=== PATIENT | female | born 1935 | race Caucasian/White ===

== ENCOUNTER 2017-08-21 11:01 | Inpatient (IN) ==
[2017-08-21 12:00] LABS: Mean Corpuscular HGB Conc 33.1 g/dL (31.0-36.0); Mean Corpuscular Hemoglobin 27.8 pg (26.0-34.0); Platelet Count 412 K/mcL (140-440); RBC 4.32 M/mcL (4.00-5.20); Red Cell Distribution Width 15.1 % (11.5-14.5)
[2017-08-21 12:23] LABS: ALT/SGPT 24 U/l (0-40); Albumin 3.7 gm/dL (3.2-5.2); Alkaline Phosphatase 80 U/L (39-117); Blood Urea Nitrogen 11 mg/dl (8-23)
[2017-08-21 12:25] LABS: Basophils % (Manual) 1 % (0-2); Lymphocytes % 16 % (15-49); Monocytes % (Manual) 5 % (1-12); Platelet Estimate NORMAL (NORMAL); RBC Morphology NORMAL (NORMAL); Segmented Neutrophils % 78 % (38-78)
[2017-08-21] MEDS: 0.9 % SODIUM CHLORIDE 1,000 ML IV SCH ×2 (12:30→16:52)
--- NOTE | 2017-08-21 12:38 | Emergency Department Note ---
Weakness HPI - General Chief complaint: Weakness Stated complaint: Weakness Time Seen by Provider: 08/21/17 11:33 Source: family Mode of arrival: wheelchair Limitations: physical limitation - History of Present Illness HPI Narrative: This pleasant 81-year-old female comes to the emergency room at the request of her primary care physician, Dr. Travis Johnson, who called me this morning. He reported her history of COPD and some chronic hyponatremia that has been difficult at times to figure out what to do and cause. She has had symptoms of weakness, slurred speech, mental dysfunction. She has had a recent pneumonia that was seen on recent CT scan is of bilateral posterior basilar infiltrate and suspicious for aspiration although she has no specific history of this. She is also had some nausea and vomiting. She has chronic GI symptoms. She has had her sodium levels repeated, has had fluid retention, has been losing some weight. She has been on doxycycline for pneumonia. She has been to the emergency room 2 times. Because of her mental status changes and weakness a CT recently was done of her head. Consideration for observation and trying to give her some additional fluid and/or workup is discussed. Patient reports that a year ago she was seen for her low sodium and admitted for several days. She was acting a little crazy at that time and could not speak well. Sometimes now (currently) it seems that she cannot get her mouth to work, and she has some dysfunction in her left hand as well as some weakness in her right arm. She has had recent CT scan of the brain and chest as well as an ultrasound of her heart she believes this was 5 days ago. Her last pill for doxycycline for the pneumonia was yesterday. The pneumonia has been for a couple of weeks. It started as a soreness in her chest and wheezing and a little blood in her phlegm. The weakness has been going on for at least a week. Her legs feel weak and are hard to move. She cannot seem to do much. This is made her somewhat even depressed and tearful recently. She only takes her celecoxib maybe once a week. She rarely uses her narcotics. She is not on any diuretic. She does not have any chronic kidney failure, cirrhosis or CHF that she is aware of. She has no history of tuberculosis that she is aware of. No history of thyroid disease that she knows of. She is not taking any antipsychotics or antidepressants. Patient lives in her own home with her . - Related Data Home Medications Medication Instructions Recorded Confirmed budesonide DR - ER 3 mg 3 mg PO TID each 11/02/14 08/21/17 capsule,delayed,extended release multivitamin tablet 1 tab PO QDAY tab 11/02/14 08/20/17 Bifidobacterium infantis 4 mg 4 mg PO QDAY 09/05/16 08/21/17 capsule sodium chloride 1 gram tablet 1 tab PO BID tab 08/09/17 08/20/17 Previous Rx's Medication Instructions Recorded tiotropium bromide 18 mcg capsule 1 cap INHALATION QDAY #90 puff 07/30/16 with inhalation device hyoscyamine 0.125 mg sublingual 0.125 mg PO Q6H PRN #60 tab 09/05/16 tablet albuterol sulfate HFA 90 90 mcg INHALATION Q6H #8.5 g 11/27/16 mcg/actuation aerosol inhaler inhalational spacing device See Dose Instructions .ROUTE 11/29/16 .MEDSUPPLY #1 each celecoxib 200 mg capsule 200 mg PO BID PRN 90 Days #180 cap 01/22/17 hydrocodone 5 mg-acetaminophen 325 0.5 tab PO Q8H PRN #20 tab 01/22/17 mg tablet ondansetron 4 mg disintegrating 4 mg PO Q6H PRN #20 tab 01/22/17 tablet metoclopramide 5 mg tablet 5 mg PO TID #30 tab 03/19/17 potassium chloride ER 10 mEq 10 meq PO QDAY #90 tab 05/23/17 tablet,extended release fluticasone 250 mcg-salmeterol 50 1 inh INHALATION Q12H #180 each 07/09/17 mcg/dose blistr powdr for inhalation lansoprazole 30 mg capsule,delayed 60 mg PO QDAY #180 cap 07/19/17 release pilocarpine 5 mg tablet 5 mg PO TID #270 tab 07/19/17 hydroxychloroquine 200 mg tablet 200 mg PO QDAY #90 tab 07/23/17 Nebulizer Machine and associated #1 each 08/09/17 supplies ipratropium-albuterol 0.5 mg-3 3 ml INHALATION Q6H PRN #90 ml 08/09/17 mg(2.5 mg base)/3 mL nebulization soln doxycycline hyclate 100 mg tablet 100 mg PO BID #20 tab 08/10/17 Allergies Allergy/AdvReac Type Severity Reaction Status Date / Time azithromycin [From Zithromax] Allergy Severe Anaphylaxis Verified 08/20/17 15:48 azathioprine [From Imuran] Allergy Unknown Anaphylaxis Verified 08/20/17 15:48 clarithromycin Allergy Unknown Palpitation Verified 08/20/17 15:48 s morphine AdvReac Severe Vomiting Verified 08/20/17 15:48 Erythromycin Base AdvReac Unknown Vomiting Verified 08/20/17 15:48 lactose AdvReac Verified 08/21/17 11:13 tape Allergy Intermediate Rash Uncoded 08/20/17 15:48 codeine sulfate AdvReac Intermediate Vomiting Uncoded 08/20/17 15:48 Review of Systems Review of Systems: No fevers or chills. She does have some night sweats. She has had a little chest pain with breathing. His coughing a little short of breath. Abdominal discomfort seems like a pressure. No vomiting. No dysuria. Has some right arm pain which she attributes to degenerative disks in her neck. Has occasional headaches. She does feel quite weak. She has numbness of the left upper extremity as well as weakness in that left hand. Her right foot feels numb just today. She admits to some anxiety chronically. She has had some depression more recently because of her disabilities described above. Has had significant fatigue for a month. She has cold intolerance. She has lost some weight, used to weigh 134. She does have fragile bleeding of her arms and at their areas with any bumping. She denies bleeding gums or blood in her stools. Past Medical History - Past Medical History Medical history: Reports: arthritis, cancer (melanoma, colon neoplasm), COPD, GERD, osteoporosis, other (Crohns, Sjogrens, Chronic pain, Gastroparesis, Gout. Hyponatremia, chronic. Pneumonia. Pseudogout. Sicca Syndrome. Weight loss, unintended. Ventricular fibrillation. Diverticulosis. Diarrhea. DDD.). Denies: CHF, CVA, DM, liver disease, myocardial infarction, renal disease, thyroid disease Psychiatric history: Reports: anxiety (Mild). Denies: depression (now experiencing symptoms.) Surgical history ED: Reports: appendectomy, cataract, cholecystectomy, colectomy (Partial, due to Crohn's), hip replacement (Right), hysterectomy, knee replacement (Bilateral), pacemaker/AICD, other (biliary stent. Anal fissure repair. Anal stricture dilation. ) - Social History smoking status: Former smoker (Quit 30 years ago) Alcohol use: Reports: None Drug use: Reports: none. Denies: marijuana Physical Exam Limitations: physical limitation General appearance: alert, in no apparent distress Head: atraumatic, normocephalic Eye: Present: normal appearance, PERRL, EOMI. Absent: scleral icterus, conjunctival injection ENT: normal oropharynx, mucous membranes moist Neck: Present: trachea midline. Absent: lymphadenopathy, thyromegaly Respiratory: Present: normal lung sounds bilaterally. Absent: respiratory distress, wheezes, stridor, accessory muscle use, prolonged expiratory phase Cardiovascular: Present: regular rate, normal rhythm. Absent: systolic murmur, diastolic murmur Abdominal: Present: soft, tenderness (mild in the lower 1/2.). Absent: distention, guarding, rebound, rigidity, organomegaly, mass Extremities: Absent: pedal edema, pretibial edema, calf tenderness Back: Absent: CVA tenderness (R), CVA tenderness (L), spinous process tenderness Neurological: Present: alert, oriented X3 Psychiatric: Present: normal affect, normal mood, other (Became mildly tearful when talking about her multiple problems) Skin: Present: warm, dry Course Vital Signs Temperature 97.6 F 08/21/17 11:03 Pulse Rate 80 08/21/17 11:03 Respiratory Rate 22 08/21/17 11:03 Pulse Oximetry (%) 95 08/21/17 11:03 Temperature 97.6 F 08/21/17 11:33 Pulse Rate 69 08/21/17 12:46 Respiratory Rate 18 08/21/17 12:46 Blood Pressure 122/110 08/21/17 12:46 Pulse Oximetry (%) 93 08/21/17 12:46 Weakness - MDM Narrative Medical decision making narrative: 11:45 AM - Difficult chronic hyponatremia case. Will repeat labs even though they were done yesterday. Consider further workup and/or treatment. Recent CT scans were negative. 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 She has some difficulty with speech but overall is relatively eloquent and memory is intact. Differential dx: Could her hyponatremia simply be SIADH? Could there be tuberculosis? Could the infiltrates that show up on the CT scan be actual cancer? (ALSO HAD MULTIPLE SMALL NODULES - inflammatory?) Could this be essential hyponatremia (reset osmostat)? No previous osmolalities tested that I could see. 1:00 PM -case discussed with Dr. Potter, hospitalist, who kindly accepted this patient as observation. She will consider assist with additional work-up or intervention; consider fluorinef, etc. Does she need new antibiotic? Bronchoscopy? TSH? Other hormone levels? Osmolarities urine and blood? Currently receiving one liter of NS, and at home has been getting Saline pills, 1 gram BID. - Lab Data Result diagrams: 08/21/17 11:32 08/21/17 11:32 Lab Results 08/21/17 08/21/17 Range/Units 11:32 11:32 WBC 8.6 (4.5-11.0) K/mcL RBC 4.32 (4.00-5.20) M/mcL Hgb 12.0 (12.0-15.0) g/dL Hct 36.3 (36.0-48.0) % MCV 84.0 (80.0-100.0) fL MCH 27.8 (26.0-34.0) pg MCHC 33.1 (31.0-36.0) g/dL RDW 15.1 H (11.5-14.5) % Plt Count 412 (140-440) K/mcL MPV 6.8 L (7.4-10.4) fL Total Counted 100 Seg Neutrophils % 78 (38-78) % Band Neutrophils % Not Reportable Lymphocytes % 16 (15-49) % Monocytes % (Manual) 5 (1-12) % Basophils % (Manual) 1 (0-2) % Platelet Estimate Normal (NORMAL) RBC Morphology Normal (NORMAL) Sodium 126 L (133-145) mmol/L Potassium 4.1 (3.3-5.1) mmol/L Chloride 89 L (96-108) mmol/L Carbon Dioxide 26 (22-30) mmol/L Anion Gap 11.0 (8-16) BUN 11 (8-23) mg/dl Creatinine 0.8 (0.6-1.1) mg/dl GFR Calculation 69 Glucose 91 (70-105) mg/dL Calcium 9.2 (8.6-10.4) mg/dl Total Bilirubin 0.5 (0.0-1.0) mg/dL AST 37 (0-37) U/l ALT 24 (0-40) U/l Alkaline Phosphatase 80 (39-117) U/L Total Protein 7.3 (5.9-8.4) gm/dL Albumin 3.7 (3.2-5.2) gm/dL Globulin 3.6 (2.2-3.7) gm/dL Albumin/Globulin Ratio 1.0 (1.0-2.3) Disposition Pt seen by MANAGER INSTRUMENTATION/PA only: No Clinical Impression: Hyponatremia, Weakness, H/O calcium pyrophosphate deposition disease (CPPD) Diarrhea Qualifiers: Diarrhea type: unspecified type Qualified Code(s): R19.7 - Diarrhea, unspecified Pneumonia Qualifiers: Pneumonia type: due to unspecified organism Laterality: bilateral Lung location : lower lobe of lung Qualified Code(s): J18.1 - Lobar pneumonia, unspecified organism Disposition: Xfer As Outpt/Obs ([facility]) Referrals: Travis Johnson MD [Primary Care Provider] -
[2017-08-21 16:24] LABS: Appearance,Urine CLEAR; Bilirubin,Urine NEG (NEG); Color,Urine YELLOW; Glucose,Urine (UA) NEGATIVE (NEG); Leukocyte Esterase,Urine NEG /uL (NEG); Protein,Urine NEG (NEG); Specific Gravity,Urine 1.012 (1.000-1.035); Urine Blood NEG mg/dL (<0.03); Urobilinogen,Urine NEG (NEG)
--- NOTE | 2017-08-21 17:28 | Internal Med History&Physical ---
Medical - H&P: [facility] Patient information: Note initiated : 08/21/17 at 4:56 pm Service Date, if different from initiated Date: [] Patient: Maribeth Berrios a 81 y/o F admitted on 08/21/17 for Weakness. Chief Complaint: lightheadedness and weakness History of present illness: Ms. Berrios is a 81 year old F, referred to ED by PCP (Dr Travis Johnson) for chronic hyponatremia, weakness, stroke-like symptoms and frequent falls. Patient has had an extensive work-up done including CT-head, ECHO, CT-scan etc. as outpatient. Now requesting admission for evaluation and treatment. Patient has had Crohn's disease for many years till 2010. However, started to have problems consistent with gastroparesis since then. The last few weeks patient has sought medical attention for a variety of reasons including coughing, SOB and dysarthria. She was diagnosed with bilateral pneumonia by CTAchest done on 08/16 for SOB. On 08/20 Na was 124 and on 126. Patient states that she has had lightheadedness upon standing for the last 6 days. However, overall decline for about a year with gradual weight loss. Was 165 lbs and is currently only 102 lbs. She c/o early satiety and nausea or epigastric pain with po intake. Patient was diagnosed with gastroparesis by gastrografin study (passage took more than 4 hours). She only drinks supplements , total diane intake is less than 1000 diane daily. Other problems include severe back pain due to multiple compression fractures in T and L spine. Patient has had multiple falls due to weakness. There is no localized motor deficit. - Constitutional Constitutional: Present: anorexia, fatigue, frequent falls, weakness, weight loss - Cardiovascular Cardiovascular: Present: lightheadedness. Absent: chest pain, claudication, irregular heart rhythm, palpatations - Respiratory Respiratory: Absent: cough, dyspnea, hemoptysis - Gastrointestinal Gastrointestinal: Present: dyspepsia, dysphagia, early satiety, vomiting - Genitourinary Genitourinary: Absent: difficulty urinating, dysuria Medical - H&P: PMH Medical history: Medical History Hyponatremia (Acute) Pneumonia (Acute) Osteopenia (Acute) H/O calcium pyrophosphate deposition disease (CPPD) (Chronic) Osteoarthritis (Chronic) Sicca syndrome (Chronic) Encounter for long-term current use of high risk medication (Chronic) Inflammatory arthropathy (Chronic) Epigastric burning sensation (Chronic) Weight loss, unintentional (Chronic) Bronchitis (Acute) COPD (chronic obstructive pulmonary disease) with acute bronchitis (Acute) Gastroparesis (Chronic) Back pain (Chronic) Diverticulosis of colon (Acute) Anal benign neoplasm (Acute) Wound infection (Acute) Wound cellulitis (Acute) Ventricular fibrillation (Acute) Pain due to varicose veins of lower extremity (Acute 08/02/14) History of urinary tract infection (Acute) Melanoma of skin (Acute) Sjogren's syndrome (Acute) Polyarthropathy or polyarthritis of multiple sites (Acute) Phlebitis and thrombophlebitis of superficial vessels of lower extremities ( Acute 08/02/14) Perianal abscess (Acute) Osteoporosis (Acute) Nausea (Acute) Postmenopausal related mood disorder (Acute) Analgesic use (Acute) Hernia, hiatal (Acute) Gouty arthropathy (Acute) Gout (Acute) Gastroesophageal reflux (Acute) Fracture of finger, closed (Acute) Enthesopathy of hip region (Acute) Early satiety (Acute) Diverticulosis of small intestine (Acute) Diarrhea (Acute) Crohn's disease (Acute) Chronic obstructive pulmonary disease (Chronic) Arthritis (Acute) Ankle pain (Acute 07/22/14) Anal fissure (Acute) Abdominal pain (Acute) Abdominal bloating (Acute) Surgical history: Past Surgical History History of colonoscopy (Acute 02/22/15) History of biliary stent insertion (Acute) History of knee replacement (Acute) History of total hip arthroplasty (Acute) History of sigmoidoscopy (Acute 07/27/15) History of rectal surgery (Acute) History of hysterectomy (Acute) History of esophagogastroduodenoscopy (Acute 09/17/14) History of colectomy (Acute) History of cholecystectomy (Acute) History of intestinal surgery (Acute) History of appendectomy (Acute) History of automatic internal cardiac defibrillator (AICD) (Acute) Status post laparoscopic-assisted sigmoidectomy (Chronic 10/11/15) Smoking status: Former smoker Drug use: none Alcohol use: none Medical - H&P: Meds Home Medications Medication Instructions Recorded Confirmed Type budesonide DR - ER 3 mg 3 mg PO TID each 11/02/14 08/21/17 History capsule,delayed,extended release multivitamin tablet 1 tab PO QDAY tab 11/02/14 08/21/17 History tiotropium bromide 18 mcg capsule 1 cap INHALATION QDAY #90 puff 07/30/16 Rx with inhalation device Bifidobacterium infantis 4 mg 4 mg PO QDAY 09/05/16 08/21/17 History capsule hyoscyamine 0.125 mg sublingual 0.125 mg PO Q6H PRN #60 tab 09/05/16 08/21/17 Rx tablet albuterol sulfate HFA 90 90 mcg INHALATION Q6H #8.5 g 11/27/16 08/21/17 Rx mcg/actuation aerosol inhaler inhalational spacing device See Dose Instructions .ROUTE 11/29/16 08/20/17 Rx .MEDSUPPLY #1 each celecoxib 200 mg capsule 200 mg PO BID PRN 90 Days #180 cap 01/22/17 08/21/17 Rx hydrocodone 5 mg-acetaminophen 325 0.5 tab PO Q8H PRN #20 tab 01/22/17 08/21/17 Rx mg tablet ondansetron 4 mg disintegrating 4 mg PO Q6H PRN #20 tab 01/22/17 08/21/17 Rx tablet metoclopramide 5 mg tablet 5 mg PO TID #30 tab 03/19/17 08/21/17 Rx potassium chloride ER 10 mEq 10 meq PO QDAY #90 tab 05/23/17 08/21/17 Rx tablet,extended release fluticasone 250 mcg-salmeterol 50 1 inh INHALATION Q12H #180 each 07/09/1708/21 Rx mcg/dose blistr powdr for inhalation lansoprazole 30 mg capsule,delayed 60 mg PO QDAY #180 cap 07/19/17 08/21/17 Rx release pilocarpine 5 mg tablet 5 mg PO TID #270 tab 07/19/17 08/21/17 Rx hydroxychloroquine 200 mg tablet 200 mg PO QDAY #90 tab 07/23/17 08/21/17 Rx Nebulizer Machine and associated #1 each 08/09/17 08/20/17 Rx supplies ipratropium-albuterol 0.5 mg-3 3 ml INHALATION Q6H PRN #90 ml 08/09/17 08/21/17 Rx mg(2.5 mg base)/3 mL nebulization soln sodium chloride 1 gram tablet 1 tab PO BID tab 08/09/17 08/21/17 History Allergies Allergy/AdvReac Type Severity Reaction Status Date / Time azithromycin [From Zithromax] Allergy Severe Anaphylaxis Verified 08/20/17 15:48 azathioprine [From Imuran] Allergy Unknown Anaphylaxis Verified 08/20/17 15:48 clarithromycin Allergy Unknown Palpitation Verified 08/20/17 15:48 s morphine AdvReac Severe Vomiting Verified 08/20/17 15:48 Erythromycin Base AdvReac Unknown Vomiting Verified 08/20/17 15:48 lactose AdvReac Verified 08/21/17 11:13 tape Allergy Intermediate Rash Uncoded 08/20/17 15:48 codeine sulfate AdvReac Intermediate Vomiting Uncoded 08/20/17 15:48 Medical - H&P: Exam - Constitutional Vitals: Temp Pulse Resp BP Pulse Ox 98.5 F 82 16 123/71 96 08/21/17 16:00 08/21/17 16:00 08/21/17 16:00 08/21/17 16:00 08/21/17 16:00 General appearance: no acute distress, thin - Head Head exam: Present: normal inspection - Eye Eye exam: Present: PERRL - Neck Neck exam: Present: normal inspection - Respiratory Respiratory exam: Present: normal respiratory exam - Cardiovascular Cardiovascular exam: Present: irregular rhythm Additional comments: S/P AICD placement - GI/Abdominal GI/Abdominal exam: Present: normal bowel sounds, soft - Extremities Exam Extremities exam: Present: normal inspection - Expanded Upper Extremities Exam General: Present: abrasion - Neurological Exam Neurological exam: Present: CN II-XII intact - Skin Additional comments: Multiple ecchymoses due to falls Medical - H&P: Reslt - Labs CBC & Chem 7: 08/21/17 11:32 08/21/17 11:32 Labs: Short CBC 08/21/17 Range/Units 11:32 WBC 8.6 (4.5-11.0) K/mcL Hgb 12.0 (12.0-15.0) g/dL Hct 36.3 (36.0-48.0) % Plt Count 412 (140-440) K/mcL BMP 08/21/17 11:32 Sodium 126 L Potassium 4.1 Chloride 89 L Carbon Dioxide 26 BUN 11 Creatinine 0.8 Glucose 91 Calcium 9.2 Liver Function 08/21/17 Range/Units 11:32 Total Bilirubin 0.5 (0.0-1.0) mg/dL AST 37 (0-37) U/l ALT 24 (0-40) U/l Alkaline Phosphatase 80 (39-117) U/L Albumin 3.7 (3.2-5.2) gm/dL Urine 08/21/17 Range/Units 15:58 Urine Color Yellow Urine Appearance Clear Urine pH 6.0 (5.0-9.0) Ur Specific [place] 1.012 (1.000-1.035) Urine Protein Neg (NEG) mg/dL Urine Glucose (UA) Negative (NEG) mg/dL Medical - H&P: A/P - Narrative A/P Narrative: 81-year-old with following problems: - Generalized weakness, lightheadedness, falls CT-head: no acute changes. Chronic ischemic changes Likely due to weight/muscle loss No orthostatic hypotension. TSH/cortisol level/vit B 12 level: wnl. Aldosterone level: P Urine sodium: 40 (however patient is on NaHCO3 tabs) - Gastroparesis/ early satiety. Sometimes nausea and vomiting after solid food intake. Denies problems with swallowing. Is on reglan and zofran - Gradual loss in weight since one year. Baseline weight was 165 lbs. Attributes it to the gastroparesis and early satiety - Hyponatremia of 126 DD SIADH, renal wasting sx, poor intake Has been started on salt tabs BID on 08/20 - Sicca syndrome - Chrohn's disease dormant since 2010 - Chronic severe back pain due to multiple compression fractures - S/P AICD placement for cardiac arrest in 2010 PLAN: - Check urine sodium, cortisol level etc. TSH ...done - calorie count and surveillance director recomm regarding supplements containing Na and protein. - Pt/OT eval - increase to salt tab to TID and watch BP Medical - H&P: Qual - Stroke Symptom Onset Unknown: No - VTE Deep Vein Thrombosis/Pulmonary Embolism Present on Admission: No
[2017-08-21] MEDS ORDERED: IPRATROPIUM/ALBUTEROL 3 ML AMPUL.NEB NEB PRN (17:43)
[2017-08-21] MEDS ORDERED: CELECOXIB 200 MG CAPSULE PO PRN (17:43)
[2017-08-21] MEDS ORDERED: SODIUM CHLORIDE 1 GM TABLET PO SCH (21:00)
[2017-08-21] MEDS ORDERED: METOCLOPRAMIDE 5 MG TABLET PO SCH (21:00)
[2017-08-21] MEDS ORDERED: HYDROcodone/APAP 5/325MG TABLET PO ONE (21:18)
[2017-08-21] MEDS ORDERED: ONDANSETRON ODT 4 MG TABLET ONE (21:18)
[2017-08-21] MEDS: SODIUM CHLORIDE 1 GM TABLET PO SCH (21:28)
[2017-08-21] MEDS: 0.9 % SODIUM CHLORIDE 10 ML SYRINGE IV SCH (21:29)
[2017-08-21] MEDS ORDERED: ONDANSETRON ODT 4 MG TABLET SL PRN (21:54)
[2017-08-21] MEDS: FLUTICASONE/SALMETEROL 250/50 INHALER #14 INH SCH (22:30)
[2017-08-21] MEDS: PILOCARPINE HCL 5 MG PO SCH (22:30)
[2017-08-21] MEDS: ALBUTEROL SULFATE 1 PUFF INHALER INH SCH (22:31)
[2017-08-22] MEDS: ALBUTEROL SULFATE 1 PUFF INHALER INH SCH ×4 (00:13→17:51)
[2017-08-22] MEDS: HYDROcodone/APAP 5/325MG TABLET PO PRN (04:35)
[2017-08-22] MEDS: 0.9 % SODIUM CHLORIDE 10 ML SYRINGE IV SCH ×3 (04:39→20:34)
[2017-08-22 05:35] LABS: Basophils # (Auto) 0 K/mcL (0.0-0.3); Basophils % (Auto) 0.7 % (0.0-2.0); Eosinophils # (Auto) 0.2 K/mcL (0.0-0.7); Eosinophils % (Auto) 2.9 % (0.0-7.0); Granulocytes % (Auto) 51.7 % (38.0-78.0); Lymphocytes % (Auto) 32.5 % (15.5-49.0); Mean Cell Volume 84.4 fL (80.0-100.0); Mean Corpuscular HGB Conc 33.1 g/dL (31.0-36.0); Mean Corpuscular Hemoglobin 27.9 pg (26.0-34.0); Monocytes # (Auto) 0.7 K/mcL (0.1-0.9); Monocytes % (Auto) 12.2 % (1.0-12.0); Platelet Count 429 K/mcL (140-440); RBC 4.11 M/mcL (4.00-5.20); Red Cell Distribution Width 15.5 % (11.5-14.5)
[2017-08-22 05:58] LABS: ALT/SGPT 22 U/l (0-40); Albumin 3.4 gm/dL (3.2-5.2); Albumin/Globulin Ratio 0.9 (1.0-2.3); Alkaline Phosphatase 73 U/L (39-117); Bilirubin,Direct < 0.2 mg/dL (0.0-0.3); Blood Urea Nitrogen 12 mg/dl (8-23); Gamma Glutamyl Transpeptidase 38 U/L (5-36); Uric Acid 3.5 mg/dL (2.5-8.0)
[2017-08-22] MEDS: PANTOPRAZOLE 40 MG TABLET PO SCH (07:16)
[2017-08-22] MEDS ORDERED: METOCLOPRAMIDE 10 MG TABLET PO SCH (07:30)
[2017-08-22] MEDS: FLUTICASONE/SALMETEROL 250/50 INHALER #14 INH SCH ×2 (09:00→20:25)
[2017-08-22] MEDS: PILOCARPINE HCL 5 MG PO SCH ×3 (09:00→20:30)
[2017-08-22] MEDS: SODIUM CHLORIDE 1 GM TABLET PO SCH ×3 (09:02→20:21)
[2017-08-22] MEDS: POTASSIUM CHLORIDE 10 MEQ TABLET PO SCH (09:02)
[2017-08-22] MEDS: HYDROXYCHLOROQUINE 200 MG TABLET PO SCH (09:02)
--- NOTE | 2017-08-22 09:10 | XRay Report ---
CLINICAL INFORMATION: Follow up lower lobe infiltrates COMPARISON: Chest CT 08/16/2017 and plain film 08/09/2017 FINDINGS: Automated defibrillator in stable satisfactory position. Cardiomediastinal silhouette and pulmonary vessels are normal. Moderate sized densely consolidated infiltrate posterior left lower lobe and smaller infiltrate posterior right lower lobe show mild improvement since 08/09/2017 plain film. Small bilateral pleural effusions noted IMPRESSION: Moderate sized consolidated infiltrate posterior left lower lobe with smaller infiltrate in the posterior right lower lobe - mild improvement. Interpreted and Authenticated by: Kailash Wild 08/22/17
[2017-08-22] MEDS ORDERED: AZITHROMYCIN 250 MG TABLET PO ONE (09:12)
[2017-08-22] MEDS ORDERED: PROMETHAZINE 25 MG/ML VIAL IV PRN (09:13)
[2017-08-22] MEDS: metroNIDAZOLE 500 MG/100 ML BAG IV SCH ×3 (10:24→22:35)
[2017-08-22] MEDS: cefTRIAXone 1 GM VIAL IV SCH (10:24)
[2017-08-22] MEDS ORDERED: NON FORMULARY MEDICATION 1 DOSE MISCELL TOPICAL SCH (11:00)
--- NOTE | 2017-08-22 11:01 | Internal Med Progress Note ---
Medical - PN: Subj Patient information: Note initiated : 08/22/17 at 10:58 am Service Date, if different from initiated Date: [] Patient: Maribeth Berrios a 81 y/o F admitted on 08/21/17 for Weakness. Chief Complaint: [] Interval history: Ms. Berrios is a 81 year old F, referred to ED by PCP (Dr Travis Johnson) for chronic hyponatremia, weakness, stroke-like symptoms and frequent falls. Patient has had an extensive work-up done including CT-head, ECHO, CT-scan etc. as outpatient. Now requesting admission for evaluation and treatment. Patient has had Crohn's disease for many years till 2010. However, started to have problems consistent with gastroparesis since then. The last few weeks patient has sought medical attention for a variety of reasons including coughing, SOB and dysarthria. She was diagnosed with bilateral pneumonia by CTAchest done on 08/16 for SOB. On 08/20 Na was 124 and on 126. Patient states that she has had lightheadedness upon standing for the last 6 days. However, overall decline for about a year with gradual weight loss. Was 165 lbs and is currently only 102 lbs. She c/o early satiety and nausea or epigastric pain with po intake. Patient was diagnosed with gastroparesis by gastrografin study (passage took more than 4 hours). She only drinks supplements , total diane intake is less than 1000 diane daily. Other problems include severe back pain due to multiple compression fractures in T and L spine. Patient has had multiple falls due to weakness. There is no localized motor deficit. 08/22 She is seen and examined, family by the bedside. Patient has no acute complaints. Slept well yesterday. Tolerated p.o. diet well. She notes she has been diagnosed with gastroparesis and has multiple workup for GI pathology. She follows up with Dr. Vale. She notes that pain medications often times because worsening of her GI symptoms. Her X ray shows pneumonia, slightly improving. Patient has been treated with doxycycline as outpatient. Will start patient on rocephin and metronidazole today. Blood cultures sent Calorie count ordered continue to work with therapy to improve gait and balance. Pertinent ROS: Denies headache, dizziness Denies chest pain, palpitations Denies cough or shortness of breath Denies abdominal pain, nausea or vomiting. (not present today, but has it after taking pain meds) - Constitutional Vitals: Vital Signs Temp Pulse Resp BP Pulse Ox 97.5 F 67 24 H 134/83 95 08/22/17 07:12 08/22/17 07:12 08/22/17 07:12 08/22/17 07:12 08/22/17 07:12 Period Temp Pulse Resp BP Sys/Courtney Pulse Ox Last 24 Hr 97.5 F-98.5 F 67-112 16-37 107-152/65-110 90-97 Intake and Output 08/21/17 08/22/17 08/22/17 21:59 05:59 13:59 Intake Total 1000 / 1000 120 / 120 Balance 1000 / 1000 120 / 120 Weight 99 lb Intake & Output: Intake & Output 08/21/17 08/22/17 08/22/17 21:59 05:59 13:59 Intake Total 1000 / 1000 120 / 120 Balance 1000 / 1000 120 / 120 Weight 99 lb Intake: IV 1000 / 1000 Sodium Chloride 0.9% 1,000 ml @ 1000 / 1000 500 mls/hr IV .Q2H [facility] Rx#: [id number] Oral 120 / 120 Other: Meal Breakfast Percent of Meal Consumed 75% Feeding Ability Independent Stool Size Small Stool Color Brown Stool Consistency Loose # Voids 1 2 # Bowel Movements 1 # Emeses 0 Exam: Constitutional; Afebrile, cooperative, alert, not in distress. Eyes- No icterus, , No periorbital swelling Ears- Ext ear normal, hearing normal to conversation. Neck- Midline trachea, supple Respiratory system: Air Entry equal on both sides, left basilar crackles, no wheeze, speaking full sentences no accessory muscle use. CVS- Rate rhythm regular, S1,S2 heard, no gallop, no rub. Abdomen- Soft nontender abdomen, no organomegaly, no tenderness, no guarding or rigidity, CONTROL OFFICER- AOOx3, moving all extremities, no gross focal deficit noted. Medical - PN: Obj Da - Labs CBC & Chem 7: 08/22/17 03:50 08/22/17 03:50 Labs: Abnormal Lab Results 08/22/17 08/22/17 08/21/17 03:50 03:50 11:32 Hgb 11.5 L Hct 34.7 L RDW 15.5 H MPV 7.3 L Laurel % (Auto) 12.2 H Sodium 132 L 126 L Chloride 94 L 89 L GGT 38 H Lactate Dehydrogenase 328 H Albumin/Globulin Ratio 0.9 L 08/21/17 11:32 Hgb Hct RDW 15.1 H MPV 6.8 L Laurel % (Auto) Sodium Chloride GGT Lactate Dehydrogenase Albumin/Globulin Ratio Meds: Medications Hydrocodone Bitart/Acetaminophen (Bloxom 5/325mg) 0.5 tab PO Q8HP PRN PRN Reason: Pain Last Admin: 08/22/17 04:35 Dose: 0.5 tab Albuterol Sulfate (Ventolin) 1 puff INH Q6H [facility] Last Admin: 08/22/17 05:39 Dose: Not Given Albuterol/Ipratropium (Duoneb) 3 ml NEB Q6HP PRN PRN Reason: shortness of breath or wheezin Bacitracin (Bacitracin Topical Oint) 1 dose TOPICAL HS [facility] Ceftriaxone Sodium (Rocephin) 1 gm IV DAILY [facility] Last Admin: 08/22/17 10:24 Dose: 1 gm Celecoxib (Celebrex) 200 mg PO BIDP PRN PRN Reason: Pain Glucose Oxid/Lactoperoxid/Muramidas (Biotene) 1 each TOPICAL QHS [facility] Hydroxychloroquine Sulfate (Plaquenil) 200 mg PO QDAY [facility] Last Admin: 08/22/17 09:02 Dose: 200 mg Metronidazole (Flagyl) 500 mg in 100 mls @ 100 mls/hr IV Q8H [facility] Last Admin: 08/22/17 10:24 Dose: 100 mls/hr Non-Formulary Medication () 0 dose TOPICAL DAILY [facility] Pantoprazole Sodium (Protonix) 40 mg PO QAMAC [facility] Last Admin: 08/22/17 07:16 Dose: 40 mg Bifidobacterium Infantis [Align] 4 Mg 1 dose PO DAILY [facility] Pilocarpine Hcl [ (Salagen] 5 Mg) 1 dose PO TID [facility] Last Admin: 08/21/17 22:30 Dose: Not Given Diclofenac Epolamine [Flector] 1.3% Transdermal Patch 1 dose TOPICAL Q12H [facility] Potassium Chloride (Kdur) 10 meq PO QAMCC [facility] Last Admin: 08/22/17 09:02 Dose: 10 meq Promethazine HCl (Phenergan) 12.5 mg IV Q4HP PRN PRN Reason: Nausea And Vomiting Fluticasone/Salmeterol (Advair 250-50 Diskus) 1 puff INH Q12H [facility] Last Admin: 08/21/17 22:30 Dose: Not Given Sodium Chloride (Saline Flush) 10 ml IV Q8 [facility] Last Admin: 08/22/17 04:39 Dose: 10 ml Sodium Chloride (Sodium Chloride) 1 gm PO TID [facility] Last Admin: 08/22/17 09:02 Dose: 1 gm Tiotropium [place] (Spiriva) 18 mcg INH QDAY [facility] Medical - PN: A/P - Time Spent With Patient Total time spent is greater than 50% in coordination of care (as documented) at patient's floor/unit and/or counseling patient: - Narrative A/P Narrative: A/P Narrative: Pneumonia/ Community acquired vs Aspiration pneumonitis - Pt was treated with Doxy as outpatient, start on rocephin and flagyl for now, to cover for gram negatives and anaerobes. Repeat CXR as ouatpient - Generalized weakness, lightheadedness, falls CT-head: no acute changes. Chronic ischemic changes Likely due to weight/muscle loss No orthostatic hypotension. TSH/cortisol level/vit B 12 level: wnl. Aldosterone level, pending. Urine sodium: 40 (however patient is on NaCl tabs) Patient symptoms related to poor intake, worsened with acute infection. - Gastroparesis/ early satiety. Sometimes nausea and vomiting after solid food intake and narcotic pain meds Denies problems with swallowing. Is on reglan and zofran, able to tolerate po diet well, (not taking reglan as per her) - Gradual loss in weight since one year. Baseline weight was 165 lbs. Attributes it to the gastroparesis and early satiety - Hyponatremia of 126 DD SIADH, renal wasting sx, poor intake Has been started on salt tabs BID on 4/3 Sodium level is improving, Acute infection can also result in SIADH and pt has an infection, need for long-term Salt tablets to be reconsidered once infection is resolved. - Sicca syndrome/ Sjogrens Pt on plaquenil continue same - Chrohn's disease dormant since 2010 - Chronic severe back pain due to multiple compression fractures on hydrocodone, and flector patches. consider non narcotic pain regime and narcotics tend to exacerbate gastroparesis. - S/P AICD placement for cardiac arrest in 2010 DVT hep sq Diet dysphagia diet, await [facility] Medical - PN: Qual - Stroke Symptom Onset Unknown: No - VTE Deep Vein Thrombosis/Pulmonary Embolism Present on Admission: No
[2017-08-22] MEDS: Bifidobacterium Infantis [Align] 4 MG PO SCH (11:06)
[2017-08-22] MEDS: TIOTROPIUM BROMIDE 18 MCG INHALANT INH SCH (11:06)
[2017-08-22] MEDS: ONDANSETRON 4 MG/2 ML VIAL IV PRN (11:39)
[2017-08-22] MEDS: METOCLOPRAMIDE 10 MG/2 ML VIAL IV SCH ×2 (12:41→17:27)
[2017-08-22] MEDS: HEPARIN 5,000 UNIT/ML VIAL SQ SCH ×2 (12:41→20:22)
[2017-08-22] MEDS: DICLOFENAC EPOLAMINE 1.3% TOPICAL SCH ×2 (14:24→20:25)
[2017-08-22] MEDS ORDERED: AMITRIPTYLINE 10 MG TABLET PO SCH (21:00)
[2017-08-22] MEDS ORDERED: BACITRACIN TOPICAL OINT 15 GM TUBE TOPICAL SCH (21:00)
[2017-08-22] MEDS ORDERED: LACTOPEROXI/GLUC OXID/POT THIO 1 EACH GEL..EA. TOPICAL SCH (21:00)
[2017-08-23] MEDS: METOCLOPRAMIDE 10 MG/2 ML VIAL IV SCH ×3 (00:39→12:32)
[2017-08-23] MEDS: ALBUTEROL SULFATE 1 PUFF INHALER INH SCH ×2 (00:40→05:40)
[2017-08-23] MEDS: 0.9 % SODIUM CHLORIDE 10 ML SYRINGE IV SCH (05:39)
[2017-08-23] MEDS: metroNIDAZOLE 500 MG/100 ML BAG IV SCH (05:39)
[2017-08-23 06:27] LABS: Basophils # (Auto) 0 K/mcL (0.0-0.3); Basophils % (Auto) 0.6 % (0.0-2.0); Eosinophils # (Auto) 0.1 K/mcL (0.0-0.7); Eosinophils % (Auto) 3.4 % (0.0-7.0); Granulocytes % (Auto) 49.7 % (38.0-78.0); Lymphocytes # (Auto) 1.3 K/mcL (1.5-4.8); Lymphocytes % (Auto) 31.7 % (15.5-49.0); Mean Cell Volume 84.7 fL (80.0-100.0); Mean Corpuscular HGB Conc 33.2 g/dL (31.0-36.0); Mean Corpuscular Hemoglobin 28.1 pg (26.0-34.0); Monocytes # (Auto) 0.6 K/mcL (0.1-0.9); Monocytes % (Auto) 14.6 % (1.0-12.0); Platelet Count 320 K/mcL (140-440); RBC 3.76 M/mcL (4.00-5.20); Red Cell Distribution Width 15.6 % (11.5-14.5)
[2017-08-23] MEDS: HYDROcodone/APAP 5/325MG TABLET PO PRN (06:34)
[2017-08-23] MEDS: ONDANSETRON 4 MG/2 ML VIAL IV PRN (06:39)
[2017-08-23 06:41] LABS: ALT/SGPT 19 U/l (0-40); Albumin 2.9 gm/dL (3.2-5.2); Albumin/Globulin Ratio 0.9 (1.0-2.3); Alkaline Phosphatase 63 U/L (39-117); Bilirubin,Direct < 0.2 mg/dL (0.0-0.3); Blood Urea Nitrogen 7 mg/dl (8-23); Gamma Glutamyl Transpeptidase 34 U/L (5-36); Uric Acid 3.3 mg/dL (2.5-8.0)
[2017-08-23] MEDS: PANTOPRAZOLE 40 MG TABLET PO SCH (06:42)
[2017-08-23] MEDS: POTASSIUM CHLORIDE 10 MEQ TABLET PO SCH (07:24)
[2017-08-23] MEDS ORDERED: MAGNESIUM SULFATE 2 GM/50 ML BAG IV ONE (07:44)
[2017-08-23] MEDS ORDERED: AZITHROMYCIN 250 MG TABLET PO SCH (09:00)
[2017-08-23] MEDS: HEPARIN 5,000 UNIT/ML VIAL SQ SCH (09:49)
[2017-08-23] MEDS: SODIUM CHLORIDE 1 GM TABLET PO SCH (09:50)
[2017-08-23] MEDS: HYDROXYCHLOROQUINE 200 MG TABLET PO SCH (09:50)
[2017-08-23] MEDS: cefTRIAXone 1 GM VIAL IV SCH (09:50)
[2017-08-23] MEDS: PILOCARPINE HCL 5 MG PO SCH (09:55)
[2017-08-23] MEDS: DICLOFENAC EPOLAMINE 1.3% TOPICAL SCH (09:56)
[2017-08-23] MEDS: TIOTROPIUM BROMIDE 18 MCG INHALANT INH SCH (09:58)
[2017-08-23] MEDS: FLUTICASONE/SALMETEROL 250/50 INHALER #14 INH SCH (10:09)
[2017-08-23] MEDS: Bifidobacterium Infantis [Align] 4 MG PO SCH (10:12)
--- NOTE | 2017-08-23 13:20 | Discharge Summary ---
Medical - DS: Prov Patient information: Note initiated : 08/23/17 at 1:14 pm Service Date, if different from initiated Date: [] Patient: Maribeth Berrios 81 y/o F admitted on 08/21/17 for Weakness. Chief Complaint: [] Date of admission: 08/21/17 15:07 Discharge date: 08/23/17 Primary care physician: Travis Johnson Admitting clinician: Mina Potter Discharging clinician: Peter Marie Medical - DS: Meds - Discharge Medications Prescriptions: Cefdinir 300 mg PO BID #10 cap metroNIDAZOLE [Flagyl] 500 mg PO Q8 #15 tab Sodium Chloride 1 tab PO TID #90 tab Active and Home Medications: Home Medications budesonide DR - ER 3 mg capsule,delayed,extended release 3 mg PO TID each 11/02 [History Confirmed 08/21/17 Last Taken 08/20/17] multivitamin tablet 1 tab PO QDAY tab 11/02/14 [History Confirmed 08/21/17 Last Taken 08/20/17] tiotropium bromide 18 mcg capsule with inhalation device 1 cap INHALATION QDAY # 90 puff 07/30/16 [Rx Confirmed 08/21/17 Last Taken 08/20/17] Bifidobacterium infantis 4 mg capsule 4 mg PO QDAY 09/05/16 [History Confirmed 08/21/17 Last Taken 08/20/17] hyoscyamine 0.125 mg sublingual tablet 0.125 mg PO Q6H PRN #60 tab 09/05/16 [Rx Confirmed 08/21/17 Last Taken 08/20/17] albuterol sulfate HFA 90 mcg/actuation aerosol inhaler 90 mcg INHALATION Q6H # 8.5 g 11/27/16 [Rx Confirmed 08/21/17 Last Taken Unknown] celecoxib 200 mg capsule 200 mg PO BID PRN 90 Days #180 cap 01/22/17 [Rx Confirmed 08/21/17 Last Taken 08/20/17] hydrocodone 5 mg-acetaminophen 325 mg tablet 0.5 tab PO Q8H PRN #20 tab [Rx Confirmed 08/21/17 Last Taken 08/20/17] ondansetron 4 mg disintegrating tablet 4 mg PO Q6H PRN #20 tab 01/22/17 [Rx Confirmed 08/21/17 Last Taken 08/20/17] potassium chloride ER 10 mEq tablet,extended release 10 meq PO QDAY #90 tab 09/04 [Rx Confirmed 08/21/17 Last Taken 08/20/17] fluticasone 250 mcg-salmeterol 50 mcg/dose blistr powdr for inhalation 1 inh INHALATION Q12H #180 each 07/09/17 [Rx Confirmed 08/21/17 Last Taken 08/20/17] lansoprazole 30 mg capsule,delayed release 60 mg PO QDAY #180 cap 07/19/17 [Rx Confirmed 08/21/17 Last Taken 08/20/17] pilocarpine 5 mg tablet 5 mg PO TID #270 tab 07/19/17 [Rx Confirmed 08/21/17 Last Taken 08/20/17] hydroxychloroquine 200 mg tablet 200 mg PO QDAY #90 tab 07/23/17 [Rx Confirmed 08/21/17 Last Taken 08/20/17] ipratropium-albuterol 0.5 mg-3 mg(2.5 mg base)/3 mL nebulization soln 3 ml INHALATION Q6H PRN #90 ml 08/09/17 [Rx Confirmed 08/21/17 Last Taken 08/20/17] sodium chloride 1 gram tablet 1 tab PO BID tab 08/09/17 [History Confirmed 09/04 Last Taken 08/20/17] Bacitracin Topical Oint [Bacitracin Topical Oint] 1 dose INTRANASAL QHS [History Confirmed 08/21/17 Last Taken 08/20/17 21:00] Diclofenac Epolamine [Flector] 1 each TD Q12H 08/21/17 [History Confirmed Last Taken 08/20/17 21:00] Lactoperoxi/Gluc Oxid/Pot Thio [Biotene] 1 dose PO QHS 08/21/17 [History Confirmed 08/21/17 Last Taken 08/20/17 21:00] Medical - DS: Hosp Hospital course: Ms. Berrios is a 81 year old F, referred to ED by PCP (Dr Travis Johnson) for chronic hyponatremia, weakness, stroke-like symptoms and frequent falls. Patient has had an extensive work-up done including CT-head, ECHO, CT-scan etc. as outpatient. Now requesting admission for evaluation and treatment. Patient has had Crohn's disease for many years till 2010. However, started to have problems consistent with gastroparesis since then. The last few weeks patient has sought medical attention for a variety of reasons including coughing, SOB and dysarthria. She was diagnosed with bilateral pneumonia by CTA chest done on 08/16 for SOB. On 08/20 Na was 124 and on 08/21 126. Patient states that she has had lightheadedness upon standing for the last 6 days. However, overall decline for about a year with gradual weight loss. Was 165 lbs and is currently only 102 lbs. She c/o early satiety and nausea or epigastric pain with po intake. Patient was diagnosed with gastroparesis by gastrografin study (passage took more than 4 hours). She only drinks supplements , total diane intake is less than 1000 diane daily. Other problems include severe back pain due to multiple compression fractures in T and L spine. Patient has had multiple falls due to weakness. There is no localized motor deficit. The patient was admitted to the hospital for hyponatremia, increased falls and pneumonia Pneumonia: Microbiology was reported negative, chest x-ray showed persistent pneumonia in the left lobe. Patient was started on IV Rocephin and Flagyl, patient responded to treatment very well. She will be discharged on Ceftin need and Flagyl. Flagyl added due to concern for aspiration. Patient has already used doxycycline which would cover atypicals. Doxycycline was prescribed by her PCP. Hyponatremia-patient presented with sodium of 126, patient is being discharged on salt tablets 1 tablet 3 times a day and fluid restriction of 1500 mL or 24 hours. Patient does have a history of hyponatremia in the past. Urine sodium was 80. 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 At this point in time it is difficult to determine whether the patient will need long-term salt tablets and fluid restriction. Once infection is treated it might be prudent to reassess the patient in the outpatient setting. Patient will need blood work to be done in a week's time after discharge. At the time of discharge sodium was 131 Increased falls: Patient falls could be attributed to infection and hyponatremia , patient uses a walker at home. Was fairly stable during the hospital stay. Will refer for physical therapy as outpatient. Pt declined SNF placement, and noted that she could go to PT and did not wish for home PT The patient did have significant nausea and vomiting yesterday, however was able to tolerate p.o. diet yesterday evening as well as this morning's breakfast and lunch. Patient has intermittent nausea and vomiting which she attributes to gastroparesis as well as use of narcotic pain meds. Follow-up as outpatient it seems she has had extensive workup for same in the past The rest of the stay in the hospital was uneventful, the patient's home medication list is unchanged except increasing dose of salt tablets 1 g twice a day to 1 g 3 times a day. We have placed fluid restriction and the patient of 1500 mL over 24 hours. She will take antibiotics for additional 5 days. Discharge diagnosis: Pneumonia, hyponatremia, Weakness - Time Spent with Patient Total time spent providing and/or coordinating discharge services: Greater than 30 minutes Medical - DS: Exam - Constitutional Vitals: Vital Signs Temp Pulse Resp BP BP Pulse Ox 08/23/17 12:00 97.5 F 97 H 18 125/73 94 08/23/17 07:00 98.6 F 101 H 18 126/79 96 08/23/17 04:00 97.5 F 78 16 126/78 91 08/23/17 00:00 97.9 F 71 14 125/73 92 08/22/17 19:48 98.0 F 88 16 112/76 95 08/22/17 16:00 98.2 F 78 16 103/66 94 Intake and Output 08/22/17 08/23/17 08/23/17 21:59 05:59 13:59 Intake Total 730 / 730 500 / 500 330 / 330 Output Total 125 / 125 750 / 750 Balance 605 / 605 -250 / -250 330 / 330 Intake: IV 100 / 100 100 / 100 100 / 100 Oral 630 / 630 400 / 400 230 / 230 Output: Void Amount 125 / 125 750 / 750 Other: Meal Dinner Breakfast Percent of Meal Consumed 90 75% Feeding Ability Independent Independent Stool Size Small Moderate Stool Color Brown Brown Stool Consistency Loose Soft Formed # Voids 1 # Bowel Movements 1 1 # Emeses 0 Weight 99 lb Additional comments: Constitutional; Afebrile, cooperative, alert, not in distress. Eyes- No icterus, , No periorbital swelling Ears- Ext ear normal, hearing normal to conversation. Neck- Midline trachea, supple Respiratory system: Air Entry equal on both sides, No crackles or wheezing, no rhonchi. CVS- Rate rhythm regular, S1,S2 heard, no gallop, no rub. Abdomen- Soft nontender abdomen, no organomegaly, no tenderness, no guarding or rigidity, EXTRUSION TECHNICIAN- AOOx3, moving all extremities, no gross focal deficit noted. Medical - DS: Data Labs on day of discharge: Labs from last 24 hours 08/23/17 08/23/17 04:05 04:05 WBC 4.2 L RBC 3.76 L Hgb 10.6 L Hct 31.8 L MCV 84.7 MCH 28.1 MCHC 33.2 RDW 15.6 H Plt Count 320 MPV 7.3 L Gran % 49.7 Lymph % (Auto) 31.7 Emmons % (Auto) 14.6 H Eos % (Auto) 3.4 Baso % (Auto) 0.6 Gran # 2.1 Lymph # (Auto) 1.3 L Emmons # (Auto) 0.6 Eos # (Auto) 0.1 Baso # (Auto) 0 Sodium 131 L Potassium 3.9 Chloride 95 L Carbon Dioxide 24 Anion Gap 12.0 BUN 7 L Creatinine 0.6 GFR Calculation 85 Glucose 81 Uric Acid 3.3 Calcium 8.4 L Phosphorus 3.3 Magnesium 1.5 L Total Bilirubin 0.3 Direct Bilirubin < 0.2 GGT 34 AST 29 ALT 19 Alkaline Phosphatase 63 Lactate Dehydrogenase 275 H Total Protein 6.1 Albumin 2.9 L Globulin 3.2 Albumin/Globulin Ratio 0.9 L Triglycerides 73 Preliminary micro results at discharge 08/22/17 09:38 Blood Culture - Preliminary Blood 08/22/17 09:48 Blood Culture - Preliminary Blood Medical - DS: A/P - Patient/Caregiver Discharge Instructions Activity: increase activity as tolerated Diet: Cardiac (Fluid restriction at 1500 cc over 24 hours) Additional Instructions: Please follow-up with PCP in 1 week Please follow strict fluid restriction of 1500 mL for 24 hours. Her dose of salt tablets have changed from 1 tablet 2 times a day to 1 tablet 3 times a day. Please make sure your PCP orders blood test in a week's time to make sure your sodium level is where it needs to be. Please take antibiotics for another 5 days. Go to the emergency room if worsening condition, fever chills shortness of breath or any other acute concerning symptom. - Follow up Plan Follow up with: Travis Johnson MD [Primary Care Provider] - Disposition: Home, Self-Care Prognosis: Fair Rehab Potential: Fair I certify that the patient requires SNF services: No Overall status at discharge: patient is progressing back to baseline Medical - DS: Qual - VTE Deep Vein Thrombosis/Pulmonary Embolism Present on Admission: No
[2017-08-26 08:38] LABS: Aldosterone Serum 12 ng/dL
== END 2017-08-23 13:50 | disposition home or self-care (01) | DRG 194 ==
LOC: MEDSUR 11:01 → ED 11:01 → OBSVTOIN 15:07 → MEDSUR 15:09
PROVIDERS: ADMIT Specialist; ATTEND Internal Medicine

== ENCOUNTER 2020-03-18 13:37 | Inpatient (IN) ==
[2020-03-18] MEDS ORDERED: IPRATROPIUM/ALBUTEROL 3 ML AMPUL.NEB NEB ONE (14:22)
[2020-03-18] MEDS ORDERED: methylPREDNISolone SOD SUCC 125 MG/2 ML VIAL IV ONE (14:22)
[2020-03-18] MEDS ORDERED: 0.9 % SODIUM CHLORIDE 500 ML IV ONE (14:22)
--- NOTE | 2020-03-18 14:42 | Emergency Department Note ---
SOB HPI General Chief Complaint: Shortness of Breath/Dyspnea Stated Complaint: shortness of breath Time Seen by Provider: 03/18/20 13:50 Source: patient and EMS Mode of arrival: wheelchair Limitations: no limitations History of Present Illness HPI Narrative: Narrative: 84-year-old female with known COPD and multiple other chronic comorbidities is brought in by EMS for shortness of breath that started this morning. She is not on oxygen at home but is now currently requiring at least 2 L to keep her saturations above 90%. She is unable to talk even without getting short of breath. Normally she walks with a walker but at this time she cannot even walk across the room-significant weakness. Denies fever cough congestion. She reports having been tested for Covid 4 times so far the last time 2 weeks ago. All of these have been negative. She used her 's inhaler this morning but it did not help She notes that she has chronic belly chest and back pain-these are unchanged-she has known Crohn's disease as well as a pacemaker and carotid artery stent Related Data Home Medications Medication Instructions Recorded Confirmed multivitamin 1 tab PO QDAY tab 11/02/14 03/09/20 bacitracin 1 dose INTRANASAL BID 08/21/17 03/09/20 saliva stimulant comb. no.7 1 dose PO QHS 08/21/17 03/09/20 artificial tears(hypromellose) 3.5 gm OD QHS 01/23/18 03/09/20 aspirin 81 mg tablet,delayed 81 mg PO QHS 01/23/18 03/09/20 release sour pathak extract 1,000 mg PO DAILY 01/23/18 03/09/20 bisoprolol fumarate 5 mg tablet 10 mg PO QDAY tab 04/01/18 03/09/20 calcium carbonate 200 mg calcium 200 mg PO DAILY 08/04/18 03/09/20 (500 mg) chewable tablet lisinopril 2.5 mg tablet 2.5 mg PO QDAY 10/01/18 03/09/20 nortriptyline 10 mg capsule 10 mg PO HS 04/03/19 03/09/20 albuterol sulfate 90 mcg INHALATION Q6H PRN 10/01/19 03/09/20 sodium chloride 1,500 mg PO TID 10/01/19 03/09/20 fluticasone 250 mcg-salmeterol 50 1 inh INHALATION Q12H 12/22/19 03/09/20 mcg/dose blistr powdr for inhalation Previous Rx's Medication Instructions Recorded hyoscyamine sulfate 0.125 mg 0.125 mg PO Q6H PRN #60 tab 09/05/16 sublingual tablet hydrocodone 5 mg-acetaminophen 325 0.5 tab PO Q8H PRN #20 tab 01/22/17 mg tablet celecoxib 200 mg capsule 200 mg PO QDAY PRN #180 cap 05/30/18 magnesium oxide 400 mg PO BID #60 tab 12/27/18 C-Ket 5%-G 6%-D 3% See Rx Instructions .ROUTE 05/22/19 .COMPLEX #1 tube denosumab 60 mg/mL subcutaneous 60 mg SUB-Q B7OEDHLE #1 ml 05/27/19 syringe tiotropium bromide 18 mcg capsule 1 cap INHALATION QDAY #90 puff 06/03/19 with inhalation device pilocarpine HCl 5 mg tablet 5 mg PO TID #270 tab 11/13/19 hydroxychloroquine 200 mg tablet See Rx Instructions PO BID #180 tab 12/14/19 ipratropium 0.5 mg-albuterol 3 mg 3 ml INHALATION Q6H PRN #180 ml 01/07/20 (2.5 mg base)/3 mL nebulization soln methocarbamol [Robaxin-750] 750 mg PO Q6-8HP PRN #20 tab 01/09/20 potassium chloride 10 mEq 10 meq PO QDAY #90 tab 01/26/20 tablet,extended release atorvastatin 20 mg tablet 20 mg PO QDAY #90 tab 03/08/20 budesonide 3 mg 3 mg PO TID 90 Days #270 each 03/15/20 capsule,delayed,extended release lansoprazole 30 mg capsule,delayed 30 mg PO BID #180 cap 03/15/20 release Allergies Allergy/AdvReac Type Severity Reaction Status Date / Time azathioprine [From Imuran] Allergy Severe Anaphylaxis Verified 03/15/20 07:49 azithromycin [From Zithromax] Allergy Severe Anaphylaxis Verified 03/15/20 07:49 clarithromycin Allergy Intermediate Palpitation Verified 03/15/20 07:49 s clindamycin AdvReac Intermediate Diarrhea Verified 03/15/20 07:49 adhesive tape AdvReac Mild Rash Verified 03/15/20 07:49 codeine AdvReac Mild Vomiting Verified 03/15/20 07:49 Erythromycin Base AdvReac Mild Vomiting Verified 03/15/20 07:49 morphine AdvReac Mild Vomiting Verified 03/15/20 07:49 doxycycline AdvReac Vomiting Verified 03/15/20 07:49 Review of Systems ROS ROS Narrative: Narrative: All systems ED: reviewed and negative except as stated. [facility] Narrative Patient History Narrative: Narrative: Medical/Surgical/Family History All Active Problems (Updated 03/18/20 @ 16:26 by Adolfo Collins MD) Abdominal pain (Acute) Constipation (Acute) Acute exacerbation of chronic obstructive pulmonary disease (COPD) (Acute) Hypomagnesemia (Acute) Acute hyperkalemia (Acute) Respiratory failure (Acute) Pedal edema (Chronic) COPD (chronic obstructive pulmonary disease) (Acute) Acute URI (Acute) Myofascial pain (Chronic) Cellulitis (Acute) Cellulitis (Acute) Spasm of thoracic back muscle (Acute) Cellulitis of finger of left hand (Acute) Cellulitis of finger (Acute) Dyspnea on exertion (Acute) Cellulitis of right hand (Acute) Nausea & vomiting (Acute) Abnormal lung sounds (Acute) Pacemaker (Chronic) Cerebrovascular disease (Chronic) Acute coronary syndrome (Chronic) Chronic obstructive pulmonary disease (Chronic) Hypertension, essential (Chronic) SIADH (syndrome of inappropriate ADH production) (Chronic) Hyponatremia (Chronic) Falls (Chronic) Cellulitis (Acute) Scoliosis of lumbar spine (Chronic) Hyperlipidemia (Chronic) Crohn's disease (Chronic) Gastroparesis (Chronic) Encounter for long-term current use of high risk medication (Chronic) Sicca syndrome (Chronic) Pulmonary fibrosis, postinflammatory (Chronic) Bronchiectasis (Chronic) Chronic thoracic back pain (Chronic) DDD (degenerative disc disease), thoracic (Chronic) Compression fracture of body of thoracic vertebra (Chronic) Osteopenia (Chronic) H/O calcium pyrophosphate deposition disease (CPPD) (Chronic) Osteoarthritis (Chronic) Inflammatory arthropathy (Chronic) Gastroesophageal reflux (Chronic) Back pain (Chronic) Melanoma of skin (Chronic) Sjogren's syndrome (Chronic) Polyarthropathy or polyarthritis of multiple sites (Chronic) Analgesic use (Chronic) Hernia, hiatal (Chronic) Enthesopathy of hip region (Chronic) Early satiety (Chronic) Medical History Abdominal bloating (Resolved) Abdominal pain (Resolved) Acute coronary syndrome (Chronic) Acute thoracic back pain (Resolved) Anal benign neoplasm (Resolved) 11/18/2014 - Dr. Ramon Anal fissure (Resolved) stricture Analgesic use (Chronic) Ankle pain (Resolved 07/22/14) Right ankle Arthritis (Resolved) Back pain (Chronic) Bladder infection, acute (Resolved) Bronchiectasis (Chronic) Bronchitis (Resolved) Cellulitis (Resolved) Cellulitis (Acute) Cellulitis (Acute) Cellulitis (Acute) Cerebrovascular disease (Chronic) Chronic obstructive pulmonary disease (Chronic) Chronic thoracic back pain (Chronic) Compression fracture of body of thoracic vertebra (Chronic) COPD (chronic obstructive pulmonary disease) with acute bronchitis (Resolved) Crohn's disease (Chronic) CVA (cerebral vascular accident) (Chronic) states "in December 2017 had a mini stroke" DDD (degenerative disc disease), thoracic (Chronic) Dehydration (Resolved) Diarrhea (Resolved) Diverticulosis of colon (Inactive) 11/18/2014 - Dr. Ramon Early satiety (Chronic) Encounter for long-term current use of high risk medication (Chronic) Enthesopathy of hip region (Chronic) Fall (Resolved) Falls (Chronic) Fracture of finger, closed (Resolved) R thumb Fracture of pubic ramus (Resolved) Gastroenteritis (Resolved) Gastroesophageal reflux (Chronic) Gastroparesis (Chronic) Gout (Resolved) pseudogout Gouty arthropathy (Resolved) H/O calcium pyrophosphate deposition disease (CPPD) (Chronic) Hernia, hiatal (Chronic) History of urinary tract infection (Resolved) Hyperlipidemia (Chronic) Hypertension, essential (Chronic) Hyponatremia (Inactive) Hyponatremia (Chronic) Hyponatremia with decreased serum osmolality (Inactive) see SIADH Inflammatory arthropathy (Chronic) Melanoma of skin (Chronic) Minor head injury (Resolved) Myofascial pain (Chronic) Nausea (Resolved) Nausea & vomiting (Resolved) Nausea and vomiting (Resolved) No problem, feared complaint unfounded (Resolved) Osteoarthritis (Chronic) Osteopenia (Chronic) Pacemaker (Chronic) and AICD present. 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 Sicca syndrome (Chronic) Sjogren's syndrome (Chronic) Slurring of speech (Resolved) Transient cerebral ischemia (Resolved) Urinary tract infection (Resolved) UTI (urinary tract infection) (Resolved) Ventricular fibrillation (Resolved ~2010) ques torsades de pointes Weakness (Resolved) Weight loss (Inactive) Weight loss, unintentional (Inactive) Word finding difficulty (Resolved) Wound cellulitis (Resolved) Wound infection (Resolved) Surgical History History of appendectomy (Resolved) History of automatic internal cardiac defibrillator (AICD) (Resolved) History of biliary stent insertion (Resolved) History of cholecystectomy (Resolved) History of colectomy (Resolved) History of colonoscopy (Resolved 02/22/15) Dr. Ramon - HP History of esophagogastroduodenoscopy (Resolved 09/17/14) Dr. Ramon - Gastritis History of hysterectomy (Resolved) History of intestinal surgery (Resolved) partial bowel resection History of knee replacement (Resolved) bilateral History of rectal surgery (Resolved) fissure repair History of sigmoidoscopy (Resolved 07/27/15) 02/22/15 Dr. Ramon History of total hip arthroplasty (Resolved) R Status post cardiac pacemaker procedure (Chronic) recently replacement of pacer and icd per patient. Status post laparoscopic-assisted sigmoidectomy (Chronic 10/11/15) with Kenalog injection Family History Sister Alzheimer's disease Unknown Asthma Essential hypertension Malignant neoplasm Brother Atherosclerosis of coronary artery Father , at 69y Atherosclerosis of coronary artery Mother , at 90y of old age Atherosclerosis of coronary artery Osteoarthritis Social History Smoking Status: Former smoker Alcohol Intake Frequency: former alcohol drinker Substance Use: does not use Exam Narrative Narrative: Narrative: Cachectic female requiring oxygen at this time via nasal cannula. Her oxygen saturations dropped into the mid 80s with talking despite being on oxygen. Normocephalic atraumatic. Conjunctive are clear sclerae white nonicteric. No nasal discharge but audible congestion noted. Oropharynx is pink and moist. Neck is supple without lymphadenopathy or thyromegaly. Heart is regular rate and rhythm no murmur appreciated. Pacemaker seen in the upper left chest wall. Lungs with coarse sounds bilaterally however I do not hear any true rales. Is difficult for me to hear end expiratory wheezing because of her breathing pattern and habitus. Abdomen is soft diffusely tender. No guarding. No pedal edema General Limitations: no limitations Course Vital Signs Vital signs: Vital Signs Temperature 97.0 F 03/18/20 13:41 Pulse Rate 63 03/18/20 13:41 Respiratory Rate 22 03/18/20 13:41 Blood Pressure 109/74 03/18/20 13:41 Pulse Oximetry (%) 89 L 03/18/20 13:41 Temperature 97.0 F 03/18/20 13:41 Pulse Rate 64 03/18/20 15:32 Respiratory Rate 24 H 03/18/20 15:32 Blood Pressure 135/95 03/18/20 15:32 Pulse Oximetry (%) 99 03/18/20 15:32 MDM MDM Narrative Medical decision making narrative: Narrative: Significantly worsening dyspnea now likely secondary to COPD exacerbation plus or minus infection. She will require hospitalization secondary to the oxygen needs as I am unable to do that over the weekend. We will go ahead and work her up with chest x-ray and laboratory. Review her chart. Good start breathing treatment and Solu-Medrol at this time. I will hold off on starting antibiotics until there is some evidence of infection. We will screen her for Covid. Small amount of fluids as its not clear if there is any evidence of CHF-clinically she is a little bit on the dry side. Chest x-ray shows no acute change. ABG shows elevated pH decrease PCO2 and okay PO2 on room air. However whenever she talks her oxygen saturations dropped into the 80s she is requiring 2 L of oxygen via nasal cannula. She is mildly hy ponatremic but this is somewhat chronic as well as mildly hyperkalemic. She did get a breathing treatment so this is likely to change. BNP is a little bit elevated from a couple days ago so we will give her some furosemide which will help with the potassium as well. Noted chronic troponin elevation. She is markedly hypomagnesemic-we will give her some mag rider. Because of her allergies we will give her some Levaquin for the COPD exacerbation. Discussed the case with Dr. Betancourt our hospitalist, he agreed to accept the patient. He would like her to start on BiPAP so I will order that. Covid is still pending Lab Data Lab results reviewed: Yes I reviewed the patient's lab results. Result diagrams: 03/18/20 14:54 03/18/20 14:53 Labs: Lab Results 03/18/20 03/18/20 03/18/20 Range/Units 14:52 14:53 14:53 WBC (4.5-11.0) K/mcL RBC (4.00-5.20) M/mcL Hgb (12.0-15.0) g/dL Hct (36.0-48.0) % MCV (80.0-100.0) fL MCH (26.0-34.0) pg MCHC (31.0-36.0) g/dL RDW (11.5-14.5) % Plt Count (140-440) K/mcL MPV (7.4-10.4) fL Neut % (Auto) (38.0-78.0) % Lymph % (Auto) (15.0-49.0) % Turner % (Auto) (1.0-12.0) % Eos % (Auto) (0.0-7.0) % Baso % (Auto) (0.0-2.0) % Lymph # (Auto) (1.50-4.80) K/mcL Turner # (Auto) (0.10-0.90) K/mcL Eos # (Auto) (0.00-0.70) K/mcL Baso # (Auto) (0.00-0.20) K/mcL Absolute Neutrophils (1.80-8.00) K/mcL VBG Lactic Acid 2.3 H (0.5-2.0) mmol/L Sodium 126 L (133-145) mmol/L Potassium 5.2 H (3.3-5.1) mmol/L Chloride 94 L (96-108) mmol/L Carbon Dioxide 18 L (22-30) mmol/L Anion Gap 14.0 (8.0-16.0) BUN 18 (8-23) mg/dL Creatinine 1.0 (0.6-1.1) mg/dL GFR Calculation 52 Glucose 145 H (70-105) mg/dL Calcium 8.3 L (8.6-10.4) mg/dL Magnesium 1.1 L (1.6-2.5) mg/dL Total Bilirubin 0.6 (0.1-1.0) mg/dL AST 90 H (<32) U/L ALT 75 H (<40) U/L Alkaline Phosphatase 83 (39-117) U/L NT-Pro-B Natriuret Pep 43058.0 H (<450.0) pg/mL Total Protein 6.0 (5.9-8.4) gm/dL Albumin 3.4 (3.2-5.2) gm/dL Globulin 2.6 (2.2-3.7) gm/dL Albumin/Globulin Ratio 1.3 (1.0-2.3) Lipase 34 (7-60) U/L Procalcitonin 0.16 H (<0.10) ng/mL 03/18/20 Range/Units 14:54 WBC 6.1 (4.5-11.0) K/mcL RBC 3.85 L (4.00-5.20) M/mcL Hgb 10.6 L (12.0-15.0) g/dL Hct 32.6 L (36.0-48.0) % MCV 84.7 (80.0-100.0) fL MCH 27.5 (26.0-34.0) pg MCHC 32.5 (31.0-36.0) g/dL RDW 15.5 H (11.5-14.5) % Plt Count 195 (140-440) K/mcL MPV 10.4 (7.4-10.4) fL Neut % (Auto) 85.6 H (38.0-78.0) % Lymph % (Auto) 7.5 L (15.0-49.0) % Turner % (Auto) 6.9 (1.0-12.0) % Eos % (Auto) 0 (0.0-7.0) % Baso % (Auto) 0 (0.0-2.0) % Lymph # (Auto) 0.46 L (1.50-4.80) K/mcL Turner # (Auto) 0.42 (0.10-0.90) K/mcL Eos # (Auto) 0 (0.00-0.70) K/mcL Baso # (Auto) 0 (0.00-0.20) K/mcL Absolute Neutrophils 5.22 (1.80-8.00) K/mcL VBG Lactic Acid (0.5-2.0) mmol/L Sodium (133-145) mmol/L Potassium (3.3-5.1) mmol/L Chloride (96-108) mmol/L Carbon Dioxide (22-30) mmol/L Anion Gap (8.0-16.0) BUN (8-23) mg/dL Creatinine (0.6-1.1) mg/dL GFR Calculation Glucose (70-105) mg/dL Calcium (8.6-10.4) mg/dL Magnesium (1.6-2.5) mg/dL Total Bilirubin (0.1-1.0) mg/dL AST (<32) U/L ALT (<40) U/L Alkaline Phosphatase (39-117) U/L NT-Pro-B Natriuret Pep (<450.0) pg/mL Total Protein (5.9-8.4) gm/dL Albumin (3.2-5.2) gm/dL Globulin (2.2-3.7) gm/dL Albumin/Globulin Ratio (1.0-2.3) Lipase (7-60) U/L Procalcitonin (<0.10) ng/mL Radiology Data Radiology results reviewed: Yes I reviewed the patient's radiology results. Radiology results narrative: Chest x-ray does not look substantially different from previous. Noted pacemaker defibrillator Reviewed chest abdomen pelvis CT scan from 3 days ago which showed a new lung nodule Discharge Plan Patient/Caregiver Discharge Instructions Pt seen by ADMITTING COORDINATOR/PA only: No Clinical Impression: Acute exacerbation of chronic obstructive pulmonary disease (COPD), Hypomagnesemia, Acute hyperkalemia Respiratory failure Qualifiers: Chronicity: acute Respiratory failure complication: hypoxia Qualified Code(s): J96.01 - Acute respiratory failure with hypoxia Patient Disposition: Xfer As Inpt ([facility]) Condition: Fair Follow up with: Travis Johnson MD [Primary Care Provider] - Prescriptions: No Action celecoxib [Celebrex] 200 mg capsule 200 mg PO QDAY PRN (Reason: pain) Qty: 180 RF: 0 C-Ket 5%-G 6%-D 3% See Rx Instructions .ROUTE .COMPLEX Qty: 1 RF: 0 Spiriva with HandiHaler 18 mcg capsule, w/inhalation device 1 cap INHALATION QDAY Qty: 90 RF: 1 pilocarpine HCl [Salagen (pilocarpine)] 5 mg tablet 5 mg PO TID Qty: 270 RF: 3 hydroxychloroquine [Plaquenil] 200 mg tablet See Rx Instructions PO BID Qty: 180 RF: 3 ipratropium-albuterol 0.5 mg-3 mg(2.5 mg base)/3 mL solution for nebulization 3 ml INHALATION Q6H PRN (Reason: shortness of breath or wheezing) Qty: 180 RF: 2 potassium chloride 10 mEq tablet extended release 10 meq PO QDAY Qty: 90 RF: 1 atorvastatin [Lipitor] 20 mg tablet 20 mg PO QDAY Qty: 90 RF: 1 lansoprazole [Prevacid] 30 mg capsule,delayed release(DR/EC) 30 mg PO BID Qty: 180 RF: 1 budesonide [Entocort EC] 3 mg capsule,delayed,extend.release 3 mg PO TID 90 Days Qty: 270 RF: 1 multivitamin tablet 1 tab PO QDAY RF: 0 hyoscyamine sulfate [Levsin/SL] 0.125 mg tablet, sublingual 0.125 mg PO Q6H PRN (Reason: dyspepsia) Qty: 60 RF: 0 hydrocodone-acetaminophen 0 tablet 0.5 tab PO Q8H PRN (Reason: Pain) Qty: 20 RF: 0 aspirin 81 mg tablet,delayed release (DR/EC) 81 mg PO QHS RF: 0 lisinopril 2.5 mg tablet 2.5 mg PO QDAY RF: 0 Prolia 60 mg/mL syringe 60 mg SUB-Q [id number] Qty: 1 RF: 0 fluticasone propion-salmeterol [Advair Diskus] 250-50 mcg/dose blister with device 1 inh INHALATION Q12H RF: 0 nortriptyline 10 mg capsule 10 mg PO HS RF: 0 bisoprolol fumarate 5 mg tablet 10 mg PO QDAY RF: 0 bacitracin 1 DOSE ointment 1 dose INTRANASAL BID RF: 0 saliva stimulant comb. no.7 1 EACH gel 1 dose PO QHS RF: 0 artificial tears(hypromellose) 10 GM gel 3.5 gm OD QHS RF: 0 sour pathak extract 1,000 MG capsule 1,000 mg PO DAILY RF: 0 calcium carbonate 200 mg calcium (500 mg) tablet,chewable 200 mg PO DAILY RF: 0 magnesium oxide 400 MG tablet 400 mg PO BID Qty: 60 RF: 3 sodium chloride 1 GM tablet 1,500 mg PO TID RF: 0 albuterol sulfate 6.7 GM HFA aerosol inhaler 90 mcg INHALATION Q6H PRN (Reason: Shortness Of Breath) RF: 0 methocarbamol [Robaxin-750] 750 mg tablet 750 mg PO Q6-8HP PRN (Reason: muscle spasms) Qty: 20 RF: 0
--- NOTE | 2020-03-18 14:48 | XRay Report ---
INDICATION: SOB TECHNIQUE: AP portable upright chest x-ray COMPARISON: Multiple previous chest x-rays including examinations dated 12/22/2019, 09/29/2019, 04/27/2019. Comparison made with previous chest CT scan dated 03/15/[address] scan dated [id number] FINDINGS:Left transvenous pacemaker leads in appropriate positions Lungs:There is a focal mass at the left lung base. Unchanged from previous chest x-rays and is identified on abdominal CT scan dated 06/06/2017. Chest CT scan demonstrated multiple nodules. These are not well visualized on plain film study. No new parenchymal infiltrate or consolidation. Heart, vascular:No significant cardiomegaly. Pulmonary vascularity is normal. No pulmonary edema or pulmonary congestion Mediastinum, [place]:No mediastinal widening. No hilar mass Pleura:No pleural fluid. No pleural-based mass or calcification Skeletal:Negative. IMPRESSION: 1. Focal left basilar mass density is stable since 06/06/2017 2. No new abnormality. No acute infiltrate Interpreted and Authenticated by: Kailash Tan 03/18/20
[2020-03-18 15:47] LABS: Basophils # (Auto) 0 K/mcL (0.00-0.20); Basophils % (Auto) 0 % (0.0-2.0); Eosinophils # (Auto) 0 K/mcL (0.00-0.70); Eosinophils % (Auto) 0 % (0.0-7.0); Hematocrit 32.6 % (36.0-48.0); Hemoglobin 10.6 g/dL (12.0-15.0); Lymphocytes # (Auto) 0.46 K/mcL (1.50-4.80); Lymphocytes % (Auto) 7.5 % (15.0-49.0); Mean Cell Volume 84.7 fL (80.0-100.0); Mean Corpuscular HGB Conc 32.5 g/dL (31.0-36.0); Mean Platelet Volume 10.4 fL (7.4-10.4); Monocytes # (Auto) 0.42 K/mcL (0.10-0.90); Monocytes % (Auto) 6.9 % (1.0-12.0); Neutrophils % (Auto) 85.6 % (38.0-78.0); Platelet Count 195 K/mcL (140-440); RBC 3.85 M/mcL (4.00-5.20); Red Cell Distribution Width 15.5 % (11.5-14.5); WBC 6.1 K/mcL (4.5-11.0)
[2020-03-18 16:07] LABS: ALT/SGPT 75 U/L (<40); AST/SGOT 90 U/L (<32); Albumin 3.4 gm/dL (3.2-5.2); Albumin/Globulin Ratio 1.3 (1.0-2.3); Alkaline Phosphatase 83 U/L (39-117); Bilirubin,Total 0.6 mg/dL (0.1-1.0); Blood Urea Nitrogen 18 mg/dL (8-23); Calcium 8.3 mg/dL (8.6-10.4); Carbon Dioxide 18 mmol/L (22-30); Chloride 94 mmol/L (96-108); Globulin 2.6 gm/dL (2.2-3.7); Glomerular Filtration Rate 52; Glucose 145 mg/dL (70-105)
[2020-03-18] MEDS ORDERED: FUROSEMIDE 20 MG/2 ML VIAL IV ONE (16:21)
[2020-03-18] MEDS ORDERED: MAGNESIUM SULFATE 2 GM/50 ML BAG IV ONE (16:23)
[2020-03-18] MEDS ORDERED: LEVOFLOXACIN 500 MG/100 ML BAG IV ONE (16:33)
[2020-03-18 16:58] LABS: Appearance,Urine CLEAR (Clear); Bacteria,Urine MANY /hpf (0); Bilirubin,Urine Negative (Negative); Color,Urine YELLOW; Culture Indicated,Urine No; Glucose,Urine (UA) Negative (Negative); Ketones,Urine Negative (Negative); Leukocyte Esterase,Urine 75 /ug (Negative); Mucus,Urine FEW /hpf; Nitrate,Urine POS (Negative); Protein,Urine 30 mg/dL (Negative); Specific Gravity,Urine 1.015 (1.000-1.035); Urine Blood Negative (Negative); Urine Hyaline Cast 19 /lph (0-2); Urine RBC 0 /hpf (0-1); Urine Squamous Epithelial Cell 7 /hpf (0-4); Urine WBC 8 /hpf (0-4); Urobilinogen,Urine Negative
--- NOTE | 2020-03-18 17:00 | Internal Med History&Physical ---
HPI History of Present Illness Patient information: Note initiated : 03/18/20 at 4:53 pm Service Date, if different from initiated Date: [] Patient: Maribeth Berrios a 84 y/o F admitted on for shortness of breath. Chief Complaint: Shortness of breath History of present illness: Ms. Berrios is a 84 year old F with a history of COPD/CAD and prior cardiac arrest/pacemaker defibrillator/GERD/Crohn's disease who was in her baseline state of health and lives with her . Patient noted gradually increasing productive cough along with shortness of breath over the last few days. This morning she was barely able to walk or function and any amount of effort could cause extreme shortness of breath. She denies associated fever. She endorses that using her regular inhalers did not help. She presents to the ER for evaluation Initial work-up was consistent with severe COPD exacerbation. ABG 7.56/23 actively hyperventilating. Patient was going to need his oxygen. Chest imaging subtle infiltrate. Patient was started on bronchodilators/steroids. She was started on IV magnesium replacement for low magnesium Subsequently hospitalist service was consulted At the time of my evaluation patient is alert and oriented. She feels better and able to talk in near full sentences. Her sats often dropping down to low 80s during conversation. She endorses history as above. Denies recent medication changes. She endorses lower extremity swelling. Endorses to complex prior medical history including pacemaker defibrillator/history of Crohn's/pulmonary fibrosis. She denies diarrhea, dysuria, bloody stool, bloody urine, headache myalgias or photophobia Review of systems 10 point review system was performed and is negative except for ones cussed above PFSH PFSH All Active Problems (Updated 03/18/20 @ 16:26 by Adolfo Collins MD) Abdominal pain (Acute) Constipation (Acute) Acute exacerbation of chronic obstructive pulmonary disease (COPD) (Acute) Hypomagnesemia (Acute) Acute hyperkalemia (Acute) Respiratory failure (Acute) Pedal edema (Chronic) COPD (chronic obstructive pulmonary disease) (Acute) Acute URI (Acute) Myofascial pain (Chronic) Cellulitis (Acute) Cellulitis (Acute) Spasm of thoracic back muscle (Acute) Cellulitis of finger of left hand (Acute) Cellulitis of finger (Acute) Dyspnea on exertion (Acute) Cellulitis of right hand (Acute) Nausea & vomiting (Acute) Abnormal lung sounds (Acute) Pacemaker (Chronic) Cerebrovascular disease (Chronic) Acute coronary syndrome (Chronic) Chronic obstructive pulmonary disease (Chronic) Hypertension, essential (Chronic) SIADH (syndrome of inappropriate ADH production) (Chronic) Hyponatremia (Chronic) Falls (Chronic) Cellulitis (Acute) Scoliosis of lumbar spine (Chronic) Hyperlipidemia (Chronic) Crohn's disease (Chronic) Gastroparesis (Chronic) Encounter for long-term current use of high risk medication (Chronic) Sicca syndrome (Chronic) Pulmonary fibrosis, postinflammatory (Chronic) Bronchiectasis (Chronic) Chronic thoracic back pain (Chronic) DDD (degenerative disc disease), thoracic (Chronic) Compression fracture of body of thoracic vertebra (Chronic) Osteopenia (Chronic) H/O calcium pyrophosphate deposition disease (CPPD) (Chronic) Osteoarthritis (Chronic) Inflammatory arthropathy (Chronic) Gastroesophageal reflux (Chronic) Back pain (Chronic) Melanoma of skin (Chronic) Sjogren's syndrome (Chronic) Polyarthropathy or polyarthritis of multiple sites (Chronic) Analgesic use (Chronic) Hernia, hiatal (Chronic) Enthesopathy of hip region (Chronic) Early satiety (Chronic) Medical History Abdominal bloating (Resolved) Abdominal pain (Resolved) Acute coronary syndrome (Chronic) Acute thoracic back pain (Resolved) Anal benign neoplasm (Resolved) 11/18/2014 - Dr. Ramon Anal fissure (Resolved) stricture Analgesic use (Chronic) Ankle pain (Resolved 07/22/14) Right ankle Arthritis (Resolved) Back pain (Chronic) Bladder infection, acute (Resolved) Bronchiectasis (Chronic) Bronchitis (Resolved) Cellulitis (Resolved) Cellulitis (Acute) Cellulitis (Acute) Cellulitis (Acute) Cerebrovascular disease (Chronic) Chronic obstructive pulmonary disease (Chronic) Chronic thoracic back pain (Chronic) Compression fracture of body of thoracic vertebra (Chronic) COPD (chronic obstructive pulmonary disease) with acute bronchitis (Resolved) Crohn's disease (Chronic) CVA (cerebral vascular accident) (Chronic) states "in December 2017 had a mini stroke" DDD (degenerative disc disease), thoracic (Chronic) Dehydration (Resolved) Diarrhea (Resolved) Diverticulosis of colon (Inactive) 11/18/2014 - Dr. Tristen Early satiety (Chronic) Encounter for long-term current use of high risk medication (Chronic) Enthesopathy of hip region (Chronic) Fall (Resolved) Falls (Chronic) Fracture of finger, closed (Resolved) R thumb Fracture of pubic ramus (Resolved) Gastroenteritis (Resolved) Gastroesophageal reflux (Chronic) Gastroparesis (Chronic) Gout (Resolved) pseudogout Gouty arthropathy (Resolved) H/O calcium pyrophosphate deposition disease (CPPD) (Chronic) Hernia, hiatal (Chronic) History of urinary tract infection (Resolved) Hyperlipidemia (Chronic) Hypertension, essential (Chronic) Hyponatremia (Inactive) Hyponatremia (Chronic) Hyponatremia with decreased serum osmolality (Inactive) see SIADH Inflammatory arthropathy (Chronic) Melanoma of skin (Chronic) Minor head injury (Resolved) Myofascial pain (Chronic) Nausea (Resolved) Nausea & vomiting (Resolved) Nausea and vomiting (Resolved) No problem, feared complaint unfounded (Resolved) Osteoarthritis (Chronic) Osteopenia (Chronic) Pacemaker (Chronic) and AICD present. 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 Sicca syndrome (Chronic) Sjogren's syndrome (Chronic) Slurring of speech (Resolved) Transient cerebral ischemia (Resolved) Urinary tract infection (Resolved) UTI (urinary tract infection) (Resolved) Ventricular fibrillation (Resolved ~2010) ques torsades de pointes Weakness (Resolved) Weight loss (Inactive) Weight loss, unintentional (Inactive) Word finding difficulty (Resolved) Wound cellulitis (Resolved) Wound infection (Resolved) Surgical History History of appendectomy (Resolved) History of automatic internal cardiac defibrillator (AICD) (Resolved) History of biliary stent insertion (Resolved) History of cholecystectomy (Resolved) History of colectomy (Resolved) History of colonoscopy (Resolved 02/22/15) Dr. Ramon - [place] History of esophagogastroduodenoscopy (Resolved 09/17/14) Dr. Ramon - Gastritis History of hysterectomy (Resolved) History of intestinal surgery (Resolved) partial bowel resection History of knee replacement (Resolved) bilateral History of rectal surgery (Resolved) fissure repair History of sigmoidoscopy (Resolved 07/27/15) 02/22/15 Dr. Ramon History of total hip arthroplasty (Resolved) R Status post cardiac pacemaker procedure (Chronic) recently replacement of pacer and icd per patient. Status post laparoscopic-assisted sigmoidectomy (Chronic 10/11/15) with Kenalog injection Family History Sister Alzheimer's disease Unknown Asthma Essential hypertension Malignant neoplasm Brother Atherosclerosis of coronary artery Father , at 69y Atherosclerosis of coronary artery Mother , at 90y of old age Atherosclerosis of coronary artery Osteoarthritis Social History marital status: education level: high school occupational status: retired other: 4 children/12 gc smoking status: Former smoker quit date: 05/20/92 pack-years: 40 alcohol intake frequency: former alcohol drinker substance use type: does not use MEDS/ALLERGIES Home Medications and Allergies Home Medications Medication Instructions Recorded Confirmed Type multivitamin 1 tab PO QDAY tab 11/02/14 03/18/20 History hyoscyamine sulfate 0.125 mg 0.125 mg PO Q6H PRN #60 tab 09/05/16 03/18/20 Rx sublingual tablet hydrocodone 5 mg-acetaminophen 325 0.5 tab PO Q8H PRN #20 tab 01/22/17 03/18/20 Rx mg tablet bacitracin 1 dose INTRANASAL BID 08/21/17 03/18/20 History saliva stimulant comb. no.7 1 dose PO QHS 08/21/17 03/18/20 History artificial tears(hypromellose) 3.5 gm OD QHS 01/23/18 03/18/20 History aspirin 81 mg tablet,delayed 81 mg PO QHS 01/23/18 03/09/20 History release sour pathak extract 1,000 mg PO DAILY 01/23/18 03/18/20 History bisoprolol fumarate 5 mg tablet 10 mg PO QDAY tab 04/01/18 03/18/20 History celecoxib 200 mg capsule 200 mg PO QDAY PRN #180 cap 05/30/18 03/18/20 Rx calcium carbonate 200 mg calcium 200 mg PO DAILY 08/04/18 03/18/20 History (500 mg) chewable tablet lisinopril 2.5 mg tablet 2.5 mg PO QDAY 10/01/18 03/18/20 History magnesium oxide 400 mg PO BID #60 tab 12/27/18 03/18/20 Rx nortriptyline 10 mg capsule 10 mg PO HS 04/03/19 03/18/20 History C-Ket 5%-G 6%-D 3% See Rx Instructions .ROUTE 05/22/19 03/18/20 Rx .COMPLEX #1 tube denosumab 60 mg/mL subcutaneous 60 mg SUB-Q [id number] #1 ml 05/27/19 03/18/20 Rx syringe tiotropium bromide 18 mcg capsule 1 cap INHALATION QDAY #90 puff 06/03/19 03/18/20 Rx with inhalation device albuterol sulfate 90 mcg INHALATION Q6H PRN 10/01/19 03/18/20 History sodium chloride 1,500 mg PO TID 10/01/19 03/18/20 History pilocarpine HCl 5 mg tablet 5 mg PO TID #270 tab 11/13/19 03/18/20 Rx hydroxychloroquine 200 mg tablet See Rx Instructions PO BID #180 tab 12/14/19 03/18/20 Rx fluticasone 250 mcg-salmeterol 50 1 inh INHALATION Q12H 12/22/19 03/18/20 History mcg/dose blistr powdr for inhalation ipratropium 0.5 mg-albuterol 3 mg 3 ml INHALATION Q6H PRN #180 ml 01/07/20 03/18/20 Rx (2.5 mg base)/3 mL nebulization soln potassium chloride 10 mEq 10 meq PO QDAY #90 tab 01/26/20 03/18/20 Rx tablet,extended release atorvastatin 20 mg tablet 20 mg PO QDAY #90 tab 03/08/20 03/18/20 Rx budesonide 3 mg 3 mg PO TID 90 Days #270 each 03/15/20 03/18/20 Rx capsule,delayed,extended release lansoprazole 30 mg capsule,delayed 30 mg PO BID #180 cap 03/15/20 03/18/20 Rx release furosemide 20 mg PO TID 03/18/20 03/18/20 History prednisone 10 mg PO BID 03/18/20 03/18/20 History Allergies Allergy/AdvReac Type Severity Reaction Status Date / Time azathioprine [From Imuran] Allergy Severe Anaphylaxis Verified 03/15/20 07:49 azithromycin [From Zithromax] Allergy Severe Anaphylaxis Verified 03/15/20 07:49 clarithromycin Allergy Intermediate Palpitation Verified 03/15/20 07:49 s clindamycin AdvReac Intermediate Diarrhea Verified 03/15/20 07:49 adhesive tape AdvReac Mild Rash Verified 03/15/20 07:49 codeine AdvReac Mild Vomiting Verified 03/15/20 07:49 Erythromycin Base AdvReac Mild Vomiting Verified 03/15/20 07:49 morphine AdvReac Mild Vomiting Verified 03/15/20 07:49 doxycycline AdvReac Vomiting Verified 03/15/20 07:49 EXAM Constitutional Vitals: Temp Pulse Resp BP Pulse Ox 97.0 F 108 H 22 112/97 100 03/18/20 13:41 03/18/20 16:31 03/18/20 16:31 03/18/20 16:31 03/18/20 16:31 Alert but anxious Head normocephalic Oral cavity moist No ear nose discharge Eye movement symmetrical Neck supple no lymphadenopathy S1-S2 paced rhythm. Defibrillator left anterior chest Labored breathing unable to talk in full sentences Nondistended nontender abdomen Lower extremity bilateral stasis changes, lymphedema but no joint swelling Skin no suspicious lesion Psych anxious but alert cooperative Neuro normal higher function DATA Data Completed and Pending Labs: Labs from last 24 hours 03/18/20 03/18/20 03/18/20 16:07 14:54 14:53 WBC 6.1 RBC 3.85 L Hgb 10.6 L Hct 32.6 L MCV 84.7 MCH 27.5 MCHC 32.5 RDW 15.5 H Plt Count 195 MPV 10.4 Neut % (Auto) 85.6 H Lymph % (Auto) 7.5 L Cook % (Auto) 6.9 Eos % (Auto) 0 Baso % (Auto) 0 Lymph # (Auto) 0.46 L Cook # (Auto) 0.42 Eos # (Auto) 0 Baso # (Auto) 0 Absolute Neutrophils 5.22 VBG Lactic Acid Sodium Potassium Chloride Carbon Dioxide Anion Gap BUN Creatinine GFR Calculation Glucose Calcium Magnesium Total Bilirubin AST ALT Alkaline Phosphatase Troponin T NT-Pro-B Natriuret Pep Total Protein Albumin Globulin Albumin/Globulin Ratio Lipase Procalcitonin 0.16 H Urine Color Pending Urine Appearance Pending Urine pH Pending Ur Specific Start Pending Urine Protein Pending Urine Glucose (UA) Pending Urine Ketones Pending Urine Occult Blood Pending Urine Nitrate Pending Urine Bilirubin Pending Urine Urobilinogen Pending Ur Leukocyte Esterase Pending 03/18/20 03/18/20 03/18/20 14:53 14:53 14:52 WBC RBC Hgb Hct MCV MCH MCHC RDW Plt Count MPV Neut % (Auto) Lymph % (Auto) Cook % (Auto) Eos % (Auto) Baso % (Auto) Lymph # (Auto) Cook # (Auto) Eos # (Auto) Baso # (Auto) Absolute Neutrophils VBG Lactic Acid 2.3 H Sodium 126 L Potassium 5.2 H Chloride 94 L Carbon Dioxide 18 L Anion Gap 14.0 BUN 18 Creatinine 1.0 GFR Calculation 52 Glucose 145 H Calcium 8.3 L Magnesium 1.1 L Total Bilirubin 0.6 AST 90 H ALT 75 H Alkaline Phosphatase 83 Troponin T 0.32 H* NT-Pro-B Natriuret Pep 45913.0 H Total Protein 6.0 Albumin 3.4 Globulin 2.6 Albumin/Globulin Ratio 1.3 Lipase 34 Procalcitonin Urine Color Urine Appearance Urine pH Ur Specific Start Urine Protein Urine Glucose (UA) Urine Ketones Urine Occult Blood Urine Nitrate Urine Bilirubin Urine Urobilinogen Ur Leukocyte Esterase A/P Narrative A/P Narrative: * Acute exacerbation of COPD. Start bronchodilators/nasal steroids/pulmonary toilet/supplemental oxygen/antibiotic coverage * Acute decompensated heart failure-noninvasive ventilation if indicated/diuresis * Acute hypoxic respiratory failure secondary to above continue supplemental oxygen * Acute cystitis -start antibiotic coverage. * History of CAD continue home medications including BB/HENRY inhibitor/aspirin/statin * Hypertension continue HENRY inhibitor/beta-luciano * Low magnesium 1.1 start replacement * GERD continue PPI * History of Sjogren's syndrome/sicca syndrome on hydroxychloroquine/denosumab * Full code * Prophylax Heparin Plan * Inpatient admission * COPD management per guidelines * Pre-existing medical condition management as above * Noninvasive ventilation if indicated * Replace magnesium Time Spent With Patient Time: Total time spent is greater than 50% in coordination of care (as documented) at patient's floor/unit and/or counseling patient:
[2020-03-18] MEDS ORDERED: BISACODYL 10 MG SUPP.RECT PR PRN (17:46)
[2020-03-18] MEDS ORDERED: ONDANSETRON 4 MG ODT TABLET SL PRN (17:46)
[2020-03-18] MEDS ORDERED: ALBUTEROL SULFATE 200 PUFF INHALER INH PRN (17:46)
[2020-03-18] MEDS ORDERED: POLYETHYLENE GLYCOL 3350 17 GM PACKET PO PRN (17:46)
[2020-03-18] MEDS ORDERED: ACETAMINOPHEN 650 MG/65 ML BOTTLE IV PRN (17:46)
[2020-03-18] MEDS ORDERED: [UNRECOGNIZED DRUG - OTHER] SCH (17:46)
[2020-03-18] MEDS ORDERED: LEVOFLOXACIN 750 MG/150 ML BAG IV SCH (17:46)
[2020-03-18] MEDS ORDERED: HYOSCYAMINE SULFATE 0.125 MG TABLET PO PRN ×2 (17:46→19:00)
[2020-03-18] MEDS ORDERED: POTASSIUM CHLORIDE 40 MEQ in DEXTROSE 5% IN WATER 500 ML IV PRN (17:46)
[2020-03-18] MEDS ORDERED: ONDANSETRON 4 MG/2 ML VIAL IV PRN (17:46)
[2020-03-18] MEDS ORDERED: MELATONIN 3 MG TABLET PO PRN (17:46)
[2020-03-18] MEDS ORDERED: CELECOXIB 200 MG CAPSULE PO PRN ×2 (17:46→19:00)
[2020-03-18] MEDS ORDERED: IPRATROPIUM/ALBUTEROL 3 ML AMPUL.NEB NEB PRN ×2 (17:46→19:00)
[2020-03-18] MEDS ORDERED: MAGNESIUM SULFATE 2 GM/50 ML BAG IV PRN (17:46)
[2020-03-18] MEDS ORDERED: CALCIUM CHLORIDE 1,000 MG/10 ML SYRINGE IV PRN (17:46)
[2020-03-18] MEDS ORDERED: DENOSUMAB 60 MG/ML SYRINGE SQ SCH (17:46)
[2020-03-18] MEDS ORDERED: HYDROcodone/APAP 5/325MG TABLET PO PRN ×2 (17:46→19:00)
[2020-03-18] MEDS: IPRATROPIUM 2.5 ML AMPUL.NEB NEB SCH ×2 (19:00→22:57)
[2020-03-18] MEDS ORDERED: LEVOFLOXACIN 250 MG/50 ML BAG IV ONE (19:00)
[2020-03-18] MEDS: FLUTICASONE/SALMETEROL 250/50 INHALER #14 INH SCH (19:43)
[2020-03-18] MEDS: BACITRACIN TOPICAL OINT 15 GM TUBE TOPICAL SCH (20:14)
[2020-03-18] MEDS: DOCUSATE SODIUM 100 MG CAPSULE PO SCH (20:14)
[2020-03-18] MEDS: MAGNESIUM OXIDE 400 MG TABLET PO SCH (20:15)
[2020-03-18] MEDS: HYDROXYCHLOROQUINE 200 MG TABLET PO SCH (20:15)
[2020-03-18] MEDS: SODIUM CHLORIDE 1 GM TABLET PO SCH (20:15)
[2020-03-18] MEDS: PILOCARPINE 5 MG PO SCH (20:16)
[2020-03-18] MEDS: HEPARIN 5,000 UNIT/ML VIAL SQ SCH (20:16)
[2020-03-18] MEDS: PANTOPRAZOLE 40 MG TABLET PO SCH (20:20)
[2020-03-18] MEDS: methylPREDNISolone SOD SUCC 125 MG/2 ML VIAL IV SCH (20:21)
[2020-03-18] MEDS: 0.9 % SODIUM CHLORIDE 10 ML SYRINGE IV SCH (20:21)
[2020-03-18] MEDS: ACETAMINOPHEN 325 MG TABLET PO PRN ×2 (20:35→21:46)
[2020-03-18] MEDS ORDERED: HYDROXYCHLOROQUINE 200 MG TABLET PO SCH (21:00)
[2020-03-18] MEDS ORDERED: NORTRIPTYLINE 10 MG CAPSULE PO SCH (21:00)
[2020-03-18] MEDS ORDERED: CARBOXYMETHYLCELLULOSE SODIUM 1 EACH DROPER.GEL OD SCH (21:00)
[2020-03-18] MEDS ORDERED: LACTOPEROXI/GLUC OXID/POT THIO 1 EACH GEL..EA. TOPICAL SCH (21:00)
[2020-03-18] MEDS ORDERED: SENNOSIDES/DOCUSATE SODIUM 1 TAB TABLET PO SCH (21:00)
[2020-03-18] MEDS: BUDESONIDE 3 MG CAP.XL.24H PO SCH (21:08)
[2020-03-19] MEDS: IPRATROPIUM 2.5 ML AMPUL.NEB NEB SCH ×6 (03:45→23:55)
[2020-03-19] MEDS: FLUTICASONE/SALMETEROL 250/50 INHALER #14 INH SCH ×2 (05:19→17:45)
[2020-03-19] MEDS: 0.9 % SODIUM CHLORIDE 10 ML SYRINGE IV SCH ×3 (05:42→21:20)
[2020-03-19 07:37] LABS: ALT/SGPT 115 U/L (<40); AST/SGOT 131 U/L (<32); Albumin 3.4 gm/dL (3.2-5.2); Albumin/Globulin Ratio 1.4 (1.0-2.3); Alkaline Phosphatase 92 U/L (39-117); Bilirubin,Direct 0.4 mg/dL (<0.3); Bilirubin,Total 0.7 mg/dL (0.1-1.0); Blood Urea Nitrogen 19 mg/dL (8-23); Calcium 8.1 mg/dL (8.6-10.4); Carbon Dioxide 16 mmol/L (22-30); Chloride 94 mmol/L (96-108); Globulin 2.5 gm/dL (2.2-3.7); Glomerular Filtration Rate 46; Glucose 140 mg/dL (70-105); Lactate Dehydrogenase 675 U/L (135-225); Triglycerides 72 mg/dL (<150); Uric Acid 6.6 mg/dL (2.5-8.0)
[2020-03-19] MEDS: PANTOPRAZOLE 40 MG TABLET PO SCH ×2 (08:06→17:17)
[2020-03-19 08:07] LABS: Anisocytosis FEW (None Seen); Band Neutrophils % 1 % (0-10); Hematocrit 35.4 % (36.0-48.0); Hemoglobin 10.9 g/dL (12.0-15.0); Lymphocytes % 8 % (15-49); Mean Cell Volume 89.2 fL (80.0-100.0); Mean Corpuscular HGB Conc 30.8 g/dL (31.0-36.0); Mean Platelet Volume 10.8 fL (7.4-10.4); Monocytes % (Manual) 5 % (1-12); Platelet Count 179 K/mcL (140-440); Platelet Estimate NORMAL (Normal); RBC 3.97 M/mcL (4.00-5.20); RBC Morphology ABNORMAL (Normal); Red Cell Distribution Width 15.4 % (11.5-14.5); Segmented Neutrophils % 86 % (38-78); WBC 5.5 K/mcL (4.5-11.0)
[2020-03-19] MEDS ORDERED: TIOTROPIUM BROMIDE 18 MCG INHALANT INH SCH (09:00)
[2020-03-19] MEDS ORDERED: ATORVASTATIN 20 MG TABLET PO SCH (09:00)
[2020-03-19] MEDS ORDERED: LISINOPRIL 2.5 MG TABLET PO SCH (09:00)
[2020-03-19] MEDS ORDERED: BISOPROLOL 5 MG TABLET PO SCH (09:00)
[2020-03-19] MEDS ORDERED: CALCIUM CARBONATE 500 MG TAB.CHEW PO SCH (09:00)
[2020-03-19] MEDS ORDERED: MULTIVIT,THER IRON,CA,FA & MIN 1 TABLET PO SCH ×2 (09:00)
[2020-03-19] MEDS ORDERED: SOUR CHERRY EXTRACT 1000 MG PO SCH (09:00)
[2020-03-19] MEDS ORDERED: POTASSIUM CHLORIDE 10 MEQ TABLET PO SCH (09:00)
[2020-03-19] MEDS: methylPREDNISolone SOD SUCC 125 MG/2 ML VIAL IV SCH (09:45)
[2020-03-19] MEDS: HEPARIN 5,000 UNIT/ML VIAL SQ SCH ×2 (09:46→21:16)
[2020-03-19] MEDS: SODIUM CHLORIDE 1 GM TABLET PO SCH ×3 (09:46→21:19)
[2020-03-19] MEDS: HYDROXYCHLOROQUINE 200 MG TABLET PO SCH ×2 (09:47→21:17)
[2020-03-19] MEDS: BACITRACIN TOPICAL OINT 15 GM TUBE TOPICAL SCH ×2 (09:47→21:15)
[2020-03-19] MEDS: MAGNESIUM OXIDE 400 MG TABLET PO SCH ×2 (09:47→21:16)
[2020-03-19] MEDS: PILOCARPINE 5 MG PO SCH (09:48)
[2020-03-19] MEDS: DOCUSATE SODIUM 100 MG CAPSULE PO SCH ×2 (09:48→21:16)
[2020-03-19] MEDS: BUDESONIDE 3 MG CAP.XL.24H PO SCH ×4 (09:48→21:16)
--- NOTE | 2020-03-19 12:06 | Internal Med Progress Note ---
SUBJECTIVE Subjective Patient information: Note initiated : 03/19/20 at 12:01 pm Service Date, if different from initiated Date: [] Patient: Maribeth Berrios a 84 y/o F admitted on 03/18/20 for shortness of breath. Chief Complaint: History of present illness: Ms. Berrios is a 84 year old F with a history of COPD/CAD and prior cardiac arrest/pacemaker defibrillator/GERD/Crohn's disease who was in her baseline state of health and lives with her . Patient noted gradually increasing productive cough along with shortness of breath over the last few days. This morning she was barely able to walk or function and any amount of effort could cause extreme shortness of breath. She denies associated fever. She endorses that using her regular inhalers did not help. She presents to the ER for evaluation Initial work-up was consistent with severe COPD exacerbation. ABG 7. actively hyperventilating. Patient was going to need his oxygen. Chest imaging subtle infiltrate. Patient was started on bronchodilators/steroids. She was started on IV magnesium replacement for low magnesium Subsequently hospitalist service was consulted At the time of my evaluation patient is alert and oriented. She feels better and able to talk in near full sentences. Her sats often dropping down to low 80s during conversation. She endorses history as above. Denies recent medication changes. She endorses lower extremity swelling. Endorses to complex prior medical history including pacemaker defibrillator/history of Crohn's/pulmonary fibrosis. -patient clinically improving. No overnight events. Sats improved. Continue bronchodilators and steroid. Did not need noninvasive ventilation. Transfer to medical floor. Transition to oral steroids. No overnight fever chills or concerns per staff. Constitutional Vitals: Vital Signs Temp Pulse Resp BP Pulse Ox 97.3 F 64 23 H 121/85 100 03/19/20 07:27 03/19/20 11:29 03/19/20 11:29 03/19/20 11:00 03/19/20 11:00 Period Temp Pulse Resp BP Sys/Courtney Pulse Ox Last 24 Hr 97.0 F-97.6 F 25-133 14-35 98-160/56-126 81-100 Intake and Output 03/18/20 03/19/20 03/19/20 21:59 05:59 13:59 Intake Total 972 150 Output Total 650 100 100 Balance 322 50 -100 Weight 40.914 kg 40.914 kg Patient Weight 03/20/20 04:59 Weight 40.914 kg nonlabored breathing No anxiety On 2 L oxygen Intake & Output: Intake & Output 03/18/20 03/19/20 03/19/20 21:59 05:59 13:59 Intake Total 972 150 Output Total 650 100 100 Balance 322 50 -100 Weight 40.914 kg 40.914 kg Intake: IV 612 50 Sodium Chloride 0.9% 500 ml @ 500 Wide Open IV .Q0M ONE Rx#: [id number] Oral 360 100 Output: Void Amount 650 100 100 Other: Meal Dinner Percent of Meal Consumed 50% Feeding Ability Independent Urine Appearance Clear Clear Clear Urine Color Bright Yellow Bright Yellow Bright Yellow Urine Odor Normal Normal Normal OBJ DATA Labs CBC & Chem 7: 03/19/20 05:08 03/19/20 05:08 Labs: Abnormal Lab Results 03/19/20 03/19/20 03/18/20 05:08 05:08 16:07 RBC 3.97 L Hgb 10.9 L Hct 35.4 L MCHC 30.8 L RDW 15.4 H MPV 10.8 H Neut % (Auto) Lymph % (Auto) Lymph # (Auto) Seg Neutrophils % 86 H Lymphocytes % 8 L RBC Morphology Abnormal A Anisocytosis Few A VBG Lactic Acid Sodium 127 L Potassium Chloride 94 L Carbon Dioxide 16 L Anion Gap 17.0 H Glucose 140 H Calcium 8.1 L Magnesium Direct Bilirubin 0.4 H GGT 206 H AST 131 H ALT 115 H Lactate Dehydrogenase 675 H Troponin T NT-Pro-B Natriuret Pep Procalcitonin Urine Protein 30 A Urine Nitrate Pos A Ur Leukocyte Esterase 75 A Urine WBC 8 H Ur Squamous Epith Cells 7 H Urine Bacteria Many A Hyaline Casts 19 H Urine Mucus Few A 03/18/20 03/18/20 03/18/20 14:54 14:53 14:53 RBC 3.85 L Hgb 10.6 L Hct 32.6 L MCHC RDW 15.5 H MPV Neut % (Auto) 85.6 H Lymph % (Auto) 7.5 L Lymph # (Auto) 0.46 L Seg Neutrophils % Lymphocytes % RBC Morphology Anisocytosis VBG Lactic Acid Sodium Potassium Chloride Carbon Dioxide Anion Gap Glucose Calcium Magnesium Direct Bilirubin GGT AST ALT Lactate Dehydrogenase Troponin T 0.32 H* NT-Pro-B Natriuret Pep Procalcitonin 0.16 H Urine Protein Urine Nitrate Ur Leukocyte Esterase Urine WBC Ur Squamous Epith Cells Urine Bacteria Hyaline Casts Urine Mucus 03/18/20 03/18/20 14:53 14:52 RBC Hgb Hct MCHC RDW MPV Neut % (Auto) Lymph % (Auto) Lymph # (Auto) Seg Neutrophils % Lymphocytes % RBC Morphology Anisocytosis VBG Lactic Acid 2.3 H Sodium 126 L Potassium 5.2 H Chloride 94 L Carbon Dioxide 18 L Anion Gap Glucose 145 H Calcium 8.3 L Magnesium 1.1 L Direct Bilirubin GGT AST 90 H ALT 75 H Lactate Dehydrogenase Troponin T NT-Pro-B Natriuret Pep 44325.0 H Procalcitonin Urine Protein Urine Nitrate Ur Leukocyte Esterase Urine WBC Ur Squamous Epith Cells Urine Bacteria Hyaline Casts Urine Mucus Meds: Medications Acetaminophen (Tylenol) 650 mg PO Q4-6HP PRN; Protocol PRN Reason: Per Pain Protocol/Fever > 101 Last Admin: 03/18/20 21:46 Dose: 325 mg Documented by: Hydrocodone Bitart/Acetaminophen ([place] 5/325mg) 0.5 tab PO Q8HP PRN; Protocol PRN Reason: Pain Last Admin: 03/19/20 10:45 Dose: 0.5 tab Documented by: Albuterol Sulfate (Ventolin) 1 puff INH Q6HP PRN PRN Reason: Shortness Of Breath Albuterol/Ipratropium (Duoneb) 3 ml NEB Q6HP PRN PRN Reason: shortness of breath or wheezing Artificial Tears (Refresh Celluvisc) 1 each OD QHS [facility] Last Admin: 03/18/20 20:15 Dose: 1 each Documented by: Atorvastatin Calcium (Lipitor) 20 mg PO QDAY [facility] Last Admin: 03/19/20 09:46 Dose: 20 mg Documented by: Bacitracin (Bacitracin Topical Oint) 1 dose TOPICAL BID [facility] Last Admin: 03/19/20 09:47 Dose: 1 dose Documented by: Bisacodyl (Dulcolax) 10 mg NE Q2-3DAYS PRN PRN Reason: Constipation Bisoprolol Fumarate (Zebeta) 10 mg PO QDAY [facility] Last Admin: 03/19/20 09:46 Dose: 10 mg Documented by: Budesonide (Entecort) 3 mg PO TID [facility] Last Admin: 03/19/20 09:48 Dose: Not Given Documented by: Calcium Carbonate/Glycine (Tums) 200 mg PO DAILY [facility] Last Admin: 03/19/20 09:46 Dose: 200 mg Documented by: Celecoxib (Celebrex) 200 mg PO DAILYP PRN PRN Reason: pain Docusate Sodium (Colace) 100 mg PO BID [facility] Last Admin: 03/19/20 09:48 Dose: Not Given Documented by: Glucose Oxid/Lactoperoxid/Muramidas (Biotene) 1 each TOPICAL QHS [facility] Last Admin: 03/18/20 20:17 Dose: Not Given Documented by: Heparin Sodium (Porcine) (Heparin) 5,000 unit SQ Q12 [facility] Last Admin: 03/19/20 09:46 Dose: 5,000 unit Documented by: Hydroxychloroquine Sulfate (Plaquenil) 200 mg PO BID [facility] Last Admin: 03/19/20 09:47 Dose: 200 mg Documented by: Hyoscyamine (Levsin) 0.125 mg PO Q6HP PRN PRN Reason: dyspepsia Potassium Chloride 40 meq/ (Dextrose) 520 mls @ 130 mls/hr IV UD PRN PRN Reason: K+ = or < 3.5 Acetaminophen (Ofirmev) 650 mg in 65 mls @ 130 mls/hr IV Q6HP PRN; Protocol PRN Reason: Per Pain Protocol/Fever > 101 Magnesium Sulfate (Magnesium Sulfate) 2 gm in 50 mls @ 50 mls/hr IV UD PRN PRN Reason: MG = or < 1.7 Levofloxacin (Levaquin) 750 mg in 150 mls @ 100 mls/hr IV Q48H [facility]; Protocol Ipratropium [place] (Atrovent) 2.5 ml NEB Q4HRT [facility] Last Admin: 03/19/20 11:12 Dose: 2.5 ml Documented by: Iron Carb/Multivit/[place]/Folic Acid (Multivitamin W/Minerals) 1 tab PO DAILY [facility] Last Admin: 03/19/20 09:47 Dose: 1 tab Documented by: Iron Carb/Multivit/Imaging System Administrator/Folic Acid (Multivitamin W/Minerals) 1 tab PO DAILY [facility] Last Admin: 03/19/20 09:47 Dose: 1 tab Documented by: Lisinopril (Zestril) 2.5 mg PO QDAY [facility] Last Admin: 03/19/20 09:47 Dose: 2.5 mg Documented by: Magnesium Oxide (Magnesium Oxide) 400 mg PO BID [facility] Last Admin: 03/19/20 09:47 Dose: 400 mg Documented by: Melatonin (Melatonin 3mg Tablet) 3 mg PO HSP PRN PRN Reason: Insomnia Methylprednisolone Sodium Succinate (Solu-Medrol) 60 mg IV Q12 [facility] Last Admin: 03/19/20 09:45 Dose: 60 mg Documented by: Non-Formulary Medication (C-Ket 5%-G 6%-D 3%) 0 applic .ROUTE .COMPLEX [facility] Nortriptyline HCl (Pamelor) 10 mg PO HS [facility] Last Admin: 03/18/20 20:15 Dose: 10 mg Documented by: Ondansetron HCl (Zofran Odt) 4 mg SL Q4-6HP PRN; Protocol PRN Reason: Nausea And Vomiting Ondansetron HCl (Zofran) 4 mg IV Q4-6HP PRN; Protocol PRN Reason: Nausea And Vomiting Pantoprazole Sodium (Protonix) 40 mg PO BIDAC [facility] Last Admin: 03/19/20 08:06 Dose: 40 mg Documented by: Pilocarpine 5 Mg 1 dose PO TID [facility] Last Admin: 03/19/20 09:48 Dose: Not Given Documented by: Polyethylene Glycol (Miralax) 17 gm PO DAILYP PRN PRN Reason: Constipation Potassium Chloride (Kdur) 10 meq PO QDAY [facility] Last Admin: 03/19/20 09:47 Dose: 10 meq Documented by: Fluticasone/Salmeterol (Advair 250-50 Diskus) 1 puff INH Q12H [facility] Last Admin: 03/19/20 05:19 Dose: Not Given Documented by: Senna/Docusate Sodium (Senna Plus Tablet) 1 tab PO [facility] Last Admin: 03/18/20 20:13 Dose: Not Given Documented by: Sodium Chloride (Saline Flush) 10 ml IV Q8 [facility] Last Admin: 03/19/20 05:42 Dose: 10 ml Documented by: Sodium Chloride (Sodium Chloride) 1.5 gm PO TID [facility] Last Admin: 03/19/20 09:46 Dose: 1.5 gm Documented by: Tiotropium [place] (Spiriva) 36 mcg INH DAILY [facility] Last Admin: 03/19/20 09:49 Dose: Not Given Documented by: A/P Narrative A/P Narrative: * Acute exacerbation of COPD. Clinical improvement noted on bronchodilators/IV steroids/pulmonary toilet/supplemental oxygen, every 48 hour levofloxacin, * Acute hypoxic respiratory failure secondary to above -clinically improved. Transition to medical floor * Acute cystitis -continue IV levofloxacin * History of CAD continue home medications including BB/HENRY inhibitor/aspirin/statin * Hypertension stable on home dose HENRY inhibitor/beta-luciano * Low magnesium resolved with replacement * GERD continue PPI * History of Sjogren's syndrome/sicca syndrome on hydroxychloroquine/denosumab, home dose prednisone held as receiving IV steroids for COPD flare * Full code * Prophylax Heparin Plan * Inpatient admission * COPD management per guidelines * Pre-existing medical condition management as above * Noninvasive ventilation if indicated * Replace magnesium Time Spent With Patient Time: Total time spent is greater than 50% in coordination of care (as documented) at patient's floor/unit and/or counseling patient: QUALITY Stroke Symptom Onset Unknown: No VTE Deep Vein Thrombosis/Pulmonary Embolism Present on Admission: No
[2020-03-19] MEDS ORDERED: ALBUTEROL SULFATE 200 PUFF INHALER INH PRN (12:24)
[2020-03-19] MEDS ORDERED: ONDANSETRON 4 MG/2 ML VIAL IV PRN (12:24)
[2020-03-19] MEDS ORDERED: HYDROcodone/APAP 5/325MG TABLET PO PRN ×2 (12:24→20:05)
[2020-03-19] MEDS ORDERED: POTASSIUM CHLORIDE 40 MEQ in DEXTROSE 5% IN WATER 500 ML IV PRN (12:24)
[2020-03-19] MEDS ORDERED: ACETAMINOPHEN 650 MG/65 ML BOTTLE IV PRN (12:24)
[2020-03-19] MEDS ORDERED: BISACODYL 10 MG SUPP.RECT PR PRN (12:24)
[2020-03-19] MEDS ORDERED: MAGNESIUM SULFATE 2 GM/50 ML BAG IV PRN (12:24)
[2020-03-19] MEDS ORDERED: CELECOXIB 200 MG CAPSULE PO PRN (12:24)
[2020-03-19] MEDS ORDERED: MELATONIN 3 MG TABLET PO PRN (12:24)
[2020-03-19] MEDS ORDERED: POLYETHYLENE GLYCOL 3350 17 GM PACKET PO PRN (12:24)
[2020-03-19] MEDS ORDERED: HYOSCYAMINE SULFATE 0.125 MG TABLET PO PRN (12:24)
[2020-03-19] MEDS ORDERED: IPRATROPIUM/ALBUTEROL 3 ML AMPUL.NEB NEB PRN (12:24)
[2020-03-19] MEDS ORDERED: [UNRECOGNIZED DRUG - OTHER] TOPICAL PRN (12:45)
[2020-03-19] MEDS: ACETAMINOPHEN 325 MG TABLET PO PRN ×2 (15:41→21:20)
[2020-03-19] MEDS: FUROSEMIDE 20 MG TABLET PO SCH ×2 (16:16→21:16)
[2020-03-19] MEDS: PILOCARPINE 5 MG TABLET PO SCH ×2 (16:18→21:17)
[2020-03-19] MEDS ORDERED: LACTOPEROXI/GLUC OXID/POT THIO 1 EACH GEL..EA. TOPICAL SCH (21:00)
[2020-03-19] MEDS ORDERED: CARBOXYMETHYLCELLULOSE SODIUM 1 EACH DROPER.GEL OD SCH (21:00)
[2020-03-19] MEDS ORDERED: NORTRIPTYLINE 10 MG CAPSULE PO SCH (21:00)
[2020-03-19] MEDS ORDERED: SENNOSIDES/DOCUSATE SODIUM 1 TAB TABLET PO SCH (21:00)
[2020-03-19] MEDS: [UNRECOGNIZED DRUG - OTHER] TOPICAL SCH (21:17)
[2020-03-19] MEDS: ONDANSETRON 4 MG ODT TABLET SL PRN (21:30)
[2020-03-20] MEDS: ONDANSETRON 4 MG ODT TABLET SL PRN (04:18)
[2020-03-20] MEDS: IPRATROPIUM 2.5 ML AMPUL.NEB NEB SCH ×4 (04:18→15:29)
[2020-03-20] MEDS: FLUTICASONE/SALMETEROL 250/50 INHALER #14 INH SCH (05:35)
[2020-03-20] MEDS: 0.9 % SODIUM CHLORIDE 10 ML SYRINGE IV SCH (05:38)
[2020-03-20] MEDS: PANTOPRAZOLE 40 MG TABLET PO SCH (07:03)
[2020-03-20] MEDS: ACETAMINOPHEN 325 MG TABLET PO PRN (07:27)
[2020-03-20] MEDS ORDERED: POTASSIUM CHLORIDE 10 MEQ TABLET PO SCH (08:00)
[2020-03-20] MEDS ORDERED: predniSONE 20 MG TABLET PO SCH ×2 (08:00)
--- NOTE | 2020-03-20 08:08 | XRay Report ---
INDICATION: Interval Change TECHNIQUE: AP portable upright chest x-ray COMPARISON: Previous chest x-rays dated 03/18/2020, 12/22/2019 FINDINGS: Left transvenous pacemaker leads are unchanged Lungs:Left basilar parenchymal density is again identified. This is stable since CT scan dated 01/23/2018. CT scan demonstrated an 8 mm right upper lobe nodule. This is not identified on present chest x-ray. No new pulmonary parenchymal infiltrate or mass. Lungs otherwise negative. Heart, vascular:No significant cardiomegaly. Pulmonary vascularity is normal. No pulmonary edema or pulmonary congestion Mediastinum, [place]:No mediastinal widening. No hilar mass Pleura:No pleural fluid. No pleural-based mass or calcification Skeletal:Negative. IMPRESSION: 1. Left basilar parenchymal density is stable. 8 mm right upper lobe nodule identified on CT scan is not identified on the present plain film examination 2. No acute abnormality Interpreted and Authenticated by: Kailash Tan 03/20/20
[2020-03-20] MEDS ORDERED: MAGNESIUM CITRATE 300 ML ORAL.SOL PO ONE ×2 (08:51→10:32)
[2020-03-20] MEDS ORDERED: TIOTROPIUM BROMIDE 18 MCG INHALANT INH SCH (09:00)
[2020-03-20] MEDS ORDERED: MULTIVIT,THER IRON,CA,FA & MIN 1 TABLET PO SCH ×2 (09:00)
[2020-03-20] MEDS ORDERED: BISOPROLOL 5 MG TABLET PO SCH (09:00)
[2020-03-20] MEDS ORDERED: CALCIUM CARBONATE 500 MG TAB.CHEW PO SCH (09:00)
[2020-03-20] MEDS ORDERED: LISINOPRIL 2.5 MG TABLET PO SCH (09:00)
[2020-03-20] MEDS ORDERED: ATORVASTATIN 20 MG TABLET PO SCH (09:00)
[2020-03-20] MEDS ORDERED: BACITRACIN TOPICAL OINT 15 GM TUBE TOPICAL SCH ×2 (09:00→21:00)
[2020-03-20] MEDS ORDERED: LEVOFLOXACIN 750 MG/150 ML BAG IV SCH ×2 (09:00)
--- NOTE | 2020-03-20 09:15 | Internal Med Progress Note ---
SUBJECTIVE Subjective Patient information: Note initiated : 03/20/20 at 9:12 am Service Date, if different from initiated Date: [] Patient: Maribeth Berrios a 84 y/o F admitted on 03/18/20 for shortness of breath. Chief Complaint: Interval history: History of present illness: Ms. Berrios is a 84 year old F with a history of COPD/CAD and prior cardiac arrest/pacemaker defibrillator/GERD/Crohn's disease who was in her baseline state of health and lives with her . Patient noted gradually increasing productive cough along with shortness of breath over the last few days. This morning she was barely able to walk or function and any amount of effort could cause extreme shortness of breath. She denies associated fever. She endorses that using her regular inhalers did not help. She presents to the ER for evaluation Initial work-up was consistent with severe COPD exacerbation. ABG 7.56/23 actively hyperventilating. Patient was going to need his oxygen. Chest imaging subtle infiltrate. Patient was started on bronchodilators/steroids. She was started on IV magnesium replacement for low magnesium Subsequently hospitalist service was consulted At the time of my evaluation patient is alert and oriented. She feels better a nd able to talk in near full sentences. Her sats often dropping down to low 80s during conversation. She endorses history as above. Denies recent medication changes. She endorses lower extremity swelling. Endorses to complex prior medical history including pacemaker defibrillator/history of Crohn's/pulmonary fibrosis. 03/19-patient clinically improving. No overnight events. Sats improved. Continue bronchodilators and steroid. Did not need noninvasive ventilation. Transfer to medical floor. Transition to oral steroids. No overnight fever chills or concerns per staff. 03/20-patient complains of spells of panic attacks, also complains of constipation/abdominal discomfort. CT abdomen on no intra-abdominal process. Feels constipated. Started on bowel protocol. Continue the rapy/nutrition support. She is due for sigmoidoscopy on the for stricture Constitutional Vitals: Vital Signs Temp Pulse Resp BP Pulse Ox 97.4 F 80 18 117/86 97 03/20/20 04:00 03/20/20 07:16 03/20/20 07:16 03/20/20 04:00 03/20/20 04:00 Period Temp Pulse Resp BP Sys/Courtney Pulse Ox Last 24 Hr 97.0 F-97.8 F 25-144 18-26 84-121/57-87 80-100 Intake and Output 03/19/20 03/20/20 03/20/20 22:59 05:59 13:59 Intake Total Output Total Balance Weight very anxious Minimally labored breathing Thin and frail individual No lymphedema Intake & Output: Intake & Output 03/19/20 03/20/20 03/20/20 22:59 05:59 13:59 Intake Total Output Total Balance Weight Intake: Oral Output: Urine Catheter Amount Void Amount Other: Meal Percent of Meal Consumed Feeding Ability Urine Appearance Straight Urine Color Straight # Voids # Bowel Movements OBJ DATA Labs CBC & Chem 7: 03/19/20 05:08 03/19/20 05:08 Labs: Abnormal Lab Results 03/19/20 03/19/20 03/18/20 05:08 05:08 16:07 RBC 3.97 L Hgb 10.9 L Hct 35.4 L MCHC 30.8 L RDW 15.4 H MPV 10.8 H Neut % (Auto) Lymph % (Auto) Lymph # (Auto) Seg Neutrophils % 86 H Lymphocytes % 8 L RBC Morphology Abnormal A Anisocytosis Few A VBG Lactic Acid Sodium 127 L Potassium Chloride 94 L Carbon Dioxide 16 L Anion Gap 17.0 H Glucose 140 H Calcium 8.1 L Magnesium Direct Bilirubin 0.4 H GGT 206 H AST 131 H ALT 115 H Lactate Dehydrogenase 675 H Troponin T NT-Pro-B Natriuret Pep Procalcitonin Urine Protein 30 A Urine Nitrate Pos A Ur Leukocyte Esterase 75 A Urine WBC 8 H Ur Squamous Epith Cells 7 H Urine Bacteria Many A Hyaline Casts 19 H Urine Mucus Few A 03/18/20 03/18/20 03/18/20 14:54 14:53 14:53 RBC 3.85 L Hgb 10.6 L Hct 32.6 L MCHC RDW 15.5 H MPV Neut % (Auto) 85.6 H Lymph % (Auto) 7.5 L Lymph # (Auto) 0.46 L Seg Neutrophils % Lymphocytes % RBC Morphology Anisocytosis VBG Lactic Acid Sodium Potassium Chloride Carbon Dioxide Anion Gap Glucose Calcium Magnesium Direct Bilirubin GGT AST ALT Lactate Dehydrogenase Troponin T 0.32 H* NT-Pro-B Natriuret Pep Procalcitonin 0.16 H Urine Protein Urine Nitrate Ur Leukocyte Esterase Urine WBC Ur Squamous Epith Cells Urine Bacteria Hyaline Casts Urine Mucus 03/18/20 03/18/20 14:53 14:52 RBC Hgb Hct MCHC RDW MPV Neut % (Auto) Lymph % (Auto) Lymph # (Auto) Seg Neutrophils % Lymphocytes % RBC Morphology Anisocytosis VBG Lactic Acid 2.3 H Sodium 126 L Potassium 5.2 H Chloride 94 L Carbon Dioxide 18 L Anion Gap Glucose 145 H Calcium 8.3 L Magnesium 1.1 L Direct Bilirubin GGT AST 90 H ALT 75 H Lactate Dehydrogenase Troponin T NT-Pro-B Natriuret Pep 10681.0 H Procalcitonin Urine Protein Urine Nitrate Ur Leukocyte Esterase Urine WBC Ur Squamous Epith Cells Urine Bacteria Hyaline Casts Urine Mucus Meds: Medications Acetaminophen (Tylenol) 650 mg PO Q4-6HP PRN; Protocol PRN Reason: Per Pain Protocol/Fever > 101 Last Admin: 03/20/20 07:27 Dose: 650 mg Documented by: Hydrocodone Bitart/Acetaminophen ([place] 5/325mg) 0.5 tab PO Q4HP PRN; Protocol PRN Reason: Per Pain Protocol Last Admin: 03/19/20 23:50 Dose: 0.5 tab Documented by: Albuterol Sulfate (Ventolin) 1 puff INH Q6HP PRN PRN Reason: Shortness Of Breath Albuterol/Ipratropium (Duoneb) 3 ml NEB Q6HP PRN PRN Reason: shortness of breath or wheezing Artificial Tears (Refresh Celluvisc) 1 each OD QHS [facility] Last Admin: 03/19/20 21:18 Dose: 1 each Documented by: Atorvastatin Calcium (Lipitor) 20 mg PO QDAY [facility] Bacitracin (Bacitracin Topical Oint) 1 dose TOPICAL BID [facility] Last Admin: 03/19/20 21:15 Dose: 1 dose Documented by: Bisacodyl (Dulcolax) 10 mg PA Q2-3DAYS PRN PRN Reason: Constipation Bisoprolol Fumarate (Zebeta) 10 mg PO QDAY [facility] Budesonide (Entecort) 3 mg PO TID [facility] Last Admin: 03/19/20 21:16 Dose: 3 mg Documented by: Calcium Carbonate/Glycine (Tums) 200 mg PO DAILY [facility] Celecoxib (Celebrex) 200 mg PO DAILYP PRN PRN Reason: pain Docusate Sodium (Colace) 100 mg PO BID [facility] Last Admin: 03/19/20 21:16 Dose: Not Given Documented by: Furosemide (Lasix) 20 mg PO TID [facility] Last Admin: 03/19/20 21:16 Dose: 20 mg Documented by: Glucose Oxid/Lactoperoxid/Muramidas (Biotene) 1 each TOPICAL QHS [facility] Last Admin: 03/19/20 21:15 Dose: 1 each Documented by: Heparin Sodium (Porcine) (Heparin) 5,000 unit SQ Q12 [facility] Last Admin: 03/19/20 21:16 Dose: 5,000 unit Documented by: Hydroxychloroquine Sulfate (Plaquenil) 200 mg PO BID [facility] Last Admin: 03/19/20 21:17 Dose: 200 mg Documented by: Hyoscyamine (Levsin) 0.125 mg PO Q6HP PRN PRN Reason: dyspepsia Acetaminophen (Ofirmev) 650 mg in 65 mls @ 130 mls/hr IV Q6HP PRN; Protocol PRN Reason: Per Pain Protocol/Fever > 101 Levofloxacin (Levaquin) 750 mg in 150 mls @ 100 mls/hr IV Q48H [facility]; Protocol Magnesium Sulfate (Magnesium Sulfate) 2 gm in 50 mls @ 50 mls/hr IV UD PRN PRN Reason: MG = or < 1.7 Potassium Chloride 40 meq/ (Dextrose) 520 mls @ 130 mls/hr IV UD PRN PRN Reason: K+ = or < 3.5 Ipratropium [place] (Atrovent) 2.5 ml NEB Q4HRT [facility] Last Admin: 03/20/20 07:05 Dose: 2.5 ml Documented by: Iron Carb/Multivit/[place]/Folic Acid (Multivitamin W/Minerals) 1 tab PO DAILY [facility] Lisinopril (Zestril) 2.5 mg PO QDAY [facility] Magnesium Oxide (Magnesium Oxide) 400 mg PO BID [facility] Last Admin: 03/19/20 21:16 Dose: 400 mg Documented by: Melatonin (Melatonin 3mg Tablet) 3 mg PO HSP PRN PRN Reason: Insomnia Nortriptyline HCl (Pamelor) 10 mg PO HS [facility] Last Admin: 03/19/20 21:17 Dose: 10 mg Documented by: Ondansetron HCl (Zofran Odt) 4 mg SL Q4-6HP PRN; Protocol PRN Reason: Nausea And Vomiting Last Admin: 03/20/20 04:18 Dose: 4 mg Documented by: Ondansetron HCl (Zofran) 4 mg IV Q4-6HP PRN; Protocol PRN Reason: Nausea And Vomiting Pantoprazole Sodium (Protonix) 40 mg PO BIDAC [facility] Last Admin: 03/20/20 07:03 Dose: 40 mg Documented by: Pilocarpine 5 Mg (Tablet) 1 dose PO TID [facility] Last Admin: 03/19/20 21:17 Dose: Not Given Documented by: C-Ket 5%-G 6%-D 3% (Topical Cream) 1 dose TOPICAL BID [facility] Last Admin: 03/19/20 21:17 Dose: Not Given Documented by: Polyethylene Glycol (Miralax) 17 gm PO DAILYP PRN PRN Reason: Constipation Potassium Chloride (Kdur) 10 meq PO [facility] Last Admin: 03/20/20 07:03 Dose: 10 meq Documented by: Prednisone (Prednisone) 40 mg PO [facility] Last Admin: 03/20/20 07:04 Dose: 40 mg Documented by: Fluticasone/Salmeterol (Advair 250-50 Diskus) 1 puff INH Q12H [facility] Last Admin: 03/20/20 05:35 Dose: Not Given Documented by: Senna/Docusate Sodium (Senna Plus Tablet) 1 tab PO HS [facility] Last Admin: 03/19/20 21:18 Dose: 1 tab Documented by: Sodium Chloride (Saline Flush) 10 ml IV Q8 [facility] Last Admin: 03/20/20 05:38 Dose: 10 ml Documented by: Sodium Chloride (Sodium Chloride) 1.5 gm PO TID [facility] Last Admin: 03/19/20 21:19 Dose: 1.5 gm Documented by: Tiotropium [place] (Spiriva) 36 mcg INH DAILY [facility] A/P Narrative A/P Narrative: * Acute exacerbation of COPD. Clinical improvement noted on bronchodilators/IV steroids/pulmonary toilet/supplemental oxygen, q 48 levofloxacin, * Acute hypoxic respiratory failure secondary to above -now on room air * Acute cystitis -continue IV levofloxacin * Constipation start bowel protocol * Sigmoid stricture undergoes 3 monthly stricture dilatation by GI. * History of CAD continue home medications including BB/HENRY inhibitor/aspirin/statin * Hypertension stable on home dose HENRY inhibitor/beta-luciano * Low magnesium resolved with replacement * GERD continue PPI * History of Sjogren's syndrome/sicca syndrome on hydroxychloroquine/denosumab, home dose prednisone held as receiving IV steroids for COPD flare * Full code * Prophylax Heparin Plan * Continue COPD management per guidelines * Pre-existing medical condition management as above * Bowel protocol * PT OT nutrition support * Discharge planning Time Spent With Patient Time: Total time spent is greater than 50% in coordination of care (as documented) at patient's floor/unit and/or counseling patient: QUALITY Stroke Symptom Onset Unknown: No VTE Deep Vein Thrombosis/Pulmonary Embolism Present on Admission: No
[2020-03-20 10:02] LABS: ALT/SGPT 1039 U/L (<40); AST/SGOT 1421 U/L (<32); Albumin 3.4 gm/dL (3.2-5.2); Albumin/Globulin Ratio 1.5 (1.0-2.3); Alkaline Phosphatase 97 U/L (39-117); Bilirubin,Total 1.4 mg/dL (0.1-1.0); Blood Urea Nitrogen 29 mg/dL (8-23); Calcium 7.9 mg/dL (8.6-10.4); Carbon Dioxide 15 mmol/L (22-30); Chloride 90 mmol/L (96-108); Globulin 2.3 gm/dL (2.2-3.7); Glomerular Filtration Rate 34; Glucose 73 mg/dL (70-105); Lactate Dehydrogenase 1334 U/L (135-225); Triglycerides 81 mg/dL (<150); Uric Acid 8.9 mg/dL (2.5-8.0)
[2020-03-20] MEDS ORDERED: 0.9 % SODIUM CHLORIDE 1,000 ML IV SCH ×3 (10:15→16:01)
[2020-03-20 10:16] LABS: Anisocytosis FEW (None Seen); Band Neutrophils % 2 % (0-10); Hematocrit 35.6 % (36.0-48.0); Hemoglobin 11.3 g/dL (12.0-15.0); Lymphocytes % 3 % (15-49); Mean Cell Volume 88.8 fL (80.0-100.0); Mean Corpuscular HGB Conc 31.7 g/dL (31.0-36.0); Metamyelocytes % 1 %; Monocytes % (Manual) 3 % (1-12); Nucleated Red Blood Cells 1 % (0-0); Platelet Count 109 K/mcL (140-440); Platelet Estimate DECREASED (Normal); RBC 4.01 M/mcL (4.00-5.20); RBC Morphology NORMAL (Normal); Red Cell Distribution Width 15.6 % (11.5-14.5); Segmented Neutrophils % 91 % (38-78); WBC 17.4 K/mcL (4.5-11.0)
[2020-03-20] MEDS ORDERED: CALCIUM GLUCONATE 4.65 MEQ/10 ML VIAL IV ONE ×2 (10:30→16:01)
[2020-03-20] MEDS ORDERED: ALBUTEROL SULFATE 200 PUFF INHALER INH PRN ×2 (10:32→16:01)
[2020-03-20] MEDS ORDERED: HYDROcodone/APAP 5/325MG TABLET PO PRN ×2 (10:32→16:01)
[2020-03-20] MEDS ORDERED: POTASSIUM CHLORIDE 40 MEQ in DEXTROSE 5% IN WATER 500 ML IV PRN ×2 (10:32→16:01)
[2020-03-20] MEDS ORDERED: CELECOXIB 200 MG CAPSULE PO PRN ×2 (10:32→16:01)
[2020-03-20] MEDS ORDERED: IPRATROPIUM/ALBUTEROL 3 ML AMPUL.NEB NEB PRN ×2 (10:32→16:01)
[2020-03-20] MEDS ORDERED: ACETAMINOPHEN 650 MG/65 ML BOTTLE IV PRN ×2 (10:32→16:01)
[2020-03-20] MEDS ORDERED: ACETAMINOPHEN 325 MG TABLET PO PRN ×2 (10:32→16:01)
[2020-03-20] MEDS ORDERED: 0.9 % SODIUM CHLORIDE 250 ML IV SCH ×5 (10:32→16:01)
[2020-03-20] MEDS ORDERED: ONDANSETRON 4 MG/2 ML VIAL IV PRN ×2 (10:32→16:01)
[2020-03-20] MEDS ORDERED: HYOSCYAMINE SULFATE 0.125 MG TABLET PO PRN ×2 (10:32→16:01)
[2020-03-20] MEDS ORDERED: POLYETHYLENE GLYCOL 3350 17 GM PACKET PO PRN ×2 (10:32→16:01)
[2020-03-20] MEDS ORDERED: ONDANSETRON 4 MG ODT TABLET SL PRN ×2 (10:32→16:01)
[2020-03-20] MEDS ORDERED: BISACODYL 10 MG SUPP.RECT PR PRN ×2 (10:32→16:01)
[2020-03-20] MEDS ORDERED: MAGNESIUM SULFATE 2 GM/50 ML BAG IV PRN ×2 (10:32→16:01)
[2020-03-20] MEDS ORDERED: LORazepam 2 MG/ML VIAL IV ONE (10:41)
[2020-03-20] MEDS ORDERED: CALCIUM GLUCONATE 4.65 MEQ in DEXTROSE 5% IN WATER 50 ML IV ONE (10:45)
[2020-03-20] MEDS ORDERED: HEPARIN SOD,PORK IN 0.45% NACL 500 ML IV ONE (10:55)
[2020-03-20] MEDS ORDERED: HEPARIN SOD,PORK IN 0.45% NACL 25,000 UNIT in PREMIX 1 BAG IV SCH ×2 (11:00→16:01)
[2020-03-20] MEDS ORDERED: LEVOFLOXACIN 500 MG/100 ML BAG IV SCH (11:00)
[2020-03-20] MEDS ORDERED: NOREPINEPHRINE BITARTRATE 16 MG in 0.9 % SODIUM CHLORIDE 234 ML IV SCH (11:00)
[2020-03-20] MEDS: SODIUM BICARBONATE 50 MEQ/50 ML VIAL IV SCH ×3 (11:10→12:29)
[2020-03-20 13:00] LABS: Basophils # (Auto) 0.03 K/mcL (0.00-0.20); Basophils % (Auto) 0.2 % (0.0-2.0); Eosinophils # (Auto) 0.08 K/mcL (0.00-0.70); Eosinophils % (Auto) 0.5 % (0.0-7.0); Hemoglobin 10.5 g/dL (12.0-15.0); Lymphocytes # (Auto) 0.58 K/mcL (1.50-4.80); Lymphocytes % (Auto) 3.5 % (15.0-49.0); Mean Cell Volume 92.6 fL (80.0-100.0); Mean Platelet Volume 12.5 fL (7.4-10.4); Monocytes # (Auto) 1.15 K/mcL (0.10-0.90); Monocytes % (Auto) 6.9 % (1.0-12.0); Neutrophils % (Auto) 88.9 % (38.0-78.0); Platelet Count 63 K/mcL (140-440); RBC 3.78 M/mcL (4.00-5.20); Red Cell Distribution Width 15.8 % (11.5-14.5); WBC 16.7 K/mcL (4.5-11.0)
[2020-03-20] MEDS ORDERED: DOPamine 400 MG in PREMIX 1 BAG IV SCH ×2 (13:15→16:01)
--- NOTE | 2020-03-20 13:24 | Nephrology Consult Note ---
HPI Data of Consult Primary Care Provider: Travis Johnson MD Consult Narrative cc:: CC: Chemo Betancourt Called Sun AM concerning 84 yr old woman with metabolic acidosis and hyperkalemia. Being transfered to ICU. Ordered 3 amps NaHCO3 as HCO# 15 on chem 7 and K 6.2 mEq/L. Repeat ABG post 3 amps as follows: Briefly: Patient with obvious shock given hypotension, fixed paced rhythm of 60 with AV sequential PPM and AICD. Repoerted EF 30%. No fever or rigors.. Earlier last week was calling [email or web address] Re bloating and abd pain. The developed SOB and brought to ED where ABG c/w metabolic acidosis and respiratory acidosis. ED Narrative: 84-year-old female with known COPD and multiple other chronic comorbidities is brought in by EMS for shortness of breath that started this morning. She is not on oxygen at home but is now currently requiring at least 2 L to keep her saturations above 90%. She is unable to talk even without getting short of breath. Normally she walks with a walker but at this time she cannot even walk across the room-significant weakness. Denies fever cough congestion. She reports having been tested for Covid 4 times so far the last time 2 weeks ago. All of these have been negative. She used her 's inhaler this morning but it did not help She notes that she has chronic belly chest and back pain-these are unchanged-she has known Crohn's disease as well as a pacemaker and carotid artery stent 03/19: Initial work-up was consistent with severe COPD exacerbation. ABG 7.5 11/09 actively hyperventilating. Patient was going to need his oxygen. Chest imaging subtle infiltrate. Patient was started on bronchodilators/steroids. She was started on IV magnesium replacement for low magnesium Subsequently hospitalist service was consulted At the time of my evaluation patient is alert and oriented. She feels better and able to talk in near full sentences. Her sats often dropping down to low 80s during conversation. She endorses history as above. Denies recent medicat ion changes. She endorses lower extremity swelling. Endorses to complex prior medical history including pacemaker defibrillator/history of Crohn's/pulmonary fibrosis. -patient clinically improving. No overnight events. Sats improved. Continue bronchodilators and steroid. Did not need noninvasive ventilation. Transfer to medical floor. Transition to oral steroids. No overnight fever chills or concerns per staff. 03/20/2020: Rapid called for hypotension, mildly elevated TnI, chest pain relieved with ativan per nursing. In ICU on Norepi gtt and after 2 liters of IVF, pt paced at 60/min, BP 90/70, awake and oriented. Ice cold extremities. Discussed with patient, , Dr Betancourt and nursing staff. Laboratory Tests 03/20/20 03/20/20 03/20/20 06:22 06:22 11:28 Hgb 10.5 Hct 35 Plt Count 63 Eos % (Auto) 0.5 APTT 38.7 H Sodium 125 L Potassium 6.2 H* Chloride 90 L Carbon Dioxide 15 L Anion Gap 20.0 H BUN 29 H Creatinine 1.4 H GFR Calculation 34 Glucose 73 Uric Acid 8.9 H Calcium 7.9 L Phosphorus 6.0 H* Magnesium 2.3 Total Bilirubin 1.4 H Direct Bilirubin 1.0 H AST 1421 H ALT 1039 H Lactate Dehydrogenase 1334 H Troponin T 0.39 H* Total Protein 5.7 L Albumin 3.4 For now, since the EF is low, will switch to Dopamine to increase heart rate and contractility as she is ice cold and completely vasoconstricted to my exam. She need a Bicarb drip as she still is acidotic and continuing to lack lactic acid. This will no improve w/o an increase in the cariac output. I would be in favor of increasing back up rate of PPM to 70/min or higher. Obciously stop aACEi but this will dao a while to wear off (72 hr), and supporrt patient with pressors/inotropes/bicarb for now is all we can do. MSOF due to cardiogenic shock in my opinion. Constitutional Constitutional: Present fatigue and weakness; Absent chills and headache(s) EENT Eyes: Present as per HPI Ears: Present as per HPI Nose, mouth and throat: Present as per HPI and dry mouth Breasts Breasts: Present as per HPI Cardiovascular Cardiovascular: Present as per HPI, chest pain, edema, pedal edema and slow heart rate (60 and AV sequentially paced) Respiratory Respiratory: Present as per HPI and dyspnea Gastrointestinal Gastrointestinal: Present as per HPI, abdominal pain, bloating, constipation and nausea Genitourinary Genitourinary: Present as per HPI Musculoskeletal Musculoskeletal: Present atrophy Integumentary Integumentary: Present unusual bruising Neurological Neurological: Present as per HPI Psychiatric Psychiatric: Present as per HPI Endocrine Endocrine: Present as per HPI Hematologic/Lymphatic Hematologic/Lymphatic: Present easy bleeding and easy bruising Allergic/Immunologic Allergic/Immunologic: Present as per HPI PFSH PFSH All Active Problems (Updated 03/20/20 @ 17:22 by Mir Fisher MD) Electrolyte abnormality (Acute) Lactic acidosis (Acute) Acute renal failure (ARF) (Acute) Transaminitis (Acute) Cardiogenic shock (Chronic) Abdominal pain (Acute) Constipation (Acute) Acute exacerbation of chronic obstructive pulmonary disease (COPD) (Acute) Hypomagnesemia (Acute) Acute hyperkalemia (Acute) Respiratory failure (Acute) Pedal edema (Chronic) COPD (chronic obstructive pulmonary disease) (Acute) Acute URI (Acute) Myofascial pain (Chronic) Cellulitis (Acute) Cellulitis (Acute) Spasm of thoracic back muscle (Acute) Cellulitis of finger of left hand (Acute) Cellulitis of finger (Acute) Dyspnea on exertion (Acute) Cellulitis of right hand (Acute) Nausea & vomiting (Acute) Abnormal lung sounds (Acute) Pacemaker (Chronic) Cerebrovascular disease (Chronic) Acute coronary syndrome (Chronic) Chronic obstructive pulmonary disease (Chronic) Hypertension, essential (Chronic) SIADH (syndrome of inappropriate ADH production) (Chronic) Hyponatremia (Chronic) Falls (Chronic) Cellulitis (Acute) Scoliosis of lumbar spine (Chronic) Hyperlipidemia (Chronic) Crohn's disease (Chronic) Gastroparesis (Chronic) Encounter for long-term current use of high risk medication (Chronic) Sicca syndrome (Chronic) Pulmonary fibrosis, postinflammatory (Chronic) Bronchiectasis (Chronic) Chronic thoracic back pain (Chronic) DDD (degenerative disc disease), thoracic (Chronic) Compression fracture of body of thoracic vertebra (Chronic) Osteopenia (Chronic) H/O calcium pyrophosphate deposition disease (CPPD) (Chronic) Osteoarthritis (Chronic) Inflammatory arthropathy (Chronic) Gastroesophageal reflux (Chronic) Back pain (Chronic) Melanoma of skin (Chronic) Sjogren's syndrome (Chronic) Polyarthropathy or polyarthritis of multiple sites (Chronic) Analgesic use (Chronic) Hernia, hiatal (Chronic) Enthesopathy of hip region (Chronic) Early satiety (Chronic) Medical History Abdominal bloating (Resolved) Abdominal pain (Resolved) Acute coronary syndrome (Chronic) Acute thoracic back pain (Resolved) Anal benign neoplasm (Resolved) 11/18/2014 - Dr. Ramon Anal fissure (Resolved) stricture Analgesic use (Chronic) Ankle pain (Resolved 07/22/14) Right ankle Arthritis (Resolved) Back pain (Chronic) Bladder infection, acute (Resolved) Bronchiectasis (Chronic) Bronchitis (Resolved) Cellulitis (Resolved) Cellulitis (Acute) Cellulitis (Acute) Cellulitis (Acute) Cerebrovascular disease (Chronic) Chronic obstructive pulmonary disease (Chronic) Chronic thoracic back pain (Chronic) Compression fracture of body of thoracic vertebra (Chronic) COPD (chronic obstructive pulmonary disease) with acute bronchitis (Resolved) Crohn's disease (Chronic) CVA (cerebral vascular accident) (Chronic) states "in December 2017 had a mini stroke" DDD (degenerative disc disease), thoracic (Chronic) Dehydration (Resolved) Diarrhea (Resolved) Diverticulosis of colon (Inactive) 11/18/2014 - Dr. Ramon Early satiety (Chronic) Encounter for long-term current use of high risk medication (Chronic) Enthesopathy of hip region (Chronic) Fall (Resolved) Falls (Chronic) Fracture of finger, closed (Resolved) R thumb Fracture of pubic ramus (Resolved) Gastroenteritis (Resolved) Gastroesophageal reflux (Chronic) Gastroparesis (Chronic) Gout (Resolved) pseudogout Gouty arthropathy (Resolved) H/O calcium pyrophosphate deposition disease (CPPD) (Chronic) Hernia, hiatal (Chronic) History of urinary tract infection (Resolved) Hyperlipidemia (Chronic) Hypertension, essential (Chronic) Hyponatremia (Inactive) Hyponatremia (Chronic) Hyponatremia with decreased serum osmolality (Inactive) see SIADH Inflammatory arthropathy (Chronic) Melanoma of skin (Chronic) Minor head injury (Resolved) Myofascial pain (Chronic) Nausea (Resolved) Nausea & vomiting (Resolved) Nausea and vomiting (Resolved) No problem, feared complaint unfounded (Resolved) Osteoarthritis (Chronic) Osteopenia (Chronic) Pacemaker (Chronic) and AICD present. 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 Sicca syndrome (Chronic) Sjogren's syndrome (Chronic) Slurring of speech (Resolved) Transient cerebral ischemia (Resolved) Urinary tract infection (Resolved) UTI (urinary tract infection) (Resolved) Ventricular fibrillation (Resolved ~2010) ques torsades de pointes Weakness (Resolved) Weight loss (Inactive) Weight loss, unintentional (Inactive) Word finding difficulty (Resolved) Wound cellulitis (Resolved) Wound infection (Resolved) Surgical History History of appendectomy (Resolved) History of automatic internal cardiac defibrillator (AICD) (Resolved) History of biliary stent insertion (Resolved) History of cholecystectomy (Resolved) History of colectomy (Resolved) History of colonoscopy (Resolved 02/22/15) Dr. Ramon - HP History of esophagogastroduodenoscopy (Resolved 09/17/14) Dr. Ramon - Gastritis History of hysterectomy (Resolved) History of intestinal surgery (Resolved) partial bowel resection History of knee replacement (Resolved) bilateral History of rectal surgery (Resolved) fissure repair History of sigmoidoscopy (Resolved 07/27/15) 02/22/15 Dr. Ramon History of total hip arthroplasty (Resolved) R Status post cardiac pacemaker procedure (Chronic) recently replacement of pacer and icd per patient. Status post laparoscopic-assisted sigmoidectomy (Chronic 10/11/15) with Kenalog injection Family History Sister Alzheimer's disease Unknown Asthma Essential hypertension Malignant neoplasm Brother Atherosclerosis of coronary artery Father , at 69y Atherosclerosis of coronary artery Mother , at 90y of old age Atherosclerosis of coronary artery Osteoarthritis Social History marital status: education level: high school occupational status: retired other: 4 children/12 gc smoking status: Former smoker quit date: 05/20/92 pack-years: 40 alcohol intake frequency: former alcohol drinker substance use type: does not use MEDS/ALLERGIES Home Medications and Allergies Home Medications Medication Instructions Recorded Confirmed Type multivitamin 1 tab PO QDAY tab 11/02/14 03/18/20 History hyoscyamine sulfate 0.125 mg 0.125 mg PO Q6H PRN #60 tab 09/05/16 03/18/20 Rx sublingual tablet hydrocodone 5 mg-acetaminophen 325 0.5 tab PO Q8H PRN #20 tab 01/22/17 03/18/20 Rx mg tablet bacitracin 1 dose INTRANASAL BID 08/21/17 03/18/20 History saliva stimulant comb. no.7 1 dose PO QHS 08/21/17 03/18/20 History artificial tears(hypromellose) 3.5 gm OD QHS 01/23/18 03/18/20 History aspirin 81 mg tablet,delayed 81 mg PO QHS 01/23/18 03/18/20 History release sour pathak extract 1,000 mg PO DAILY 01/23/18 03/18/20 History bisoprolol fumarate 5 mg tablet 10 mg PO QDAY tab 04/01/18 03/18/20 History celecoxib 200 mg capsule 200 mg PO QDAY PRN #180 cap 05/30/18 03/18/20 Rx calcium carbonate 200 mg calcium 200 mg PO DAILY 08/04/18 03/18/20 History (500 mg) chewable tablet lisinopril 2.5 mg tablet 2.5 mg PO QDAY 10/01/18 03/18/20 History magnesium oxide 400 mg PO BID #60 tab 12/27/18 03/18/20 Rx nortriptyline 10 mg capsule 10 mg PO HS 04/03/19 03/18/20 History C-Ket 5%-G 6%-D 3% See Rx Instructions .ROUTE 05/22/19 03/18/20 Rx .COMPLEX #1 tube denosumab 60 mg/mL subcutaneous 60 mg SUB-Q [id number] #1 ml 05/27/19 03/18/20 Rx syringe tiotropium bromide 18 mcg capsule 1 cap INHALATION QDAY #90 puff 06/03/19 03/18/20 Rx with inhalation device albuterol sulfate 90 mcg INHALATION Q6H PRN 10/01/19 03/18/20 History sodium chloride 1,500 mg PO TID 10/01/19 03/18/20 History pilocarpine HCl 5 mg tablet 5 mg PO TID #270 tab 11/13/19 03/18/20 Rx hydroxychloroquine 200 mg tablet See Rx Instructions PO BID #180 tab 12/14/19 03/18/20 Rx fluticasone 250 mcg-salmeterol 50 1 inh INHALATION Q12H 12/22/19 03/18/20 History mcg/dose blistr powdr for inhalation ipratropium 0.5 mg-albuterol 3 mg 3 ml INHALATION Q6H PRN #180 ml 01/07/20 03/18/20 Rx (2.5 mg base)/3 mL nebulization soln potassium chloride 10 mEq 10 meq PO QDAY #90 tab 01/26/20 03/18/20 Rx tablet,extended release atorvastatin 20 mg tablet 20 mg PO QDAY #90 tab 03/08/20 03/18/20 Rx budesonide 3 mg 3 mg PO TID 90 Days #270 each 03/15/20 03/18/20 Rx capsule,delayed,extended release lansoprazole 30 mg capsule,delayed 30 mg PO BID #180 cap 03/15/20 03/18/20 Rx release furosemide 20 mg PO TID 03/18/20 03/18/20 History prednisone 10 mg PO BID 03/18/20 03/18/20 History Allergies Allergy/AdvReac Type Severity Reaction Status Date / Time azathioprine [From Imuran] Allergy Severe Anaphylaxis Verified 03/18/20 20:41 azithromycin [From Zithromax] Allergy Severe Anaphylaxis Verified 03/18/20 20:41 clarithromycin Allergy Intermediate Vomiting Verified 03/18/20 20:41 clindamycin AdvReac Intermediate Diarrhea Verified 03/18/20 20:41 adhesive tape AdvReac Mild Rash Verified 03/18/20 20:41 codeine AdvReac Mild Vomiting Verified 03/18/20 20:41 Erythromycin Base AdvReac Mild Vomiting Verified 03/18/20 20:41 morphine AdvReac Mild Vomiting Verified 03/18/20 20:41 doxycycline AdvReac Vomiting Verified 03/18/20 20:41 Physical Examination Vital Signs Vital signs: Temp Pulse Resp BP Pulse Ox 36.1 C 58 L 27 H 104/72 91 03/20/20 08:00 03/20/20 11:48 03/20/20 11:48 03/20/20 08:00 03/20/20 08:00 General Appearance General appearance: cachectic, chronically ill and fatigue EENT EENT: ATNC, PERRL and mucous membranes dry Neck Neck: no JVD and no carotid bruit Respiratory Respiratory: kyphosis and rhonchi Cardiovascular Cardiology: no murmurs, no rub, no gallops, edema, regular rate, normal S1 and normal S2 Gastrointestinal Gastrointestinal: no guarding and distended Integumentary Integumentary: cool/clammy, ecchymotic and chronic venous stasis Neurologic Neurologic: no focal deficit, alert and oriented x3, gait normal (Not assessed), strength 5/5 (3+/5 symmetrically weak) and CN 3-12 intact Musculoskeletal Musculoskeletal: cyanosis and decreased ROM Psychiatric Psychiatric: mood/affect appropriate Additional Exam Additional exam: Ice cold distal extremities with dopplerable pulse only. Combination of cyanosis and ecchymosis especially in the lower extremities Results Lab Results Result Diagrams: 03/20/20 11:28 03/20/20 18:08 Lab results: Most recent lab results Calcium 7.9 mg/dL (8.6-10.4) L 03/20/20 06:22 Phosphorus 6.0 mg/dL (2.5-4.5) H* 03/20/20 06:22 Magnesium 2.3 mg/dL (1.6-2.5) 03/20/20 06:22 A/P Assessment and plan (1) Cardiogenic shock: Assessment and plan: Baseline ejection fraction is 35% and she has an AV sequential pacemaker with an AICD. Status: Chronic Comment: At this point I would get rid of the lisinopril, volume expanded as tolerated, use dopamine as a combined inotropic and chronotropic agent. Urine output and a reduction in lactic acid would be a good indicator of how successful therapy is in her overall prognosis. (2) Acute renal failure (ARF): Status: Acute Comment: Expect worsening until her hemodynamics improve. Need to measure her fractional excretion of sodium and also have the lab look for granular casts which would herald the onset of acute tubular necrosis. Initially this is acute prerenal azotemia but she is at very high risk of tubular injury and the development of acute tubular necrosis. (3) Transaminitis: Status: Acute Comment: This represents decreased hepatic perfusion (4) Lactic acidosis: Assessment and plan: Decreased tissue perfusion Status: Acute Comment: Therapy directed at the underlying cause which is cardiogenic (5) Electrolyte abnormality: Assessment and plan: We will check her TSH and cortisol level as she has both a low sodium and a high potassium Suspect this is hyperkalemia due to intra to extracellular shifting of potassium (as well as phosphorus) in the setting of cardiogenic shock and acidosis Hyponatremia could be due to excess clear fluids at home when she was having abdominal pain and high ADH levels from the development decreased cardiac output leading to the production of a urine that is not able to clear free water. I did check the cortisol level Status: Acute Comment: Cortisol level and use iso-osmolar IV fluids such as normal saline Narrative A/P Narrative: This is a patient with a known cardiomyopathy who clearly has tissue hypoperfusion leading to acute hepatic injury with transaminitis, acute metabolic acidosis with lactic acidosis, acute renal failure probably at this juncture prerenal azotemia but could easily jump to acute tubular necrosis with continued renal hypoperfusion, and finally acute hyperkalemia on the basis of acute renal failure with pre-existing HENRY inhibitor administration intracellular to extracellular potassium shifts due to acute acidosis. In addition there is hyponatremia and hyperphosphatemia. Reason I think this is cardiogenic in origin is there is evidence of multisystem damage or dysfunction. She has a known cardiomyopathy with an EF of 30% and now her cardiac output is fixed by her heart rate. She is maximally vasoconstricted on physical exam with ice cold extremities and I would favor the combination of an inotropic and chronotropic agent such as dopamine to increase her cardiac output and hopefully her perfusion of critical organs. I suspect some of her abdominal pain is ischemic bowel as well which would worsen the metabolic acidosis. As of her underlying pulmonary disease (COPD) she is unable to compensate for the primary metabolic acidosis within an increase in minute ventilation to reduce her PCO2 as much as required to correct her pH to at least 7.2 explained she will require IV bicarbonate both to correct the hyperkalemia and the metabolic acidosis to allow her inotropic agents and chronotropic agents to work effectively. This patient is critically ill and the next 24 hours will pretty much tell her overall prognosis. Time Spent With Patient Time: Total time spent is greater than 50% in coordination of care (as documented) at patient's floor/unit and/or counseling patient: Total time spent with greater than 50% in coordination of care (as documented) at patient's floor/unit and/or counseling patient:: Greater than 35 minutes (1 hour of bedside critical care management including update with family and patient and nursing staff and discussion with the hospital physician.)
[2020-03-20 13:34] LABS: ALT/SGPT 1382 U/L (<40); AST/SGOT 2082 U/L (<32); Albumin 2.9 gm/dL (3.2-5.2); Albumin/Globulin Ratio 1.5 (1.0-2.3); Alkaline Phosphatase 88 U/L (39-117); Bilirubin,Direct 1.2 mg/dL (<0.3); Bilirubin,Total 1.6 mg/dL (0.1-1.0); Blood Urea Nitrogen 29 mg/dL (8-23); Carbon Dioxide 12 mmol/L (22-30); Chloride 91 mmol/L (96-108); Globulin 1.9 gm/dL (2.2-3.7); Glomerular Filtration Rate 29; Glucose 72 mg/dL (70-105); Lactate Dehydrogenase 1684 U/L (135-225); Phosphorous 7.2 mg/dL (2.5-4.5); Triglycerides 129 mg/dL (<150); Uric Acid 8.8 mg/dL (2.5-8.0)
[2020-03-20] MEDS ORDERED: INSULIN REGULAR, HUMAN 1 UNIT/0.01 ML UNIT IV ONE (13:42)
[2020-03-20] MEDS ORDERED: [UNRECOGNIZED DRUG - OTHER] IV ONE (13:42)
[2020-03-20] MEDS ORDERED: DEXTROSE 50% 50 ML VIAL IV ONE (13:45)
[2020-03-20] MEDS ORDERED: INSULIN REGULAR, HUMAN 1 UNIT/0.01 ML UNIT SQ ONE (13:45)
[2020-03-20] MEDS ORDERED: SODIUM BICARBONATE VIAL 150 MEQ in DEXTROSE 5% IN WATER 850 ML IV SCH ×2 (14:00→22:00)
[2020-03-20] MEDS ORDERED: 0.9 % SODIUM CHLORIDE 10 ML SYRINGE IV SCH ×4 (14:00→22:00)
[2020-03-20] MEDS ORDERED: PREMIX 2 BAG IV ONE (14:05)
--- NOTE | 2020-03-20 14:48 | XRay Report ---
INDICATION: Central Line Placement TECHNIQUE: AP portable chest x-ray chest x-ray COMPARISON: Previous termination dated 03/20/2020 FINDINGS:Left transvenous pacemaker leads are unchanged. There is a right central venous catheter with its tip in the proximal right atrium. There is no pneumothorax Lungs:Lungs are negative. No focal pulmonary parenchymal infiltrate or mass Heart, vascular:No significant cardiomegaly. Pulmonary vascularity is normal. No pulmonary edema or pulmonary congestion Mediastinum, [place]:No mediastinal widening. No hilar mass Pleura:No pleural fluid. No pleural-based mass or calcification. There is no pneumothorax Skeletal:Negative. IMPRESSION: 1. Right central venous catheter with its tip in the proximal right atrium 2. No pneumothorax Interpreted and Authenticated by: Kailash Tan 03/20/20
[2020-03-20] MEDS ORDERED: FUROSEMIDE 20 MG TABLET PO SCH (15:00)
[2020-03-20] MEDS ORDERED: SODIUM CHLORIDE 1 GM TABLET PO SCH ×2 (15:00→21:00)
[2020-03-20] MEDS ORDERED: PILOCARPINE 5 MG PO SCH ×2 (15:00→21:00)
[2020-03-20] MEDS ORDERED: BUDESONIDE 3 MG CAP.XL.24H PO SCH ×2 (15:00)
[2020-03-20] MEDS ORDERED: SODIUM CHLORIDE 1 GM TABLET PO ONE (16:30)
[2020-03-20] MEDS ORDERED: FLUTICASONE/SALMETEROL 250/50 INHALER #14 INH SCH ×2 (16:46)
[2020-03-20] MEDS ORDERED: PANTOPRAZOLE 40 MG TABLET PO SCH ×2 (17:00)
[2020-03-20] MEDS: BACITRACIN TOPICAL OINT 15 GM TUBE TOPICAL SCH (18:20)
[2020-03-20] MEDS: DOCUSATE SODIUM 100 MG CAPSULE PO SCH (18:21)
[2020-03-20] MEDS: BUDESONIDE 3 MG CAP.XL.24H PO SCH (18:22)
[2020-03-20] MEDS: HEPARIN 5,000 UNIT/ML VIAL SQ SCH (18:22)
[2020-03-20] MEDS: FUROSEMIDE 20 MG TABLET PO SCH (18:22)
[2020-03-20] MEDS: MAGNESIUM OXIDE 400 MG TABLET PO SCH (18:24)
[2020-03-20] MEDS: [UNRECOGNIZED DRUG - OTHER] TOPICAL SCH (18:25)
[2020-03-20] MEDS: PILOCARPINE 5 MG TABLET PO SCH (18:25)
[2020-03-20] MEDS: HYDROXYCHLOROQUINE 200 MG TABLET PO SCH (18:26)
[2020-03-20] MEDS: SODIUM CHLORIDE 1 GM TABLET PO SCH (18:28)
[2020-03-20 18:32] LABS: ABG Methemoglobin 0.3 % (0.4-1.5); Total Hemoglobin 10.6 gm/Dl (13.5-16.5); VBG Oxygen Saturation 81.8 %; VBG PCO2 43.7 mmHg; VBG PH 7.26 U; VBG PO2 67.7 mmHg; VBG Total CO2 20.3 mmol/L
[2020-03-20] MEDS ORDERED: IPRATROPIUM 2.5 ML AMPUL.NEB NEB SCH (19:00)
[2020-03-20 19:03] LABS: Thyroid Stimulating Hormone 6.32 uIU/mL (0.27-5.01)
[2020-03-20 19:41] LABS: Calcium 7.1 mg/dL (8.6-10.4); Phosphorous 6.2 mg/dL (2.5-4.5)
[2020-03-20] MEDS ORDERED: MIDAZOLAM 2 MG/2 ML VIAL IV ONE (20:20)
[2020-03-20] MEDS ORDERED: ROCURONIUM 10 MG/ML ML IV ONE (20:20)
--- NOTE | 2020-03-20 20:47 | XRay Report ---
INDICATION: cardiac arrrest TECHNIQUE: AP portable supine chest x-ray COMPARISON: Previous chest x-rays dated 03/20/2020, 03/18/2020 FINDINGS:Right central venous catheter with its tip in the distal superior vena cava. There is an endotracheal tube with its tip 3 cm above the hamlet. Left transvenous pacemaker leads are unchanged Lungs:Mild density at the left lung base consistent with atelectasis. Mild infiltrate is possible. There is a small right pneumothorax. This is at the right lung base on this AP, supine radiograph. Heart, vascular:No significant cardiomegaly. Pulmonary vascularity is normal. No pulmonary edema or pulmonary congestion Mediastinum, [place]:No mediastinal widening. No hilar mass Pleura:No pleural fluid. No pleural-based mass or calcification. Small right basilar pneumothorax Skeletal:Possible right fifth rib fracture. Abdominal: Mild gaseous distention of the stomach. IMPRESSION: 1. Endotracheal tube tip 3 cm above the hamlet 2. Right central venous catheter tip in the distal superior vena cava 3. Small right pneumothorax. Possible right fifth rib fracture. Interpreted and Authenticated by: Kailash Tan 03/20/20
--- NOTE | 2020-03-20 20:59 | Transfer Summary ---
Discharge Provider Provider Patient information: Note initiated : 03/20/20 at 8:45 pm Service Date, if different from initiated Date: [] Patient: Maribeth Berrios 84 y/o F admitted on 03/18/20 for shortness of breath. Transfer diagnosis * CODE BLUE cardiorespiratory secondary to PEA. Status post 30 minutes resuscitation including CPR/2 A of epinephrine. Unclear etiology. Likely underlying dilated cardiomyopathy/cardiogenic shock resulting in PEA. Paced rhythm. On nor epinephrine/dopamine drip, undergoing hypothermia protocol. * Cardiogenic shock-on dual pressors. Transferring to cardiology service at [place] * Acute hypoxic respiratory failure currently on mechanical ventilation. * Acute kidney injury secondary shock-management nephrology * Hyperkalemia ongoing management per nephrology. Potassium improved from 6.8- 5.5 * Shock liver secondary to cardiogenic shock * Acute COPD exacerbation clinically improved over the course of 72 hours on steroids/bronchodilators * History of CAD/defib/pacemaker * History of Sjogren's syndrome/sicca syndrome Brief hospital course Interval history: History of present illness: Ms. Berrios is a 84 year old F with a history of COPD/CAD and prior cardiac arrest/pacemaker defibrillator /GERD/Crohn's disease who was in her baseline state of health and lives with her . Patient noted gradually increasing productive cough along with shortness of breath over the last few days. This morning she was barely able to walk or function and any amount of effort could cause extreme shortness of breath. She denies associated fever. She endorses that using her regular inhalers did not help. She presents to the ER for evaluation Initial work-up was consistent with severe COPD exacerbation. ABG 7.56/23 actively hyperventilating. Patient was going to need his oxygen. Chest imaging subtle infiltrate. Patient was started on bronchodilators/steroids. She was started on IV magnesium replacement for low magnesium Subsequently hospitalist service was consulted At the time of my evaluation patient is alert and oriented. She feels better and able to talk in near full sentences. Her sats often dropping down to low 80s during conversation. She endorses history as above. Denies recent medication changes. She endorses lower extremity swelling. Endorses to complex prior medical history including pacemaker defibrillator/history of Crohn's/pulmonary fibrosis. 03/19-patient clinically improving. No overnight events. Sats improved. Continue bronchodilators and steroid. Did not need noninvasive ventilation. Transfer to medical floor. Transition to oral steroids. No overnight fever chills or concerns per staff. 03/20-patient complains of spells of panic attacks, also complains of constipation/abdominal discomfort. CT abdomen on no intra-abdominal proces s. Feels constipated. Started on bowel protocol. Continue therapy/nutrition support. She is due for sigmoidoscopy on the for stricture Nurse responded patient's blood pressure 70s. Stat 1 L bolus ordered. Labs revealed potassium 6, creatinine 1.4, LFTs remarkable elevation over 1000 suggestive of shock liver. Discontinue antihypertensives. Patient carries a history of dilated cardiomyopathy with EF 35%. Transfer to ICU/nephrology consult Continuation of rapid response Stat EKG paced rhythm Stat troponin 0.39, prior troponin on admit 0.31, close to baseline. Troponin rise can to be attributed to underlying renal insufficiency Heparin drip ordered following troponin elevation Case discussed with nephrology recommends 3M bicarb 1 g calcium Patient remains short of breath and now complaining of chest pain Anesthesia consultation for intubation/mechanical ventilation Tertiary center transfer coordination, Case discussed with transfer center. 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 Patient clinically improved and doing well on 3-4 L oxygen. Patient was transferred to ICU. Anesthesia consult for intubation canceled in light of improved respiratory status. Nephrology on board. Started on Levophed. Alert and pain-free. Systolics improved to 110. Serial BMP ordered. Potassium improved from 6.8 to 5.5 following bicarb/insulin administration. Management nephrology. Creatinine repeat 1.7. Nephrology later discontinued Levophed and started dobutamine for cardiogenic shock. Nephrology also recommended discontinuing heparin drip YVES RAINES called 7.50 PM after nurse discovered pulseless electrical activity. Patient started on CPR. Received 2 A epi/25 minutes CPR with return of spontaneous circulation. Hypothermia protocol initiated. Patient intubated following rocuronium by ER physician. Please refer to YVES RAINES documentation for specific details. Case discussed with Dr. Timmons at [place] cardiology who accepted patient for further management post resuscitation. Discussed with patient's deteriorating status and high risk mortality following CODE BLUE. Stat x-ray chest shows small right pneumothorax. Currently on mechanical ventilation 100% FiO2 PEEP 5, end-tidal CO2 32. Patient is gravely ill and carries a very high risk mortality during transfer. Patient will be airlifted to [place] to provide the best chance at survival. in agreement for transfer. Date of admission: 03/18/20 17:50 Discharge date: 03/20/20 Primary care physician: Travis Johnson MD Consults: 03/18/20 16:31 Consult to Physician [CONS] Stat Comment: Consulting Provider: Chemo Betancourt Reason For Exam: Physician to Consult 03/20/20 10:10 Consult to Physician [CONS] Routine Comment: Consulting Provider: Mir Fisher Reason For Exam: Physician to Consult Discharge Meds Discharge Medications Home Medications multivitamin 1 tab PO QDAY tab 11/02/14 [History Confirmed 03/18/20 Last Taken 03/18/20] hyoscyamine sulfate 0.125 mg sublingual tablet 0.125 mg PO Q6H PRN #60 tab 09/05/16 [Rx Confirmed 03/18/20 Last Taken 3 Days Ago ~03/15/20] hydrocodone 5 mg-acetaminophen 325 mg tablet 0.5 tab PO Q8H PRN #20 tab 01/22/17 [Rx Confirmed 03/18/20 Last Taken 03/18/20] bacitracin 1 dose INTRANASAL BID 08/21/17 [History Confirmed 03/18/20 Last Taken 03/18/20] saliva stimulant comb. no.7 1 dose PO QHS 08/21/17 [History Confirmed 03/18/20 Last Taken 03/18/20] artificial tears(hypromellose) 3.5 gm OD QHS 01/23/18 [History Confirmed 03/18/20 Last Taken 03/18/20] aspirin 81 mg tablet,delayed release 81 mg PO QHS 01/23/18 [History Confirmed 03/18/20 Last Taken 1 Day Ago ~03/17/20] sour pathak extract 1,000 mg PO DAILY 01/23/18 [History Confirmed 03/18/20 Last Taken 03/18/20] bisoprolol fumarate 5 mg tablet 10 mg PO QDAY tab 04/01/18 [History Confirmed 03/18/20 Last Taken 03/18/20] celecoxib 200 mg capsule 200 mg PO QDAY PRN #180 cap 05/30/18 [Rx Confirmed 03/18/20 Last Taken 3 Weeks Ago ~02/26/20] calcium carbonate 200 mg calcium (500 mg) chewable tablet 200 mg PO DAILY 08/04/18 [History Confirmed 03/18/20 Last Taken 3 Days Ago ~03/15/20] lisinopril 2.5 mg tablet 2.5 mg PO QDAY 10/01/18 [History Confirmed 03/18/20 Last Taken 03/18/20] magnesium oxide 400 mg PO BID #60 tab 12/27/18 [Rx Confirmed 03/18/20 Last Taken 03/18/20] nortriptyline 10 mg capsule 10 mg PO HS 04/03/19 [History Confirmed 03/18/20 Last Taken 1 Day Ago ~03/17/20] C-Ket 5%-G 6%-D 3% See Rx Instructions .ROUTE .COMPLEX #1 tube 05/22/19 [Rx Confirmed 03/18/20 Last Taken 1 Day Ago ~03/17/20] denosumab 60 mg/mL subcutaneous syringe 60 mg SUB-Q [id number] #1 ml 05/27/19 [Rx Confirmed 03/18/20 Last Taken 4 Months Ago ~11/17/19] tiotropium bromide 18 mcg capsule with inhalation device 1 cap INHALATION QDAY #90 puff 06/03/19 [Rx Confirmed 03/18/20 Last Taken 03/18/20] albuterol sulfate 90 mcg INHALATION Q6H PRN 10/01/19 [History Confirmed 03/18/20 Last Taken 03/18/20] sodium chloride 1,500 mg PO TID 10/01/19 [History Confirmed 03/18/20 Last Taken 03/18/20] pilocarpine HCl 5 mg tablet 5 mg PO TID #270 tab 11/13/19 [Rx Confirmed 03/18/20 Last Taken 03/18/20] hydroxychloroquine 200 mg tablet See Rx Instructions PO BID #180 tab 12/14/19 [Rx Confirmed 03/18/20 Last Taken 03/18/20] fluticasone 250 mcg-salmeterol 50 mcg/dose blistr powdr for inhalation 1 inh INHALATION Q12H 12/22/19 [History Confirmed 03/18/20 Last Taken 03/18/20] ipratropium 0.5 mg-albuterol 3 mg (2.5 mg base)/3 mL nebulization soln 3 ml INHALATION Q6H PRN #180 ml 01/07/20 [Rx Confirmed 03/18/20 Last Taken 03/18/20] potassium chloride 10 mEq tablet,extended release 10 meq PO QDAY #90 tab 01/26/20 [Rx Confirmed 03/18/20 Last Taken 03/18/20] atorvastatin 20 mg tablet 20 mg PO QDAY #90 tab 03/08/20 [Rx Confirmed 03/18/20 Last Taken 1 Day Ago ~03/17/20] budesonide 3 mg capsule,delayed,extended release 3 mg PO TID 90 Days #270 each 03/15/20 [Rx Confirmed 03/18/20 Last Taken 03/18/20] lansoprazole 30 mg capsule,delayed release 30 mg PO BID #180 cap 03/15/20 [Rx Confirmed 03/18/20 Last Taken 03/18/20] furosemide 20 mg PO TID 03/18/20 [History Confirmed 03/18/20 Last Taken 03/18/20] prednisone 10 mg PO BID 03/18/20 [History Confirmed 03/18/20 Last Taken 03/18/20] COURSE Hospital Course Hospital course: . Discharge diagnosis: Cardiac arrest Time Spent with Patient Time attestation: Total time spent providing and/or coordinating discharge services: EXAM Constitutional Vitals: Temp Pulse Resp BP Pulse Ox 96.3 F L 62 24 H 86/60 94 03/20/20 16:00 03/20/20 19:23 03/20/20 19:23 03/20/20 18:31 03/20/20 18:01 Discharge Data Data Completed and Pending Labs on day of discharge: Labs from last 24 hours 03/20/20 03/20/20 03/20/20 18:08 18:08 18:08 WBC RBC Hgb Hct MCV MCH MCHC RDW Plt Count MPV Neut % (Auto) Lymph % (Auto) [place] % (Auto) Eos % (Auto) Baso % (Auto) Lymph # (Auto) [place] # (Auto) Eos # (Auto) Baso # (Auto) Seg Neutrophils % Band Neutrophils % Lymphocytes % Monocytes % (Manual) Metamyelocytes % Absolute Neutrophils Nucleated RBCs Platelet Estimate RBC Morphology Anisocytosis APTT ABG Methemoglobin 0.3 L VBG pH 7.26 VBG pCO2 43.7 VBG pO2 67.7 VBG HCO3 19.0 VBG Total CO2 20.3 VBG O2 Saturation 81.8 VBG Base Excess -8 L Carboxyhemoglobin 7.8 H Total Hemoglobin 10.6 L O2 Delivery Level Pending Sodium 130 L Potassium 5.5 H Chloride 89 L Carbon Dioxide 18 L Anion Gap 23.0 H BUN 30 H Creatinine 1.7 H GFR Calculation 27 Glucose 231 H Uric Acid Calcium 7.1 L Phosphorus 6.2 H* Magnesium Total Bilirubin Direct Bilirubin GGT AST ALT Alkaline Phosphatase Lactate Dehydrogenase Troponin T Total Protein Albumin 3.0 L Globulin Albumin/Globulin Ratio Triglycerides TSH 6.32 H Thyroxine (T4) 6.0 Random Cortisol 33.9 03/20/20 03/20/20 03/20/20 11:28 11:28 11:28 WBC 16.7 H RBC 3.78 L Hgb 10.5 L Hct 35.0 L MCV 92.6 MCH 27.8 MCHC 30.0 L RDW 15.8 H Plt Count 63 L MPV 12.5 H Neut % (Auto) 88.9 H Lymph % (Auto) 3.5 L [place] % (Auto) 6.9 Eos % (Auto) 0.5 Baso % (Auto) 0.2 Lymph # (Auto) 0.58 L [place] # (Auto) 1.15 H Eos # (Auto) 0.08 Baso # (Auto) 0.03 Seg Neutrophils % Band Neutrophils % Lymphocytes % Monocytes % (Manual) Metamyelocytes % Absolute Neutrophils 14.81 H Nucleated RBCs Platelet Estimate RBC Morphology Anisocytosis APTT 38.7 H ABG Methemoglobin VBG pH VBG pCO2 VBG pO2 VBG HCO3 VBG Total CO2 VBG O2 Saturation VBG Base Excess Carboxyhemoglobin Total Hemoglobin O2 Delivery Level Sodium 126 L Potassium 6.8 H* Chloride 91 L Carbon Dioxide 12 L Anion Gap 23.0 H BUN 29 H Creatinine 1.6 H GFR Calculation 29 Glucose 72 Uric Acid 8.8 H Calcium 7.0 L Phosphorus 7.2 H* Magnesium 2.5 Total Bilirubin 1.6 H Direct Bilirubin 1.2 H GGT 238 H AST 2082 H ALT 1382 H Alkaline Phosphatase 88 Lactate Dehydrogenase 1684 H Troponin T Total Protein 4.8 L Albumin 2.9 L Globulin 1.9 L Albumin/Globulin Ratio 1.5 Triglycerides 129 TSH Thyroxine (T4) Random Cortisol 03/20/20 03/20/20 03/20/20 06:22 06:22 06:22 WBC 17.4 H RBC 4.01 Hgb 11.3 L Hct 35.6 L MCV 88.8 MCH 28.2 MCHC 31.7 RDW 15.6 H Plt Count 109 L MPV 11.0 H Neut % (Auto) Lymph % (Auto) [place] % (Auto) Eos % (Auto) Baso % (Auto) Lymph # (Auto) [place] # (Auto) Eos # (Auto) Baso # (Auto) Seg Neutrophils % 91 H Band Neutrophils % 2 Lymphocytes % 3 L Monocytes % (Manual) 3 Metamyelocytes % 1 Absolute Neutrophils Nucleated RBCs 1 H Platelet Estimate Decreased A RBC Morphology Normal Anisocytosis Few A APTT ABG Methemoglobin VBG pH VBG pCO2 VBG pO2 VBG HCO3 VBG Total CO2 VBG O2 Saturation VBG Base Excess Carboxyhemoglobin Total Hemoglobin O2 Delivery Level Sodium 125 L Potassium 6.2 H* Chloride 90 L Carbon Dioxide 15 L Anion Gap 20.0 H BUN 29 H Creatinine 1.4 H GFR Calculation 34 Glucose 73 Uric Acid 8.9 H Calcium 7.9 L Phosphorus 6.0 H* Magnesium 2.3 Total Bilirubin 1.4 H Direct Bilirubin 1.0 H GGT 267 H AST 1421 H ALT 1039 H Alkaline Phosphatase 97 Lactate Dehydrogenase 1334 H Troponin T 0.39 H* Total Protein 5.7 L Albumin 3.4 Globulin 2.3 Albumin/Globulin Ratio 1.5 Triglycerides 81 TSH Thyroxine (T4) Random Cortisol Discharge Plan Patient/Caregiver Discharge Instructions Activity: other Diet: NPO Prescriptions: No Action celecoxib [Celebrex] 200 mg capsule 200 mg PO QDAY PRN (Reason: pain) Qty: 180 RF: 0 C-Ket 5%-G 6%-D 3% See Rx Instructions .ROUTE .COMPLEX Qty: 1 RF: 0 Spiriva with HandiHaler 18 mcg capsule, w/inhalation device 1 cap INHALATION QDAY Qty: 90 RF: 1 pilocarpine HCl [Salagen (pilocarpine)] 5 mg tablet 5 mg PO TID Qty: 270 RF: 3 hydroxychloroquine [Plaquenil] 200 mg tablet See Rx Instructions PO BID Qty: 180 RF: 3 ipratropium-albuterol 0.5 mg-3 mg(2.5 mg base)/3 mL solution for nebulization 3 ml INHALATION Q6H PRN (Reason: shortness of breath or wheezing) Qty: 180 RF: 2 potassium chloride 10 mEq tablet extended release 10 meq PO QDAY Qty: 90 RF: 1 atorvastatin [Lipitor] 20 mg tablet 20 mg PO QDAY Qty: 90 RF: 1 lansoprazole [Prevacid] 30 mg capsule,delayed release(DR/EC) 30 mg PO BID Qty: 180 RF: 1 budesonide [Entocort EC] 3 mg capsule,delayed,extend.release 3 mg PO TID 90 Days Qty: 270 RF: 1 multivitamin tablet 1 tab PO QDAY RF: 0 hyoscyamine sulfate [Levsin/SL] 0.125 mg tablet, sublingual 0.125 mg PO Q6H PRN (Reason: dyspepsia) Qty: 60 RF: 0 hydrocodone-acetaminophen 0 tablet 0.5 tab PO Q8H PRN (Reason: Pain) Qty: 20 RF: 0 aspirin 81 mg tablet,delayed release (DR/EC) 81 mg PO QHS RF: 0 lisinopril 2.5 mg tablet 2.5 mg PO QDAY RF: 0 Prolia 60 mg/mL syringe 60 mg SUB-Q [id number] Qty: 1 RF: 0 fluticasone propion-salmeterol [Advair Diskus] 250-50 mcg/dose blister with device 1 inh INHALATION Q12H RF: 0 nortriptyline 10 mg capsule 10 mg PO HS RF: 0 bisoprolol fumarate 5 mg tablet 10 mg PO QDAY RF: 0 bacitracin 1 DOSE ointment 1 dose INTRANASAL BID RF: 0 saliva stimulant comb. no.7 1 EACH gel 1 dose PO QHS RF: 0 artificial tears(hypromellose) 10 GM gel 3.5 gm OD QHS RF: 0 sour pathak extract 1,000 MG capsule 1,000 mg PO DAILY RF: 0 calcium carbonate 200 mg calcium (500 mg) tablet,chewable 200 mg PO DAILY RF: 0 magnesium oxide 400 MG tablet 400 mg PO BID Qty: 60 RF: 3 sodium chloride 1 GM tablet 1,500 mg PO TID RF: 0 albuterol sulfate 6.7 GM HFA aerosol inhaler 90 mcg INHALATION Q6H PRN (Reason: Shortness Of Breath) RF: 0 prednisone 10 mg tablet 10 mg PO BID RF: 0 furosemide 20 mg tablet 20 mg PO TID RF: 0 Follow Up Plan Follow up with: Travis Johnson MD [Primary Care Provider] - Patient Disposition: [facility] Prognosis: Fair Rehab Potential: Serious I certify that the patient requires SNF services: No Overall status at discharge: patient is not back to baseline Discharge Date/Time: 03/20/20 21:50 Discharge Orders: Discharge Order (Routine); Ordered 03/20/20 Ordered By: Chemo Betancourt Discharge Comment: [facility] QUALITY VTE Deep Vein Thrombosis/Pulmonary Embolism Present on Admission: No
[2020-03-20] MEDS ORDERED: CARBOXYMETHYLCELLULOSE SODIUM 1 EACH DROPER.GEL OD SCH ×2 (21:00)
[2020-03-20] MEDS ORDERED: [UNRECOGNIZED DRUG - OTHER] TOPICAL SCH ×2 (21:00)
[2020-03-20] MEDS ORDERED: DOCUSATE SODIUM 100 MG CAPSULE PO SCH ×2 (21:00)
[2020-03-20] MEDS ORDERED: MAGNESIUM OXIDE 400 MG TABLET PO SCH ×2 (21:00)
[2020-03-20] MEDS ORDERED: HYDROXYCHLOROQUINE 200 MG TABLET PO SCH ×2 (21:00)
[2020-03-20] MEDS ORDERED: HEPARIN 5,000 UNIT/ML VIAL SQ SCH (21:00)
[2020-03-20] MEDS ORDERED: SENNOSIDES/DOCUSATE SODIUM 1 TAB TABLET PO SCH ×2 (21:00)
[2020-03-20] MEDS ORDERED: NORTRIPTYLINE 10 MG CAPSULE PO SCH ×2 (21:00)
[2020-03-20] MEDS ORDERED: LACTOPEROXI/GLUC OXID/POT THIO 1 EACH GEL..EA. TOPICAL SCH ×2 (21:00)
[2020-03-20] MEDS ORDERED: MELATONIN 3 MG TABLET PO PRN ×2 (21:00)
--- NOTE | 2020-03-20 21:40 | Emergency Department Note ---
HPI General Chief complaint: Shortness of Breath/Dyspnea Stated complaint: shortness of breath Time Seen by Provider: 03/18/20 13:50 Source: patient and EMS Mode of arrival: wheelchair Limitations: no limitations History of Present Illness HPI Narrative: Narrative: I was called for a CODE BLUE in the ICU. This patient was unresponsive and in PEA per nursing staff. They had already started doing CPR were trying to get the automatic CPR Fawad machine going. Patient already had central line in place and respiratory therapy was doing [id number]. They were having trouble keeping her oxygen saturations up After getting report-they said patient coded at 750 p.m. I assessed the patient and found that she was breathing agonally. She has a pacemaker in place and known cardiomyopathy with ejection fraction of 35% on last echo. She is here for COPD exacerbation but may have had a cardiac event earlier today. Anyways we continue to do CPR and arrange for intubation as we were having difficulty keeping her oxygen up. She would intermittently come around and we would get a pulse she would start moving her arms and open her eyes and then she would go unresponsive again and we would have to start CPR. This happened multiple times. See code notes. It is difficult to detect a pulse and so we had to use Doppler. I was there approximately 10 minutes when hospitalist arrived-please see nursing notes for exact time-we were doing CPR and [id number] with intermittent success. See his code note for full details of his decision making. I intubated her see note below. Intubation note. I first tried to intubate her when she was unresponsive-I took out her dentures. However she started fighting me, so I stopped and reassessed. She required vwo-[id number] again. When she went unresponsive again I tried again but she was moving her tongue around and clenching her jaw. Again CPR would work we could get return of pulse and then she would go unresponsive again. We continued the iul-icloh-eyco between attempts and during CPR. Anyways at this point we gave her 1 of Versed and 10 mg of rocuronium-see nursing note for time and dose. This time I was able to see the cords clearly and insert the tube to 20 cm. I verified to position in the trachea with colorimetric change and auscultating. We had good chest rise with [id number]. Ordered ventilator and post intubate chest x-ray Related Data Home Medications Medication Instructions Recorded Confirmed multivitamin 1 tab PO QDAY tab 11/02/14 03/18/20 bacitracin 1 dose INTRANASAL BID 08/21/17 03/18/20 saliva stimulant comb. no.7 1 dose PO QHS 08/21/17 03/18/20 artificial tears(hypromellose) 3.5 gm OD QHS 01/23/18 03/18/20 aspirin 81 mg tablet,delayed 81 mg PO QHS 01/23/18 03/18/20 release sour pathak extract 1,000 mg PO DAILY 01/23/18 03/18/20 bisoprolol fumarate 5 mg tablet 10 mg PO QDAY tab 04/01/18 03/18/20 calcium carbonate 200 mg calcium 200 mg PO DAILY 08/04/18 03/18/20 (500 mg) chewable tablet lisinopril 2.5 mg tablet 2.5 mg PO QDAY 10/01/18 03/18/20 nortriptyline 10 mg capsule 10 mg PO HS 04/03/19 03/18/20 albuterol sulfate 90 mcg INHALATION Q6H PRN 10/01/19 03/18/20 sodium chloride 1,500 mg PO TID 10/01/19 03/18/20 fluticasone 250 mcg-salmeterol 50 1 inh INHALATION Q12H 12/22/19 03/18/20 mcg/dose blistr powdr for inhalation furosemide 20 mg PO TID 03/18/20 03/18/20 prednisone 10 mg PO BID 03/18/20 03/18/20 Previous Rx's Medication Instructions Recorded hyoscyamine sulfate 0.125 mg 0.125 mg PO Q6H PRN #60 tab 09/05/16 sublingual tablet hydrocodone 5 mg-acetaminophen 325 0.5 tab PO Q8H PRN #20 tab 01/22/17 mg tablet celecoxib 200 mg capsule 200 mg PO QDAY PRN #180 cap 05/30/18 magnesium oxide 400 mg PO BID #60 tab 12/27/18 C-Ket 5%-G 6%-D 3% See Rx Instructions .ROUTE 05/22/19 .COMPLEX #1 tube denosumab 60 mg/mL subcutaneous 60 mg SUB-Q [id number] #1 ml 05/27/19 syringe tiotropium bromide 18 mcg capsule 1 cap INHALATION QDAY #90 puff 06/03/19 with inhalation device pilocarpine HCl 5 mg tablet 5 mg PO TID #270 tab 11/13/19 hydroxychloroquine 200 mg tablet See Rx Instructions PO BID #180 tab 12/14/19 ipratropium 0.5 mg-albuterol 3 mg 3 ml INHALATION Q6H PRN #180 ml 01/07/20 (2.5 mg base)/3 mL nebulization soln potassium chloride 10 mEq 10 meq PO QDAY #90 tab 01/26/20 tablet,extended release atorvastatin 20 mg tablet 20 mg PO QDAY #90 tab 03/08/20 budesonide 3 mg 3 mg PO TID 90 Days #270 each 03/15/20 capsule,delayed,extended release lansoprazole 30 mg capsule,delayed 30 mg PO BID #180 cap 03/15/20 release Allergies Allergy/AdvReac Type Severity Reaction Status Date / Time azathioprine [From Imuran] Allergy Severe Anaphylaxis Verified 03/18/20 20:41 azithromycin [From Zithromax] Allergy Severe Anaphylaxis Verified 03/18/20 20:41 clarithromycin Allergy Intermediate Vomiting Verified 03/18/20 20:41 clindamycin AdvReac Intermediate Diarrhea Verified 03/18/20 20:41 adhesive tape AdvReac Mild Rash Verified 03/18/20 20:41 codeine AdvReac Mild Vomiting Verified 03/18/20 20:41 Erythromycin Base AdvReac Mild Vomiting Verified 03/18/20 20:41 morphine AdvReac Mild Vomiting Verified 03/18/20 20:41 doxycycline AdvReac Vomiting Verified 03/18/20 20:41 Review of Systems ROS ROS Narrative: N[facility]ative: [facility] Narrative Patient History Narrative: Narrative: Medical/Surgical/Family History All Active Problems (Updated 03/20/20 @ 17:22 by Mir Fisher MD) Electrolyte abnormality (Acute) Lactic acidosis (Acute) Acute renal failure (ARF) (Acute) Transaminitis (Acute) Cardiogenic shock (Chronic) Abdominal pain (Acute) Constipation (Acute) Acute exacerbation of chronic obstructive pulmonary disease (COPD) (Acute) Hypomagnesemia (Acute) Acute hyperkalemia (Acute) Respiratory failure (Acute) Pedal edema (Chronic) COPD (chronic obstructive pulmonary disease) (Acute) Acute URI (Acute) Myofascial pain (Chronic) Cellulitis (Acute) Cellulitis (Acute) Spasm of thoracic back muscle (Acute) Cellulitis of finger of left hand (Acute) Cellulitis of finger (Acute) Dyspnea on exertion (Acute) Cellulitis of right hand (Acute) Nausea & vomiting (Acute) Abnormal lung sounds (Acute) Pacemaker (Chronic) Cerebrovascular disease (Chronic) Acute coronary syndrome (Chronic) Chronic obstructive pulmonary disease (Chronic) Hypertension, essential (Chronic) SIADH (syndrome of inappropriate ADH production) (Chronic) Hyponatremia (Chronic) Falls (Chronic) Cellulitis (Acute) Scoliosis of lumbar spine (Chronic) Hyperlipidemia (Chronic) Crohn's disease (Chronic) Gastroparesis (Chronic) Encounter for long-term current use of high risk medication (Chronic) Sicca syndrome (Chronic) Pulmonary fibrosis, postinflammatory (Chronic) Bronchiectasis (Chronic) Chronic thoracic back pain (Chronic) DDD (degenerative disc disease), thoracic (Chronic) Compression fracture of body of thoracic vertebra (Chronic) Osteopenia (Chronic) H/O calcium pyrophosphate deposition disease (CPPD) (Chronic) Osteoarthritis (Chronic) Inflammatory arthropathy (Chronic) Gastroesophageal reflux (Chronic) Back pain (Chronic) Melanoma of skin (Chronic) Sjogren's syndrome (Chronic) Polyarthropathy or polyarthritis of multiple sites (Chronic) Analgesic use (Chronic) Hernia, hiatal (Chronic) Enthesopathy of hip region (Chronic) Early satiety (Chronic) Medical History Abdominal bloating (Resolved) Abdominal pain (Resolved) Acute coronary syndrome (Chronic) Acute thoracic back pain (Resolved) Anal benign neoplasm (Resolved) 11/18/2014 - Dr. Mcgrathtern Anal fissure (Resolved) stricture Analgesic use (Chronic) Ankle pain (Resolved 07/22/14) Right ankle Arthritis (Resolved) Back pain (Chronic) Bladder infection, acute (Resolved) Bronchiectasis (Chronic) Bronchitis (Resolved) Cellulitis (Resolved) Cellulitis (Acute) Cellulitis (Acute) Cellulitis (Acute) Cerebrovascular disease (Chronic) Chronic obstructive pulmonary disease (Chronic) Chronic thoracic back pain (Chronic) Compression fracture of body of thoracic vertebra (Chronic) COPD (chronic obstructive pulmonary disease) with acute bronchitis (Resolved) Crohn's disease (Chronic) CVA (cerebral vascular accident) (Chronic) states "in December 2017 had a mini stroke" DDD (degenerative disc disease), thoracic (Chronic) Dehydration (Resolved) Diarrhea (Resolved) Diverticulosis of colon (Inactive) 11/18/2014 - Dr. Ramon Early satiety (Chronic) Encounter for long-term current use of high risk medication (Chronic) Enthesopathy of hip region (Chronic) Fall (Resolved) Falls (Chronic) Fracture of finger, closed (Resolved) R thumb Fracture of pubic ramus (Resolved) Gastroenteritis (Resolved) Gastroesophageal reflux (Chronic) Gastroparesis (Chronic) Gout (Resolved) pseudogout Gouty arthropathy (Resolved) H/O calcium pyrophosphate deposition disease (CPPD) (Chronic) Hernia, hiatal (Chronic) History of urinary tract infection (Resolved) Hyperlipidemia (Chronic) Hypertension, essential (Chronic) Hyponatremia (Inactive) Hyponatremia (Chronic) Hyponatremia with decreased serum osmolality (Inactive) see SIADH Inflammatory arthropathy (Chronic) Melanoma of skin (Chronic) Minor head injury (Resolved) Myofascial pain (Chronic) Nausea (Resolved) Nausea & vomiting (Resolved) Nausea and vomiting (Resolved) No problem, feared complaint unfounded (Resolved) Osteoarthritis (Chronic) Osteopenia (Chronic) Pacemaker (Chronic) and AICD present. 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 Sicca syndrome (Chronic) Sjogren's syndrome (Chronic) Slurring of speech (Resolved) Transient cerebral ischemia (Resolved) Urinary tract infection (Resolved) UTI (urinary tract infection) (Resolved) Ventricular fibrillation (Resolved ~2010) ques torsades de pointes Weakness (Resolved) Weight loss (Inactive) Weight loss, unintentional (Inactive) Word finding difficulty (Resolved) Wound cellulitis (Resolved) Wound infection (Resolved) Surgical History History of appendectomy (Resolved) History of automatic internal cardiac defibrillator (AICD) (Resolved) History of biliary stent insertion (Resolved) History of cholecystectomy (Resolved) History of colectomy (Resolved) History of colonoscopy (Resolved 02/22/15) Dr. Ramon - [place] History of esophagogastroduodenoscopy (Resolved 09/17/14) Dr. Ramon - Gastritis History of hysterectomy (Resolved) History of intestinal surgery (Resolved) partial bowel resection History of knee replacement (Resolved) bilateral History of rectal surgery (Resolved) fissure repair History of sigmoidoscopy (Resolved 07/27/15) 02/22/15 Dr. Ramon History of total hip arthroplasty (Resolved) R Status post cardiac pacemaker procedure (Chronic) recently replacement of pacer and icd per patient. Status post laparoscopic-assisted sigmoidectomy (Chronic 10/11/15) with Kenalog injection Family History Sister Alzheimer's disease Unknown Asthma Essential hypertension Malignant neoplasm Brother Atherosclerosis of coronary artery Father , at 69y Atherosclerosis of coronary artery Mother , at 90y of old age Atherosclerosis of coronary artery Osteoarthritis Social History Smoking Status: Former smoker Alcohol Intake Frequency: former alcohol drinker Substance Use: does not use Exam Narrative Narrative: Narrative: General Limitations: no limitations Course Vital Signs Vital signs: Vital Signs Temperature 97.0 F 03/18/20 13:41 Pulse Rate 63 03/18/20 13:41 Respiratory Rate 22 03/18/20 13:41 Blood Pressure 109/74 03/18/20 13:41 Pulse Oximetry (%) 89 L 03/18/20 13:41 Temperature 96.3 F L 03/20/20 16:00 Pulse Rate 62 03/20/20 19:23 Respiratory Rate 12 03/20/20 21:06 Blood Pressure 86/60 03/20/20 18:31 Pulse Oximetry (%) 94 03/20/20 18:01 [facility] MDM Narrative Medical decision making narrative: Narrative: Lab Data Result diagrams: 03/20/20 11:28 03/20/20 18:08 Labs: Lab Results 03/18/20 03/18/20 03/18/20 Range/Units 14:52 14:53 14:53 WBC (4.5-11.0) K/mcL RBC (4.00-5.20) M/mcL Hgb (12.0-15.0) g/dL Hct (36.0-48.0) % MCV (80.0-100.0) fL MCH (26.0-34.0) pg MCHC (31.0-36.0) g/dL RDW (11.5-14.5) % Plt Count (140-440) K/mcL MPV (7.4-10.4) fL Neut % (Auto) (38.0-78.0) % Lymph % (Auto) (15.0-49.0) % Grundy % (Auto) (1.0-12.0) % Eos % (Auto) (0.0-7.0) % Baso % (Auto) (0.0-2.0) % Lymph # (Auto) (1.50-4.80) K/mcL Grundy # (Auto) (0.10-0.90) K/mcL Eos # (Auto) (0.00-0.70) K/mcL Baso # (Auto) (0.00-0.20) K/mcL Absolute Neutrophils (1.80-8.00) K/mcL VBG Lactic Acid 2.3 H (0.5-2.0) mmol/L Sodium 126 L (133-145) mmol/L Potassium 5.2 H (3.3-5.1) mmol/L Chloride 94 L (96-108) mmol/L Carbon Dioxide 18 L (22-30) mmol/L Anion Gap 14.0 (8.0-16.0) BUN 18 (8-23) mg/dL Creatinine 1.0 (0.6-1.1) mg/dL GFR Calculation 52 Glucose 145 H (70-105) mg/dL Calcium 8.3 L (8.6-10.4) mg/dL Magnesium 1.1 L (1.6-2.5) mg/dL Total Bilirubin 0.6 (0.1-1.0) mg/dL AST 90 H (<32) U/L ALT 75 H (<40) U/L Alkaline Phosphatase 83 (39-117) U/L Troponin T 0.32 H* (<0.03) ng/mL NT-Pro-B Natriuret Pep 78814.0 H (<450.0) pg/mL Total Protein 6.0 (5.9-8.4) gm/dL Albumin 3.4 (3.2-5.2) gm/dL Globulin 2.6 (2.2-3.7) gm/dL Albumin/Globulin Ratio 1.3 (1.0-2.3) Lipase 34 (7-60) U/L Procalcitonin (<0.10) ng/mL Urine Color Urine Appearance (Clear) Urine pH (5.0-9.0) Ur Specific Leonard (1.000-1.035) Urine Protein (Negative) mg/dL Urine Glucose (UA) (Negative) mg/dL Urine Ketones (Negative) mg/dL Urine Occult Blood (Negative) mg/dL Urine Nitrate (Negative) Urine Bilirubin (Negative) mg/dL Urine Urobilinogen mg/dL Ur Leukocyte Esterase (Negative) /ug Urine RBC (0-1) /hpf Urine WBC (0-4) /hpf Ur Squamous Epith Cells (0-4) /hpf Urine Bacteria (0) /hpf Hyaline Casts (0-2) /lph Urine Mucus (None) /hpf Ur Culture Indicated? 03/18/20 03/18/20 03/18/20 Range/Units 14:53 14:54 16:07 WBC 6.1 (4.5-11.0) K/mcL RBC 3.85 L (4.00-5.20) M/mcL Hgb 10.6 L (12.0-15.0) g/dL Hct 32.6 L (36.0-48.0) % MCV 84.7 (80.0-100.0) fL MCH 27.5 (26.0-34.0) pg MCHC 32.5 (31.0-36.0) g/dL RDW 15.5 H (11.5-14.5) % Plt Count 195 (140-440) K/mcL MPV 10.4 (7.4-10.4) fL Neut % (Auto) 85.6 H (38.0-78.0) % Lymph % (Auto) 7.5 L (15.0-49.0) % Grundy % (Auto) 6.9 (1.0-12.0) % Eos % (Auto) 0 (0.0-7.0) % Baso % (Auto) 0 (0.0-2.0) % Lymph # (Auto) 0.46 L (1.50-4.80) K/mcL Grundy # (Auto) 0.42 (0.10-0.90) K/mcL Eos # (Auto) 0 (0.00-0.70) K/mcL Baso # (Auto) 0 (0.00-0.20) K/mcL Absolute Neutrophils 5.22 (1.80-8.00) K/mcL VBG Lactic Acid (0.5-2.0) mmol/L Sodium (133-145) mmol/L Potassium (3.3-5.1) mmol/L Chloride (96-108) mmol/L Carbon Dioxide (22-30) mmol/L Anion Gap (8.0-16.0) BUN (8-23) mg/dL Creatinine (0.6-1.1) mg/dL GFR Calculation Glucose (70-105) mg/dL Calcium (8.6-10.4) mg/dL Magnesium (1.6-2.5) mg/dL Total Bilirubin (0.1-1.0) mg/dL AST (<32) U/L ALT (<40) U/L Alkaline Phosphatase (39-117) U/L Troponin T (<0.03) ng/mL NT-Pro-B Natriuret Pep (<450.0) pg/mL Total Protein (5.9-8.4) gm/dL Albumin (3.2-5.2) gm/dL Globulin (2.2-3.7) gm/dL Albumin/Globulin Ratio (1.0-2.3) Lipase (7-60) U/L Procalcitonin 0.16 H (<0.10) ng/mL Urine Color Yellow Urine Appearance Clear (Clear) Urine pH 5.0 (5.0-9.0) Ur Specific Leonard 1.015 (1.000-1.035) Urine Protein 30 A (Negative) mg/dL Urine Glucose (UA) Negative (Negative) mg/dL Urine Ketones Negative (Negative) mg/dL Urine Occult Blood Negative (Negative) mg/dL Urine Nitrate Pos A (Negative) Urine Bilirubin Negative (Negative) mg/dL Urine Urobilinogen Negative mg/dL Ur Leukocyte Esterase 75 A (Negative) /ug Urine RBC 0 (0-1) /hpf Urine WBC 8 H (0-4) /hpf Ur Squamous Epith Cells 7 H (0-4) /hpf Urine Bacteria Many A (0) /hpf Hyaline Casts 19 H (0-2) /lph Urine Mucus Few A (None) /hpf Ur Culture Indicated? No Discharge Plan Patient/Caregiver Discharge Instructions Pt seen by [employer]/PA only: No Clinical Impression: Acute exacerbation of chronic obstructive pulmonary disease (COPD), Hypomagnesemia, Acute hyperkalemia Respiratory failure Qualifiers: Chronicity: acute Respiratory failure complication: hypoxia Qualified Code(s): J96.01 - Acute respiratory failure with hypoxia Activity: other Patient Disposition: Xfer As Inpt ([facility]) Condition: Fair Discharge Date/Time: 03/18/20 17:50
[2020-03-20] MEDS ORDERED: EPINEPHrine 1 MG/10 ML (1:10,000) SYRINGE IV ONE (21:49)
[2020-03-21] MEDS ORDERED: POTASSIUM CHLORIDE 10 MEQ TABLET PO SCH ×2 (08:00)
[2020-03-21] MEDS ORDERED: predniSONE 20 MG TABLET PO SCH ×2 (08:00)
[2020-03-21] MEDS ORDERED: ATORVASTATIN 20 MG TABLET PO SCH ×2 (09:00)
[2020-03-21] MEDS ORDERED: CALCIUM CARBONATE 500 MG TAB.CHEW PO SCH ×2 (09:00)
[2020-03-21] MEDS ORDERED: MULTIVIT,THER IRON,CA,FA & MIN 1 TABLET PO SCH ×2 (09:00)
[2020-03-21] MEDS ORDERED: FUROSEMIDE 20 MG TABLET PO SCH ×2 (09:00)
[2020-03-21] MEDS ORDERED: BISOPROLOL 5 MG TABLET PO SCH (09:00)
[2020-03-21] MEDS ORDERED: TIOTROPIUM BROMIDE 18 MCG INHALANT INH SCH ×2 (09:00)
--- NOTE | 2020-03-21 10:37 | Procedure Note ---
PROC Central Line Placement Right IJ: Consent obtained: written consent Date of Procedure: 03/19/20 Time out performed: Yes Patient placed on monitor/pulse ox: Yes MD prep: mask, sterile gown, sterile gloves, cap and other Local anesthesia used: lidocaine 1% Ultrasound used for placement: Yes Central line lumen inserted: quad and 16 cm Post procedure: sutured in place, good blood return, all ports aspirated, flushed, capped and sterile dressing applied Post procedure x-ray: tip of catheter in good position and no pneumothorax seen Patient tolerated procedure: no complications
[2020-03-21] MEDS ORDERED: NOREPINEPHRINE BITARTRATE 16 MG in 0.9 % SODIUM CHLORIDE 234 ML IV SCH (11:00)
[2020-03-22] MEDS ORDERED: LEVOFLOXACIN 750 MG/150 ML BAG IV SCH (09:00)
[2020-03-22] MEDS ORDERED: LEVOFLOXACIN 500 MG/100 ML BAG IV SCH ×2 (09:00)
== END 2020-03-20 21:50 | disposition short-term general hospital (02) | DRG 291 ==
LOC: ED 13:37 → ICU 17:50 → MEDSUR 03-19 17:23 → ICU 03-20 10:06
PROVIDERS: ADMIT Internal Medicine; ATTEND Internal Medicine